=== PATIENT | male | born 1945 | race Caucasian/White ===

== ENCOUNTER 2016-10-03 16:14 | Emergency (ER) | payer MEDICARE, OTHER ==
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
[2016-10-03] MEDS ORDERED: Furosemide 40 MG/4 ML VIAL IVPUSH ONE (16:49)
[2016-10-03] MEDS ORDERED: Sodium Chloride 0.9% 10 ML Syringe FLUSH PRN (16:49)
[2016-10-03] MEDS ORDERED: predniSONE 20 MG Tab PO ONE (18:09)
[2016-10-03 18:58] VITALS: BP 118/88
--- NOTE | 2016-10-04 07:10 | CR ---
Chest: Portable view of the chest was obtained. Comparison: Previous chest x-ray of 02/23/15. Heart size and mediastinum are within normal limits. Lungs are clear with no acute infiltrates. Bony structures are grossly intact. Impression: 1. Nothing acute is identified on portable chest x-ray. Diagnostic code #1
== END 2016-10-03 18:30 | disposition home or self-care (01) ==
LOC: JD.ED 16:14
DX: R07.89 Other chest pain (principal); I25.10 Atherosclerotic heart disease of native coronary artery without angina pectoris; I50.9 Heart failure, unspecified; E78.00 Pure hypercholesterolemia, unspecified; I10 Essential (primary) hypertension; I25.2 Old myocardial infarction; J44.9 Chronic obstructive pulmonary disease, unspecified; G47.30 Sleep apnea, unspecified; N40.0 Benign prostatic hyperplasia without lower urinary tract symptoms; G20 Parkinson's disease; Z87.891 Personal history of nicotine dependence; Z88.8 Allergy status to other drugs, medicaments and biological substances; Z79.899 Other long term (current) drug therapy; Z79.82 Long term (current) use of aspirin; Z79.01 Long term (current) use of anticoagulants; Z95.5 Presence of coronary angioplasty implant and graft
CPT/HCPCS: 36415; 71010; 80053; 81001; 82553; 83880; 84484; 85025; 85610; 86140; 87040; 87804; 93005; 96374; 99285; A9270; J1940; J7050

== ENCOUNTER 2017-02-04 05:40 | Emergency (ER) | payer MEDICARE, OTHER ==
[2017-02-04] MEDS ORDERED: Sodium Chloride 0.9% 10 ML Syringe FLUSH PRN (06:01)
[2017-02-04] MEDS ORDERED: Albuterol/Ipratropium 3.0-0.5 MG/3 ML Neb Soln NEB ONE (06:02)
--- NOTE | 2017-02-04 06:05 | EDM.PDOC ---
<RitaReji A - Last Filed: 02/04/17 11:51> ED HPI GENERAL MEDICAL PROBLEM - General Chief Complaint: Chest Pain Stated Complaint: CHEST PAIN Time Seen by Provider: 02/04/17 05:50 - Related Data Allergies Allergy/AdvReac Type Severity Reaction Status Date / Time ampicillin Allergy Hives Verified 02/04/17 05:49 atorvastatin calcium Allergy Pain Verified 02/04/17 05:49 [From Lipitor] cefazolin sodium [From Ancef] Allergy Anaphylactic Verified 02/04/17 05:49 Shock lisinopril Allergy Cannot Verified 02/04/17 05:49 Remember NSAIDS (Non-Steroidal Allergy Hallucinati Verified 02/04/17 05:49 Anti-Inflamma ons IVP DYE Allergy Hives Uncoded 02/04/17 05:49 Home Meds: Home Meds Aspirin [Adult Low Dose Aspirin EC] 81 mg PO DAILY 10/26/13 [History] Carbidopa/Levodopa [Sinemet Cr 25-100 mg] 1 tab PO TID 10/26/13 [History] ClonazePAM [KlonoPIN] 1 mg PO BEDTIME 10/26/13 [History] Clopidogrel [Plavix] 75 mg PO DAILY 10/26/13 [History] FA/Lycopene/Lut/MV,Ca,Iron,Min [Centrum] 1 tab PO DAILY 10/26/13 [History] Fenofibric Acid (Choline) [Trilipix] 135 mg PO DAILY 10/26/13 [History] Finasteride [Proscar] 5 mg PO DAILY 10/26/13 [History] Fish Oil/[place]-3 Fatty Acids [Fish Oil] 1 each PO DAILY 10/26/13 [History] Homeopathic Product PRN 10/26/13 [History] Metoprolol Succinate [Toprol XL] 25 mg PO DAILY 10/26/13 [History] Nitroglycerin [Nitrostat] 0.4 mg SL PRN 10/26/13 [History] Rosuvastatin [Crestor] 40 mg PO DAILY 10/26/13 [History] Selegiline HCl [Eldepryl] 5 mg PO ASDIRECTED 10/26/13 [History] Solifenacin [Vesicare] 5 mg PO DAILY 10/26/13 [History] Tamsulosin HCl [Flomax] 0.4 mg PO ASDIRECTED 10/26/13 [History] Hydrocodone/Acetaminophen [Butternut 5-325] 1 tab PO Q6HR PRN #14 tablet 08/30/14 [ Rx] oxyCODONE HCl/Acetaminophen [Percocet 5-325 mg Tablet] 1 - 2 each PO Q4H PRN # 12 tablet 10/03/16 [Rx] Magnesium Chloride [Slow-Mag] 71.5 mg PO BID #60 tablet. 02/04/17 [Rx] Ondansetron [Zofran ODT] 4 mg PO Q8H PRN #10 tab.dis 02/04/17 [Rx] Course - Vital Signs Last Recorded V/S: Last Vital Signs Temp 37.2 C 02/04/17 12:09 Pulse 74 02/04/17 12:09 Resp 13 02/04/17 12:09 BP 120/80 02/04/17 12:09 Pulse Ox 95 02/04/17 12:09 - Orders/Labs/Meds Labs: Laboratory Tests 02/04/17 02/04/17 02/04/17 Range/Units 05:52 05:52 05:52 WBC 8.91 (4.23-9.07) K/mm3 RBC 5.47 (4.63-6.08) M/mm3 Hgb 15.6 (13.7-17.5) gm/L Hct 45.7 (40.1-51.0) % MCV 83.5 (79.0-92.2) fl MCH 28.5 (25.7-32.2) pg MCHC 34.1 (32.2-35.5) g/dl RDW Std Deviation 42.0 (35.1-43.9) fL Plt Count 209 (163-337) K/mm3 MPV 9.4 (9.4-12.3) fl Neutrophils % (Manual) 77 H (40-60) % Band Neutrophils % 7 (0-10) % Lymphocytes % (Manual) 8 L (20-40) % Atypical Lymphs % 0 % Monocytes % (Manual) 8 (2-10) % Eosinophils % (Manual) 0 L (0.8-7.0) % Basophils % (Manual) 0 L (0.2-1.2) Platelet Estimate Adequate Plt Morphology Comment Normal RBC Morph Comment Normal PT 11.7 (8.0-13.0) SECONDS INR 1.07 Sodium 135 L (136-145) mEq/L Potassium 3.7 (3.5-5.1) mEq/L Chloride 101 (98-107) mEq/L Carbon Dioxide 25 (21-32) mEq/L Anion Gap 12.7 (5-15) BUN 23 H (7-18) mg/dL Creatinine 1.2 (0.7-1.3) mg/dL Est Cr Clr Drug Dosing 49.11 mL/min Estimated GFR (MDRD) 60 (>60) mL/min BUN/Creatinine Ratio 19.2 H (14-18) Glucose 123 H (83-115) mg/dL Calcium 8.6 (8.5-10.1) mg/dL Magnesium 1.4 L (1.8-2.4) mg/dl Total Bilirubin 0.5 (0.2-1.0) mg/dL AST 21 (15-37) U/L ALT 38 (16-63) U/L Alkaline Phosphatase 59 (46-116) U/L CK-MB (CK-2) 1.0 (0-3.6) ng/ml Troponin I < 0.017 (0.00-0.056) ng/mL C-Reactive Protein 2.1 H* (<1.0) mg/dL B-Natriuretic Peptide (0-100) pg/mL Total Protein 7.7 (6.4-8.2) g/dl Albumin 3.8 (3.4-5.0) g/dl Globulin 3.9 gm/dL Albumin/Globulin Ratio 1.0 (1-2) 02/04/17 Range/Units 05:52 WBC (4.23-9.07) K/mm3 RBC (4.63-6.08) M/mm3 Hgb (13.7-17.5) gm/L Hct (40.1-51.0) % MCV (79.0-92.2) fl MCH (25.7-32.2) pg MCHC (32.2-35.5) g/dl RDW Std Deviation (35.1-43.9) fL Plt Count (163-337) K/mm3 MPV (9.4-12.3) fl Neutrophils % (Manual) (40-60) % Band Neutrophils % (0-10) % Lymphocytes % (Manual) (20-40) % Atypical Lymphs % % Monocytes % (Manual) (2-10) % Eosinophils % (Manual) (0.8-7.0) % Basophils % (Manual) (0.2-1.2) Platelet Estimate Plt Morphology Comment RBC Morph Comment PT (8.0-13.0) SECONDS INR Sodium (136-145) mEq/L Potassium (3.5-5.1) mEq/L Chloride (98-107) mEq/L Carbon Dioxide (21-32) mEq/L Anion Gap (5-15) BUN (7-18) mg/dL Creatinine (0.7-1.3) mg/dL Est Cr Clr Drug Dosing mL/min Estimated GFR (MDRD) (>60) mL/min BUN/Creatinine Ratio (14-18) Glucose (83-115) mg/dL Calcium (8.5-10.1) mg/dL Magnesium (1.8-2.4) mg/dl Total Bilirubin (0.2-1.0) mg/dL AST (15-37) U/L ALT (16-63) U/L Alkaline Phosphatase (46-116) U/L CK-MB (CK-2) (0-3.6) ng/ml Troponin I (0.00-0.056) ng/mL C-Reactive Protein (<1.0) mg/dL B-Natriuretic Peptide 55 (0-100) pg/mL Total Protein (6.4-8.2) g/dl Albumin (3.4-5.0) g/dl Globulin gm/dL Albumin/Globulin Ratio (1-2) Meds: Medications Discontinued Medications Generic Name Dose Route Start Last Admin Trade Name Freq PRN Reason Stop Dose Admin Acetaminophen 650 mg 02/04/17 09:36 02/04/17 10:12 Tylenol PO 02/04/17 09:37 Not Given ONETIME ONE Acetaminophen 650 mg 02/04/17 10:06 02/04/17 10:10 Tylenol PO 02/04/17 10:07 650 mg NOW ONE Administration Acetaminophen Confirm 02/04/17 10:11 02/04/17 10:13 Tylenol Administered 02/04/17 10:12 Not Given Dose 650 mg .ROUTE .STK-MED ONE Al Hydroxide/Mg Hydroxide 30 ml 02/04/17 06:30 02/04/17 06:37 Mag-Al Plus PO 02/04/17 06:31 30 ml ONETIME ONE Administration Albuterol/Ipratropium 3 ml 02/04/17 06:02 02/04/17 06:11 Duoneb 3.0-0.5 Mg/3 Ml NEB 02/04/17 06:03 3 ml ONETIME ONE Administration Magnesium Sulfate 2 gm/ Premix 50 mls @ 25 mls/hr 02/04/17 07:08 02/04/17 07: 30 IV 02/04/17 09:07 25 mls/hr ONETIME ONE Administration Sodium Chloride 1,000 mls @ 150 mls/hr 02/04/17 07:15 02/04/17 07:29 Normal Saline IV 150 mls/hr ASDIRECTED MORALES Administration Sodium Chloride 10 ml 02/04/17 06:01 02/04/17 06:37 Saline Flush FLUSH 10 ml ASDIRECTED PRN Administration Keep Vein Open - Re-Assessments/Exams Free Text/Narrative Re-Assessment/Exam: 02/04/17 11:51 Test results discussed with the patient and his son. Today's workup is remarkable for significantly depressed magnesium, otherwise, the remainder of his workup is unremarkable. The patient received a 2 g magnesium rider here in the ED, and Dr. Gonzalez entered a prescription for Slow-Mag I suspect that the patient's symptoms are related to viral gastroenteritis. The patient states that he feels well enough to go home. I will e-prescribe Zofran. I would like the patient to follow-up with his PCP, Dr. Renee Monreal, tomorrow. 02/04/17 11:56 Departure - Departure Time of Disposition: 11:55 Disposition: Home, Self-Care 01 Condition: Good Clinical Impression: Viral gastroenteritis, Hypomagnesemia - Discharge Information Prescriptions: Magnesium Chloride [Slow-Mag] 71.5 mg PO BID #60 tablet. Ondansetron [Zofran ODT] 4 mg PO Q8H PRN #10 tab.dis PRN Reason: Nausea/Vomiting Instructions: Viral Gastroenteritis, Adult, [id number] Referrals: Renee Monreal MD [Primary Care Provider] - Forms: ED Department Discharge Additional Instructions: You were seen in the emergency room for nausea, vomiting, diarrhea, chest pain, and shortness of breath. Workup in the ER included blood work, an ECG, and a chest x-ray. You were not able to give us a stool sample. Your entire workup was unremarkable, with the exception of your magnesium found to be low at 1.4. You received IV magnesium while in the ER. You have been prescribed Slow-Mag. Take one tablet twice a day, as prescribed. You have been prescribed the anti-nausea medicine Zofran. Dissolve 1 tablet on your tongue up to every 8 hours, as needed for nausea/vomiting. If your diarrhea returns, we recommend you take [id number] Imodium ( loperamide) as directed on the label. Stay adequately hydrated. We recommend you contact the office of your PCP, Dr. Renee Monreal, in the morning, to notify her of today's ER visit. If any other problems, please do not hesitate to return to the ER. <Bryn Gonzalez - Last Filed: 02/06/17 06:57> ED HPI GENERAL MEDICAL PROBLEM - General Source of Information: Reports: Patient History Limitations: Reports: No Limitations - History of Present Illness INITIAL COMMENTS - FREE TEXT/NARRATIVE: 71-year-old male attends the ED due to nausea vomiting and diarrhea and some central chest discomfort and shortness of breath. Patient states that he's became ill yesterday with bad burning in his epigastrium and lower chest has had reflux and vomiting. Stop the was some blood in his emesis. Of note he is on Pradaxa and aspirin. He's had loose watery stools almost every hour. He doesn 't believe there is much chance of him having foodborne illness. He has a history of coronary disease with 3 stents placed he believes in 2004. He has a history of congestive heart failure. He remains on Pradaxa and aspirin daily. Only recent changes to medications have been eyedrops as he underwent right cataract extraction on Sunday, January 31 and YAG laser treatment to secondary cataract on his left eye at the same time. Reports his vision is very clear. He' s not slept at all tonight he's been up sitting in the easy chair most the time or in the bathroom sitting on the toilet. He's had some chills. He feels slightly warm to palpation. Onset: Sudden Onset Date: 02/03/17 Duration: Hour(s):, Getting Worse Location: Reports: Chest (Lower chest up into his throat.), Abdomen Lower Chest Pain Score (Numeric/FACES): 6 Headache Pain Score (Numeric/FACES): 2 Past Medical History Cardiovascular History: Reports: CAD, Heart Failure, High Cholesterol, Hypertension, HI (Inferior wall myocardial infarction), Stents Other Cardiovascular History: 3 stents placed in about 2004. 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 - Past Surgical History Musculoskeletal Surgical History: Reports: Other (See Below) Dermatological Surgical History: Reports: Skin Graft Social & Family History - Tobacco Use Smoking Status *Q: Former Smoker Years of Tobacco use: 34 Used Tobacco, but Quit: Yes Month Tobacco Last Used: 15 Second Hand Smoke Exposure: No - Caffeine Use Caffeine Use: Reports: Coffee, Soda - Alcohol Use Days Per Week of Alcohol Use: 0 - Recreational Drug Use Recreational Drug Use: No - Living Situation & Occupation Living situation: Reports: Other ED ROS GENERAL - Review of Systems Review Of Systems: See Below Constitutional: Reports: Chills, Malaise, Weakness, Fatigue, Decreased Appetite. Denies: Fever HEENT: Reports: Other (Had right cataract extraction 4 days ago and no problems with his vision.) Respiratory: Reports: Shortness of Breath, Wheezing (Quite severe over the last 24 hours.), Cough (Occasional sputum production. Has appreciated brief spots of hemoptysis at times.). Denies: Pleuritic Chest Pain Cardiovascular: Reports: Chest Pain (Controlled with medication), Blood Pressure Problem, Dyspnea on Exertion (Chronic in both lower extremities. Left greater than right.), Edema, Orthopnea ( see history of present illness). Denies: Claudication, Lightheadedness, Palpitations Endocrine: Reports: Fatigue GI/Abdominal: Reports: Abdominal Pain, Diarrhea (Burning in the epigastrium and associated lower abdominal cramping pain with loose watery stools.), Nausea, Vomiting. Denies: Hematemesis, Hematochezia, Melena : Reports: Frequency, Other (Slow urinary stream. Has BPH. Nocturia usually 3.) Musculoskeletal: Reports: Back Pain, Joint Pain (Left ankle and lower extremity due to previous fractures) Skin: Reports: No Symptoms, Other (Venous insufficiency changes in left lower extremity.) Neurological: Reports: Syncope, Difficulty Walking (Due to being short of breath ), Weakness. Denies: Confusion, Dizziness, Headache, Numbness, Tingling Psychiatric: Reports: No Symptoms Hematologic/Lymphatic: Reports: No Symptoms Immunologic: Reports: No Symptoms ED EXAM, GENERAL - Physical Exam Exam: See Below Exam Limited By: No Limitations General Appearance: Alert, Moderate Distress (Respiratory distress. He is working fairly hard to breathe. He is audible wheezing.) Eye Exam: Bilateral Eye: Normal Inspection (Cataract extractions sites healing well. Right eye) Throat/Mouth: Other (Lips are dry as is his oropharynx.) Head: Atraumatic, Normocephalic Neck: Normal Inspection, Non-Tender, Limited Range of Motion (Decreased range of motion of neck due to osteoarthritic changes. Loss of 10 extension and 5 of flexion. Loss of 10 lateral rotation and flexion.). No: Lymphadenopathy (L) , Lymphadenopathy (R) Respiratory/Chest: Lungs Clear, Respiratory Distress (Tachypnea get rest 22/m.) , Decreased Breath Sounds, Wheezing Cardiovascular: Regular Rate, Rhythm (Sinus tachycardia of 10 2/m.), No Murmur, No Rub. No: Normal Peripheral Pulses, No Edema, No Gallop, Systolic Murmur, Gallop/S3 Peripheral Pulses: 1+: Posterior Tibial (L), Posterior Tibial (R), Dorsalis Pedis (L), Dorsalis Pedis (R) GI/Abdominal: Normal Bowel Sounds, Soft, Non-Tender, Abnormal Bowel Sounds ( Hyperactive bowel sounds throughout.). No: Guarding, Rigid, Rebound, Tender Back Exam: Normal Inspection. No: Full Range of Motion, CVA Tenderness (L), CVA Tenderness (R) Extremities: Other (Previous fractures left lower extremity. He has skin grafting left medial distal tib-fib due to a nonhealing ulcer after fractures healed.) Neurological: Alert, Oriented, CN II-XII Intact, Normal Cognition Psychiatric: Normal Affect, Normal Mood Skin Exam: Warm, Intact, Normal Color, No Rash EKG INTERPRETATION EKG Date: 02/04/17 Time: 05:45 Rhythm: Other (Sinus tachycardia at 10 2/m) Rate (Beats/Min): 102 (Occasional PVCs.) [place]: LAD-Left [place] Deviation (Mild left axis deviation of -19) P-Wave: Present QRS: Other (There is early R-wave transition and then poor R-wave progression throughout the mid precordial leads. R wave transition. Consider septal hypertrophy. There are Q waves in leads II, III, and F aVF compatible with an old inferior wall myocardial infarction.) ST-T: Other (Wandering baseline in the limb leads. No definitive evidence of any ischemia changes.) QT: Normal Course - Orders/Labs/Meds Labs: Laboratory Tests 02/04/17 02/04/17 02/04/17 Range/Units 05:52 05:52 05:52 WBC 8.91 (4.23-9.07) K/mm3 RBC 5.47 (4.63-6.08) M/mm3 Hgb 15.6 (13.7-17.5) gm/L Hct 45.7 (40.1-51.0) % MCV 83.5 (79.0-92.2) fl MCH 28.5 (25.7-32.2) pg MCHC 34.1 (32.2-35.5) g/dl RDW Std Deviation 42.0 (35.1-43.9) fL Plt Count 209 (163-337) K/mm3 MPV 9.4 (9.4-12.3) fl Neutrophils % (Manual) 77 H (40-60) % Band Neutrophils % 7 (0-10) % Lymphocytes % (Manual) 8 L (20-40) % Atypical Lymphs % 0 % Monocytes % (Manual) 8 (2-10) % Eosinophils % (Manual) 0 L (0.8-7.0) % Basophils % (Manual) 0 L (0.2-1.2) Platelet Estimate Adequate Plt Morphology Comment Normal RBC Morph Comment Normal PT 11.7 (8.0-13.0) SECONDS INR 1.07 Sodium 135 L (136-145) mEq/L Potassium 3.7 (3.5-5.1) mEq/L Chloride 101 (98-107) mEq/L Carbon Dioxide 25 (21-32) mEq/L Anion Gap 12.7 (5-15) BUN 23 H (7-18) mg/dL Creatinine 1.2 (0.7-1.3) mg/dL Est Cr Clr Drug Dosing 49.11 mL/min Estimated GFR (MDRD) 60 (>60) mL/min BUN/Creatinine Ratio 19.2 H (14-18) Glucose 123 H (83-115) mg/dL Calcium 8.6 (8.5-10.1) mg/dL Magnesium 1.4 L (1.8-2.4) mg/dl Total Bilirubin 0.5 (0.2-1.0) mg/dL AST 21 (15-37) U/L ALT 38 (16-63) U/L Alkaline Phosphatase 59 (46-116) U/L CK-MB (CK-2) 1.0 (0-3.6) ng/ml Troponin I < 0.017 (0.00-0.056) ng/mL C-Reactive Protein 2.1 H* (<1.0) mg/dL B-Natriuretic Peptide (0-100) pg/mL Total Protein 7.7 (6.4-8.2) g/dl Albumin 3.8 (3.4-5.0) g/dl Globulin 3.9 gm/dL Albumin/Globulin Ratio 1.0 (1-2) / Range/Units 05:52 WBC (4.23-9.07) K/mm3 RBC (4.63-6.08) M/mm3 Hgb (13.7-17.5) gm/L Hct (40.1-51.0) % MCV (79.0-92.2) fl MCH (25.7-32.2) pg MCHC (32.2-35.5) g/dl RDW Std Deviation (35.1-43.9) fL Plt Count (163-337) K/mm3 MPV (9.4-12.3) fl Neutrophils % (Manual) (40-60) % Band Neutrophils % (0-10) % Lymphocytes % (Manual) (20-40) % Atypical Lymphs % % Monocytes % (Manual) (2-10) % Eosinophils % (Manual) (0.8-7.0) % Basophils % (Manual) (0.2-1.2) Platelet Estimate Plt Morphology Comment RBC Morph Comment PT (8.0-13.0) SECONDS INR Sodium (136-145) mEq/L Potassium (3.5-5.1) mEq/L Chloride (98-107) mEq/L Carbon Dioxide (21-32) mEq/L Anion Gap (5-15) BUN (7-18) mg/dL Creatinine (0.7-1.3) mg/dL Est Cr Clr Drug Dosing mL/min Estimated GFR (MDRD) (>60) mL/min BUN/Creatinine Ratio (14-18) Glucose (83-115) mg/dL Calcium (8.5-10.1) mg/dL Magnesium (1.8-2.4) mg/dl Total Bilirubin (0.2-1.0) mg/dL AST (15-37) U/L ALT (16-63) U/L Alkaline Phosphatase (46-116) U/L CK-MB (CK-2) (0-3.6) ng/ml Troponin I (0.00-0.056) ng/mL C-Reactive Protein (<1.0) mg/dL B-Natriuretic Peptide 55 (0-100) pg/mL Total Protein (6.4-8.2) g/dl Albumin (3.4-5.0) g/dl Globulin gm/dL Albumin/Globulin Ratio (1-2) Meds: Medications Discontinued Medications Generic Name Dose Route Start Last Admin Trade Name Maryann PRN Reason Stop Dose Admin Acetaminophen 650 mg 02/04/17 09:36 02/04/17 10:12 Tylenol PO 02/04/17 09:37 Not Given ONETIME ONE Acetaminophen 650 mg 02/04/17 10:06 02/04/17 10:10 Tylenol PO 02/04/17 10:07 650 mg NOW ONE Administration Acetaminophen Confirm 02/04/17 10:11 02/04/17 10:13 Tylenol Administered 02/04/17 10:12 Not Given Dose 650 mg .ROUTE .STK-MED ONE Al Hydroxide/Mg Hydroxide 30 ml 02/04/17 06:30 02/04/17 06:37 Mag-Al Plus PO 02/04/17 06:31 30 ml ONETIME ONE Administration Albuterol/Ipratropium 3 ml 02/04/17 06:02 02/04/17 06:11 Duoneb 3.0-0.5 Mg/3 Ml NEB 02/04/17 06:03 3 ml ONETIME ONE Administration Magnesium Sulfate 2 gm/ Premix 50 mls @ 25 mls/hr 02/04/17 07:08 02/04/17 07: 30 IV 02/04/17 09:07 25 mls/hr ONETIME ONE Administration Sodium Chloride 1,000 mls @ 150 mls/hr 02/04/17 07:15 02/04/17 07:29 Normal Saline IV 150 mls/hr ASDIRECTED MORALES Administration Sodium Chloride 10 ml 02/04/17 06:01 02/04/17 06:37 Saline Flush FLUSH 10 ml ASDIRECTED PRN Administration Keep Vein Open - Radiology Interpretation Free Text/Narrative:: 71-year-old male presents to the ED with shortness of breath nausea vomiting and loose watery stools 1 day. He hasn't slept at all due to orthopnea him spending half the night in the toilet. Small possibility of foodborne illness. He does feel slightly warm to palpation but nurses recorded temperatures 36.4. His O2 sats are 93% on room air. He is mildly tachypneic at 22/m. We'll place on oxygen at 2 L/m. He is audible wheezing. Will give DuoNeb. His lower lung shirley sound clear without any rales. He has a history of coronary disease and congestive failure. ECG does not show anything acute it is similar to ECG performed in September of this year. There is evidence of an old inferior wall myocardial infarction. No acute ischemic changes noted plan one view chest x- ray will be done. Routine labs. His will include BMP and magnesium and cardiac markers as a stool her will collected for white blood cells and culture. - Re-Assessments/Exams Free Text/Narrative Re-Assessment/Exam: 02/04/17 06:37 portable chest x-ray is within normal limits. Cardiac silhouette is normal visualized lung shirley are clear. I will give him Maalox 30 mils by mouth for presumed esophagitis from vomiting and reflux. 02/04/17 07:10 labs are coming back. White count is 8.91. Differential pending hemoglobin is 15.6 hematocrit of 45.7. Platelets normal 209,000. Coags reveal a PT of 11.7 INR is 1.07. Sodium 135 potassium 3.7. Bicarbonate is 25. Therefore he is not losing too much fluid per rectum with reported diarrhea. And a gap is 12.7. Creatinine is 1.2 with an EGFR greater than 60. Magnesium is low at 1.4 CRP is mildly elevated at 2.1. Serum troponin is normal at 0.017. BNP is only 55. I will therefore start normal saline at 150 mils per hour. He will be given magnesium 2 g IV over the next hour. 02/04/17 07:20 his burning chest pain is completely resolved after receiving Maalox 30 mils by mouth. He's thirsty and I will allow him to have clear fluid diet. He's had no diarrhea since he's been in the department. Appears that he most likely contracted a viral gastroenteritis. Appears to be little evidence for potential foodborne illness. Prescription written for Slow-Mag 1 tablet twice daily as magnesium supplement once he is discharged. Dr. Salinas will be taking over care as it is change of shift.
[2017-02-04] MEDS ORDERED: Aluminum Hydroxide/Magnesium Hydroxide/Simethicone Susp 30 ML Cup PO ONE (06:30)
[2017-02-04] MEDS ORDERED: Magnesium Sulfate/Water 2 GM in Premix Bag 1 BAG IV ONE (07:08)
[2017-02-04] MEDS ORDERED: Sodium Chloride 0.9% 1,000 ML IV SCH (07:15)
[2017-02-04] MEDS: Acetaminophen Soln 650 MG/20.3 ML UD Cup PO ONE ×2 (10:02→10:12)
[2017-02-04] MEDS ORDERED: Acetaminophen 325 MG Tab PO ONE (10:06)
[2017-02-04] MEDS ORDERED: Acetaminophen 325 MG Tab ONE (10:11)
[2017-02-04 12:16] VITALS: BP 120/80
--- NOTE | 2017-02-04 14:47 | CR ---
Chest: Portable view of the chest was obtained. Comparison: Previous chest x-ray of 10/03/16. Heart size is normal. Tortuous thoracic aorta is seen. Scar is noted within the lateral left costophrenic angle. Lungs otherwise are clear. Previous resection of the distal left clavicle is incidentally noted. Impression: 1. Incidental findings. Nothing acute is identified on portable chest x-ray. Diagnostic code #2
== END 2017-02-04 12:19 | disposition home or self-care (01) ==
LOC: JD.ED 05:40
DX: A08.4 Viral intestinal infection, unspecified (principal); E83.42 Hypomagnesemia; R06.02 Shortness of breath; Z88.1 Allergy status to other antibiotic agents; Z88.8 Allergy status to other drugs, medicaments and biological substances; Z79.82 Long term (current) use of aspirin; Z79.899 Other long term (current) drug therapy; Z87.891 Personal history of nicotine dependence
CPT/HCPCS: 36415; 71010; 80053; 82553; 83735; 83880; 84484; 85025; 85610; 86140; 93005; 94664; 96361; 96365; 96366; 99285; A9270; J7040; J7050; 99284; J3475

== ENCOUNTER 2017-04-21 18:52 | Emergency (ER) | payer MEDICARE, OTHER ==
[2017-04-21 19:04] VITALS: BP 136/84
[2017-04-21] MEDS ORDERED: Lidocaine 1% 50 ML MDV INJECT ONE (19:19)
--- NOTE | 2017-04-21 19:23 | EDM.PDOC ---
ED HPI GENERAL MEDICAL PROBLEM - General Chief Complaint: Lower Extremity Injury/Pain Stated Complaint: MARITZA AMB Time Seen by Provider: 04/21/17 19:13 Source of Information: Reports: Patient, Family History Limitations: Reports: No Limitations (Sinus) - History of Present Illness INITIAL COMMENTS - FREE TEXT/NARRATIVE: 71-year-old male reports that he [place]. States he was walking up a concrete set of stairs when he slipped and caught the corner of the concrete suffering a deep U-shaped laceration to his left anterior tibia. He has had multiple injuries in the past including cortes and large skin grafting due to malignant melanoma greater than 20 years ago. He has very poor circulation to this leg. He is not diabetic. Last tetanus toxoid was felt to be up-to-date about 6 years ago. Patient can still walk on the leg. He did not fall to the ground caught himself on the railing. Injury occurred about 45 minutes ago. Of note the patient is on Plavix and the wound has been bleeding rather aggressively. Onset: Today Onset Date: 04/21/17 Onset Time: 18:25 Duration: Minutes: Location: Reports: Lower Extremity, Left Quality: Reports: Ache, Burning, Stabbing Severity: Moderate Improves with: Reports: None Worsens with: Reports: None Context: Reports: Trauma (Slipped while walking up a concrete [place] stairs [place] the race track.) Associated Symptoms: Reports: No Other Symptoms Treatments CERTIFIED DETENTION DEPUTY: Reports: Other (see below) (None.) - Related Data Allergies Allergy/AdvReac Type Severity Reaction Status Date / Time ampicillin Allergy Hives Verified 04/21/17 18:58 atorvastatin calcium Allergy Pain Verified 04/21/17 18:58 [From Lipitor] cefazolin sodium [From Ancef] Allergy Anaphylactic Verified 04/21/17 18:58 Shock lisinopril Allergy Cannot Verified 04/21/17 18:58 Remember NSAIDS (Non-Steroidal Allergy Hallucinati Verified 04/21/17 18:58 Anti-Inflamma ons IVP DYE Allergy Hives Uncoded 04/21/17 18:58 Home Meds: Home Meds Aspirin [Adult Low Dose Aspirin EC] 81 mg PO DAILY 10/26/13 [History] Carbidopa/Levodopa [Sinemet Cr 25-100 mg] 1 tab PO TID 10/26/13 [History] ClonazePAM [KlonoPIN] 1 mg PO BEDTIME 10/26/13 [History] Clopidogrel [Plavix] 75 mg PO DAILY 10/26/13 [History] FA/Lycopene/Lut/MV,Ca,Iron,Min [Centrum] 1 tab PO DAILY 10/26/13 [History] Fenofibric Acid (Choline) [Trilipix] 135 mg PO DAILY 10/26/13 [History] Finasteride [Proscar] 5 mg PO DAILY 10/26/13 [History] Fish Oil/Woodland-3 Fatty Acids [Fish Oil] 1 each PO DAILY 10/26/13 [History] Homeopathic Product PRN 10/26/13 [History] Metoprolol Succinate [Toprol XL] 25 mg PO DAILY 10/26/13 [History] Nitroglycerin [Nitrostat] 0.4 mg SL PRN 10/26/13 [History] Rosuvastatin [Crestor] 40 mg PO DAILY 10/26/13 [History] Selegiline HCl [Eldepryl] 5 mg PO ASDIRECTED 10/26/13 [History] Solifenacin [Vesicare] 5 mg PO DAILY 10/26/13 [History] Tamsulosin HCl [Flomax] 0.4 mg PO ASDIRECTED 10/26/13 [History] Hydrocodone/Acetaminophen [Ettrick 5-325] 1 tab PO Q6HR PRN #14 tablet 08/30/14 [ Rx] oxyCODONE HCl/Acetaminophen [Percocet 5-325 mg Tablet] 1 - 2 each PO Q4H PRN # 12 tablet 10/03/16 [Rx] Magnesium Chloride [Slow-Mag] 71.5 mg PO BID #60 tablet.dr 02/04/17 [Rx] Ondansetron [Zofran ODT] 4 mg PO Q8H PRN #10 tab.dis 02/04/17 [Rx] Doxycycline [Vibramycin] 100 mg PO Q12HR #20 cap 04/21/17 [Rx] oxyCODONE HCl/Acetaminophen [Percocet 5-325 mg Tablet] 1 - 2 each PO Q4H PRN # 12 tablet 04/21/17 [Rx] Past Medical History HEENT History: Reports: Impaired Vision Other HEENT History: wears eyeglasses Cardiovascular History: Reports: CAD, Heart Failure, High Cholesterol, Hypertension, NM, Stents Other Cardiovascular History: 3 stents placed in about 2004. 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 Musculoskeletal History: Reports: Fracture Neurological History: Reports: Parkinson's Psychiatric History: Reports: Anxiety Oncologic (Cancer) History: Reports: Other (See Below) Other Oncologic History: cancerous tumor removed from bladder, 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 ) lower leg with skin graft - Infectious Disease History Infectious Disease History: Reports: C-Difficile, Measles, Mumps - Past Surgical History HEENT Surgical History: Reports: Eye Surgery GI Surgical History: Reports: Colonoscopy Musculoskeletal Surgical History: Reports: Knee Replacement, Shoulder Surgery Dermatological Surgical History: Reports: Skin Graft Social & Family History - Family History Family Medical History: Noncontributory - Tobacco Use Smoking Status *Q: Former Smoker Years of Tobacco use: 34 Used Tobacco, but Quit: No Month Tobacco Last Used: 15 Second Hand Smoke Exposure: No - Caffeine Use Caffeine Use: Reports: Coffee - Alcohol Use Days Per Week of Alcohol Use: 0 - Recreational Drug Use Recreational Drug Use: No - Living Situation & Occupation Living situation: Reports: Other Review of Systems - Review of Systems Review Of Systems: See Below Constitutional: Reports: No Symptoms Eyes: Reports: Other Ears: Reports: No Symptoms Nose: Reports: No Symptoms Mouth/Throat: Reports: No Symptoms Respiratory: Reports: Shortness of Breath (On exertion.) Cardiovascular: Reports: No Symptoms GI/Abdominal: Reports: No Symptoms Genitourinary: Reports: Other (Frequencies slow urinary stream. Nocturia 4) Musculoskeletal: Reports: Back Pain, Joint Pain (Knees hips shoulders and neck.) Skin: Reports: Bruising Neurological: Reports: No Symptoms (Bruises easily because of being on Plavix and aspirin.) Psychiatric: Reports: No Symptoms ED EXAM, GENERAL - Physical Exam Exam: See Below Exam Limited By: No Limitations General Appearance: Alert, WD/WN, Anxious, Mild Distress Respiratory/Chest: No Respiratory Distress, Decreased Breath Sounds, Wheezing ( Occasional expiratory wheeze has COPD clinically). No: Rhonchi Cardiovascular: Regular Rate, Rhythm, No Murmur, No Rub, Tachycardia ( Tachycardia at rest at 102 but it is subtle to 88/m and at this time). No: Normal Peripheral Pulses Peripheral Pulses: 1+: Posterior Tibial (L), Posterior Tibial (R), Dorsalis Pedis (L), Dorsalis Pedis (R) Extremities: Other (Patient is suffered a U-shaped laceration to the mid lower anterior left tib-fib. Is a partially 11 cm in length. Is a large flap laceration. It is adjacent to previous scars from cortes to the leg as well as skin grafting to the medial aspect of the calf and leg apparently a large melanoma was removed 20 years ago. Mild edema in the foot.) Neurological: Alert ( Barely palpable pulse dorsalis pedis.), Oriented, CN II- XII Intact, Normal Cognition Psychiatric: Normal Affect, Normal Mood Skin Exam: Warm, Dry, Intact, Normal Color, No Rash ED TRAUMA EXTREMITY PROCEDURES - Laceration/Wound Repair Left Middle Anterior Leg Lac/Wound Length In cm: 11 (Has a deep flap laceration to the anterior aspect of the mid lower tibia.) Appearance: Subcutaneous, Muscle, Clean Distal NVT: Neuro & Vascular Intact Anesthetic Type: Local Local Anesthesia - Lidocaine (Xylocaine): 1% Plain Local Anesthetic Volume: Other Skin Prep: Chlorhexidine (Hibiciens) (15 mL), Saline Exploration/Debridement/Repair: Wound Explored, Minimal Debridement Closed With: Sutures Suture Size: 3-0 # of Sutures: 22 Suture Type: Nylon, Interrupted, Simple Course - Vital Signs Last Recorded V/S: Last Vital Signs Temp 36.3 C 04/21/17 18:52 Pulse 102 H 04/21/17 18:52 Resp 18 04/21/17 18:52 BP 136/84 04/21/17 18:52 Pulse Ox 91 L 04/21/17 18:52 - Orders/Labs/Meds Meds: Medications Discontinued Medications Generic Name Dose Route Start Last Admin Trade Name Freq PRN Reason Stop Dose Admin Doxycycline Hyclate 200 mg 04/21/17 20:13 04/21/17 20:15 Vibramycin PO 04/21/17 20:14 200 mg ONETIME ONE Administration Lidocaine HCl 50 ml 04/21/17 19:19 04/21/17 20:13 Xylocaine 1% INJECT 04/21/17 19:20 50 ml ONETIME ONE Administration - Radiology Interpretation Free Text/Narrative:: 71-year-old male presents to the ED with a acute injury to his left anterior tib -fib. Patient states he slipped while walking [place]. Caught the corner of the concrete stair which resulted in a U-shaped laceration about 11 cm in length to the anterior tibia. The leg is been previously traumatized by surgery with skin grafting to the medial lower tib- fib and calf from a millimeter melanoma 20 years ago. Previous deep third- degree cortes to the leg medially as well. He has peripheral vascular disease and barely palpable pulses in his left foot. He is not diabetic however. He still able to weight-bear on the leg. Wound is actively bleeding as he is on Plavix because of coronary disease and stents. - Re-Assessments/Exams Free Text/Narrative Re-Assessment/Exam: 04/21/17 20:20: Laceration has been repaired left anterior tibia. The laceration does go down to the anterior tibia. Muscle tissue was involved. Wound was thoroughly irrigated and then sutured in the intermittent fashion using both simple sutures and horizontal mattress sutures to close the wound. 22 sutures were utilized at all. Sutures to be removed in 12 days time. I'm going to place him on antibiotic for prophylaxis as he is very poor circulation to the left upper extremity with previous surgeries 2 including skin grafting. Placed on doxycycline 100 mg twice daily for the next 10 days. Initial dose was given in the ED 200 mg. Provided 12 tablets of Percocet for pain relief 1 tablet every 6 hours as needed . He will elevate the leg and apply ice pack to the area today and tomorrow. Departure - Departure Time of Disposition: 20:13 Disposition: Home, Self-Care 01 Condition: Fair Clinical Impression: Laceration of left lower leg Qualifiers: Encounter type: initial encounter Qualified Code(s): S81.812A - Laceration without foreign body, left lower leg, initial encounter - Discharge Information Prescriptions: Doxycycline [Vibramycin] 100 mg PO Q12HR #20 cap oxyCODONE HCl/Acetaminophen [Percocet 5-325 mg Tablet] 1 - 2 each PO Q4H PRN # 12 tablet PRN Reason: pain relief. Instructions: Laceration Care, Adult Referrals: Renee Monreal MD [Primary Care Provider] - Forms: ED Department Discharge Additional Instructions: Evaluation the emergency room tonight in regards to a deep laceration to your left lower leg that occurred out the race track. Laceration occurred from slipping and falling with the corner of the cement stair resulting in a deep horseshoe shaped laceration to the left lower leg. Wound was cleansed and then sutured closed with 22 stitches Treatment at home is to leave the initial dressing in place for 2 days. Then it may come off and cleanse the wound with soap and water and showering is okay. Then apply topical antibiotic such as bacitracin or Polysporin to the wound once daily and cover with bandages to prevent pants rubbing on the wound and to keep the wound clean. Sutures will need to be removed in 12 days time. Continue pain medication as per your usual. If you find Tylenol alone is not enough for the pain may use one Percocet tablet for pain relief every 6 hours as needed. Also will need to be on antibiotic doxycycline 100 mg twice daily for the next 10 days to prevent secondary wound infection. Note this medication must not be taken within 2 hours of taking your magnesium supplement. They must not be taken together. Follow up with your personal doctor in 12 days time to have the sutures removed. Elevate the leg is much as possible and apply ice pack to the area one half hour out of every 6 hours today and tomorrow.
[2017-04-21] MEDS ORDERED: Doxycycline 100 MG Cap PO ONE (20:13)
== END 2017-04-21 20:30 | disposition home or self-care (01) ==
LOC: SUPCPDRO 18:52 → JD.ED 18:52
DX: S81.812A Laceration without foreign body, left lower leg, initial encounter (principal); I11.0 Hypertensive heart disease with heart failure; I50.9 Heart failure, unspecified; E78.00 Pure hypercholesterolemia, unspecified; I25.2 Old myocardial infarction; K21.9 Gastro-esophageal reflux disease without esophagitis; Z88.1 Allergy status to other antibiotic agents; Z79.82 Long term (current) use of aspirin; Z79.899 Other long term (current) drug therapy; Z87.891 Personal history of nicotine dependence; W18.49XA Other slipping, tripping and stumbling without falling, initial encounter
CPT/HCPCS: 12004; 99283; A9270

== ENCOUNTER 2018-02-04 06:01 | Day surgery (SDC) | payer MEDICARE, OTHER ==
--- NOTE | 2018-01-31 13:11 | PCM.PREANE ---
Preanesthetic Assessment - Anesthesia/Transfusion/Family Hx Anesthesia History: Prior Anesthesia Without Reaction Family History of Anesthesia Reaction: No Transfusion History: No Prior Transfusion(s) Intubation History: Unknown - Review of Systems General: No Symptoms Pulmonary: No Symptoms (History of SONJA- uses CPAP/History of COPD/quit smoking 1998), Shortness of Breath, Wheezing Cardiovascular: No Symptoms (HTN- CAD with stents placed times 2 2004, and 2011. ), Chest Pain (no nitrostat taken), Palpitations, Dyspnea on Exertion, Edema ( slight/patient states this is his normal), Lightheadedness (postural changes) Gastrointestinal: No Symptoms (History of hiatal hernia/ GERD) Neurological: No Symptoms (History of Parkinson's), Dizziness (Postural dizziness noted), Numbness (left thigh on occasion) Other: Reports: None (History of bladder cancer/), Easy Bleeding, Easy Bruising , Neck Pain (on occasion), Anxiety - Physical Assessment NPO Status Date: 02/03/18 NPO Status Time: 23:00 Pulse: 85 O2 Sat by Pulse Oximetry: 94 Respiratory Rate: 20 Blood Pressure: 138/93 Temperature: 36.3 C Height: 1.65 m Weight: 92.986 kg ASA Class: 3 Mental Status: Alert & Oriented x3 Airway Class: Mallampati = 3 Dentition: Reports: Dentures Thyro-Mental Finger Breadths: 3 Mouth Opening Finger Breadths: 3 ROM/Head Extension: Limited/Partial Lungs: Clear to Auscultation, Normal Respiratory Effort Cardiovascular: Regular Rate, Regular Rhythm, No Murmurs - Lab Values: Laboratory Last Values MRSA (PCR) Negative 01/30/18 11:12 All lab values reviewed and noted and within acceptable ranges to proceed with scheduled procedure. - Imaging/EKG Impressions: CXR= negative EKG= SR rate= 71, left axis deviation, low voltage extremity leads Echocardiogram: November 2015 EF= 70-75%, grade I diastolic dysfunction - Allergies Allergies/Adverse Reactions: Allergies Allergy/AdvReac Type Severity Reaction Status Date / Time ampicillin Allergy Hives Verified 04/21/17 18:58 cefazolin sodium [From Anc] Allergy Anaphylactic Verified 04/21/17 18:58 Shock Iodinated Contrast- Oral and Allergy Hives Verified 01/31/18 10:49 IV Dye lisinopril Allergy Cannot Verified 04/21/17 18:58 Remember atorvastatin calcium AdvReac Pain Verified 01/31/18 10:48 [From Lipitor] NSAIDS (Non-Steroidal AdvReac Contraindications Verified 02/01/18 12:18 Anti-Inflamma d/t taking Plavix - Anesthesia Plan Pre-Op Medication Ordered: Beta Brijesh Beta Brijesh: Metoprolol Med Last Dose Date: 02/04/18 Med Last Dose Time: 05:00 - Acknowledgements Anesthesia Type Planned: General Anesthesia, Spinal (Plavix off for only 5 days therefore general anesthetic warranted.) Pt an Appropriate Candidate for the Planned Anesthesia: Yes Alternatives and Risks of Anesthesia Discussed w Pt/Guardian: Yes Pt/Guardian Understands and Agrees with Anesthesia Plan: Yes PreAnesthesia Questionnaire HEENT History: Reports: Impaired Vision Other HEENT History: wears eyeglasses Cardiovascular History: Reports: CAD, Heart Failure, High Cholesterol, Hypertension, AR, Stents Other Cardiovascular History: 3 stents placed in about 2004. 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 Musculoskeletal History: Reports: Fracture Neurological History: Reports: Parkinson's Psychiatric History: Reports: Anxiety Oncologic (Cancer) History: Reports: Other (See Below) Other Oncologic History: cancerous tumor removed from bladder, 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 ) lower leg with skin graft - Infectious Disease History Infectious Disease History: Reports: C-Difficile, Measles, Mumps - Past Surgical History HEENT Surgical History: Reports: Eye Surgery GI Surgical History: Reports: Colonoscopy Musculoskeletal Surgical History: Reports: Knee Replacement, Shoulder Surgery Dermatological Surgical History: Reports: Skin Graft - HOME MEDS Home Medications: Home Meds Acetaminophen [Tylenol Extra Strength] 1,000 mg PO Q4H PRN 02/01/18 [History] Aspirin 81 mg PO DAILY 02/01/18 [History] Carbidopa/Levodopa [Sinemet 25-100 mg Tablet] 1 tab PO DAILY 02/01/18 [History] Clopidogrel [Plavix] 75 mg PO DAILY 02/01/18 [History] Finasteride [Proscar] 5 mg PO DAILY 02/01/18 [History] Fluocinonide [Lidex 0.05% Crm] 0.05 BID 02/01/18 [History] Metoprolol Succinate 50 mg PO DAILY 02/01/18 [History] Multivitamin [Multi-Vitamin Daily] 1 tab PO DAILY 02/01/18 [History] Nitroglycerin [Nitrostat] 0.4 mg BUCCAL ASDIRECTED PRN 02/01/18 [History] Casselberry-3/DHA/Epa/Fish Oil [Casselberry 3 500 Softgel] 1,000 mg PO DAILY 02/01/18 [ History] Oxybutynin [Oxybutynin ER] 5 mg PO DAILY 02/01/18 [History] Pravastatin [Pravachol] 80 mg PO DAILY 02/01/18 [History] Selegiline HCl 2.5 mg PO DAILY 02/01/18 [History] Silver Sulfadiazine [Silvadene 1% Cream 20 GM] TOP BID 02/01/18 [History] Tamsulosin [Flomax] 0.4 mg PO BID 02/01/18 [History] clonazePAM [Klonopin] 1 mg PO BEDTIME 02/01/18 [History] - CURRENT (IN HOUSE) MEDS Current Meds: Current Medications Acetaminophen (Tylenol) 975 mg PO ONETIME MORALES Stop: 02/04/18 12:00 Oxycodone HCl (Oxycontin) 10 mg PO ONETIME MORALES Stop: 02/04/18 12:00 Pregabalin (Lyrica) 50 mg PO ONETIME MORALES Stop: 02/04/18 12:00
[~2018-02-04 06:01] MED LIST: Acetaminophen 325 MG Tab PO SCH; EPINEPHrine 1 MG/ML SDV ONE; Lactated Ringers 1,000 ML IV SCH; Lidocaine 1%/Sod Bicarbonate in NS 8.4% 1 ML Syringe IDERM PRN; Pregabalin 25 MG Cap PO SCH; Ropivacaine 0.5% 5 MG/ML 30 ML SDV ONE; Sodium Chloride 0.9% 10 ML Syringe FLUSH PRN; oxyCODONE ER 10 MG TAB.ER PO SCH
[2018-02-04] MEDS ORDERED: Bupivacaine 0.75% 30 ML SDV ONE (06:13)
[2018-02-04] MEDS ORDERED: Ondansetron 4 MG/2 ML SDV ONE (06:13)
[2018-02-04] MEDS ORDERED: Phenylephrine/Normal Saline 100 MCG/ML 10 ML Syringe ONE (06:13)
[2018-02-04] MEDS ORDERED: Lactated Ringers 1,000 ML ONE (06:13)
[2018-02-04] MEDS ORDERED: Lidocaine 1% 0 ML ONE (06:13)
[2018-02-04] MEDS ORDERED: ceFAZolin 1 GM Vial ONE (06:14)
[2018-02-04] MEDS ORDERED: Midazolam 1 MG/ML 2 ML SDV ONE (06:14)
[2018-02-04] MEDS ORDERED: Propofol 200 MG/20 ML SDV ONE ×2 (06:14→06:57)
[2018-02-04] MEDS ORDERED: fentaNYL 100 MCG/2 ML SDV ONE (06:14)
[2018-02-04] MEDS ORDERED: Iodine/Sodium Iodide 2% Tincture 30 ML Bottle ONE (06:15)
[2018-02-04] MEDS ORDERED: Albuterol 0.083% 2.5 MG/3 ML Neb Soln NEB ONE (06:33)
[2018-02-04] MEDS ORDERED: Albuterol 0.083% 2.5 MG/3 ML Neb Soln ONE (06:38)
[2018-02-04] MEDS ORDERED: Ondansetron 4 MG/2 ML SDV IVPUSH PRN ×2 (06:45→07:32)
[2018-02-04] MEDS ORDERED: Morphine 2 MG/ML Syringe IVPUSH PRN (06:45)
[2018-02-04] MEDS ORDERED: Bisacodyl 5 MG Tab PO PRN (06:45)
[2018-02-04] MEDS ORDERED: Magnesium Hydroxide 400 MG/5 ML Susp 30 ML Cup PO PRN (06:45)
[2018-02-04] MEDS ORDERED: Sennosides 8.6 MG Tab PO PRN (06:45)
[2018-02-04] MEDS ORDERED: Naloxone 0.4 MG/ML SDV IVPUSH PRN (06:45)
[2018-02-04] MEDS ORDERED: Succinylcholine/Normal Saline 100 MG/5 ML Syringe ONE (06:56)
[2018-02-04] MEDS ORDERED: Rocuronium 50 MG/5 ML Vial ONE (06:56)
[2018-02-04] MEDS ORDERED: fentaNYL 250 MCG/5 ML SDV ONE (06:57)
[2018-02-04] MEDS ORDERED: Dexamethasone 4 MG/ML SDV ONE ×2 (06:59)
[2018-02-04] MEDS ORDERED: Lidocaine 1% 2 ML ONE ×4 (07:00→08:09)
[2018-02-04] MEDS ORDERED: HYDROmorphone 0.5 MG/0.5 ML Syringe ONE ×2 (07:14→07:24)
[2018-02-04] MEDS ORDERED: Haloperidol Lactate 5 MG/ML SDV IVPUSH PRN (07:32)
[2018-02-04] MEDS ORDERED: ePHEDrine 50 MG/ML SDV IVPUSH PRN (07:32)
[2018-02-04] MEDS ORDERED: fentaNYL 100 MCG/2 ML SDV IVPUSH PRN (07:32)
[2018-02-04] MEDS ORDERED: diphenhydrAMINE 50 MG/ML SDV IVPUSH PRN (07:32)
[2018-02-04] MEDS ORDERED: HYDROmorphone 0.5 MG/0.5 ML Syringe IVPUSH PRN (07:33)
[2018-02-04] MEDS ORDERED: Albuterol 0.083% 2.5 MG/3 ML Neb Soln NEB PRN (07:35)
[2018-02-04] MEDS ORDERED: Phenylephrine 1 MG in Sodium Chloride 0.9% 10 ML IV SCH (07:45)
[2018-02-04] MEDS: Bupivacaine 0.25% 30 ML SDV ONE ×2 (07:55→08:13)
[2018-02-04] MEDS: ceFAZolin 1 GM Vial ONE ×2 (07:55→08:11)
[2018-02-04] MEDS: Vancomycin 1 GM SDV ONE ×2 (07:56→08:16)
[2018-02-04] MEDS: Morphine 8 MG, EPINEPHrine 0.3 MG, Cefuroxime 750 MG, Ketorolac 30 MG, Sodium Chloride ... ONE ×10 (07:56→08:12)
[2018-02-04] MEDS ORDERED: ePHEDrine/Normal Saline 25 MG/5 ML Syringe ONE (08:26)
[2018-02-04] MEDS ORDERED: Ketorolac 15 MG/ML SDV IVPUSH PRN (09:00)
--- NOTE | 2018-02-04 09:00 | PCM.POSTAN ---
POST ANESTHESIA ASSESSMENT - MENTAL STATUS Mental Status: Alert - VITAL SIGNS Pulse Rate: 100 SaO2: 93 Resp Rate: 8 Blood Pressure: 109/55 Temperature: 36.4 C - RESPIRATORY Respiratory Status: Respiratory Rate WNL, Airway Patent, O2 Saturation Stable, Supplemental Oxygen - CARDIOVASCULAR CV Status: Pulse Rate WNL, Blood Pressure Stable - GASTROINTESTINAL GI Status: No Symptoms - POST OP HYDRATION Hydration Status: Adequate & Stable
[2018-02-04] MEDS ORDERED: Nitroglycerin 0.4 MG Tab.SL SL PRN (09:06)
--- NOTE | 2018-02-04 10:01 | CR ---
Left knee: AP and lateral views of left knee were obtained. Comparison: Previous MRI left knee study of 12/09/12. Knee prosthesis is seen. Components are aligned. Soft tissue air is noted from surgical procedure. Underlying bony structures are intact. Impression: 1. Satisfactory postoperative radiographic appearance of recently placed left knee prosthesis. Diagnostic code #2
--- NOTE | 2018-02-04 11:12 | PCM.SN ---
- Free Text/Narrative Note: Time Out: 902 Start: 902 Stop: 914 Procedure: Left adductor canal block under US guidance for post operative pain control requested by Dr. Marroquin. In PACU, monitors, alarms on, O2 via nasal cannula on. Patient in supine position with all pressure points checked and padded. Patient comfortable with IV narcotics given during Left Total Knee replacement under general anesthesia. Sterile gloves, sterile probe cover, masks noted for procedure: Left upper leg prepped times two chloroprep's. Via US guidance left femur visualized and probe positioned medially with Left femoral artery and vein visualized. 2ml's of 1% lidocaine used to localize area. 4 inch stimiplex needle advanced under US guidance to the adductor canal area. 25ml's of 0.5% Ropivacaine with 1:200,000 epinephrine administered via incremental doses with negative aspiration also noted. Patient tolerated procedure well with no c/o noted during block placement. Thank you, Lana CISNEROS
[2018-02-04] MEDS ORDERED: Lactated Ringers 500 ML IV ONE (11:25)
[2018-02-04] MEDS ORDERED: Levalbuterol HCl 1.25 MG/3 ML Neb NEB PRN (11:28)
[2018-02-04] MEDS ORDERED: Lactated Ringers 250 ML IV ONE (11:36)
[2018-02-04] MEDS ORDERED: Midodrine 5 MG Tab PO ONE (12:20)
--- NOTE | 2018-02-04 12:20 | PCM.CONS ---
H&P History of Present Illness - General Date of Service: 02/04/18 Admit Problem/Dx: Admission Diagnosis/Problem Admission Diagnosis/Problem Osteoarthritis of knee Source of Information: Patient, Family (grandson ), Old Records, Provider, RN, RN Notes Reviewed History Limitations: Reports: No Limitations - History of Present Illness Initial Comments - Free Text/Narative: Phill Meraz is a 72 yo male patient of Dr. Marroquin who is post-operative day 0 of left TKA. Hospital medicine was consulted for post-operative medical care. At this time he is resting comfortably in bed. Pain is controlled. He has been somwhat hypotensive and a second 250mL LR fluid bolus is infusing. Discussed with Dr. Maya and he suggested midodrine 5mg onetime, which has been ordered. Phill currently denies any chest pain, shortness of breath, palpitations, nausea, or vomiting. He carries a history of: Impaired vision, CAD, Heart failure, HLD, HTN, CT with 3 stents placed in 2004, COPD, SONJA on CPAP, GERD, BPH , bladder cancer, Parkinson's disease, anxiety, hx/o C. diff infection, Hx/o H. Pylori, Dyspepsia, gastritis, melanoma, bilateral LE claudication. He is a former smoker. He is a full code. His primary care provider is Dr. Monreal at [facility]. Left Knee Pain Score (Numeric/FACES): 0 - Related Data Allergies/Adverse Reactions: Allergies Allergy/AdvReac Type Severity Reaction Status Date / Time Iodinated Contrast- Oral and Allergy Hives Verified 01/31/18 10:49 IV Dye lisinopril Allergy Cannot Verified 04/21/17 18:58 Remember ampicillin AdvReac Nausea and Verified 02/04/18 08:41 Vomiting atorvastatin calcium AdvReac Pain Verified 01/31/18 10:48 [From Lipitor] cefazolin AdvReac Nausea and Verified 02/04/18 08:42 Vomiting NSAIDS (Non-Steroidal AdvReac Contraindications Verified 02/01/18 12:18 Anti-Inflamma d/t taking Plavix Home Medications: Home Meds Acetaminophen [Tylenol Extra Strength] 1,000 mg PO Q4H PRN 02/01/18 [History] Aspirin 81 mg PO DAILY 02/01/18 [History] Carbidopa/Levodopa [Sinemet 25-100 mg Tablet] 1 tab PO DAILY 02/01/18 [History] Clopidogrel [Plavix] 75 mg PO DAILY 02/01/18 [History] Finasteride [Proscar] 5 mg PO DAILY 02/01/18 [History] Metoprolol Succinate 50 mg PO DAILY 02/01/18 [History] Multivitamin [Multi-Vitamin Daily] 1 tab PO DAILY 02/01/18 [History] Nitroglycerin [Nitrostat] 0.4 mg BUCCAL ASDIRECTED PRN 02/01/18 [History] [place]-3/DHA/Epa/Fish Oil [[place] 3 500 Softgel] 1,000 mg PO DAILY 02/01/18 [ History] Oxybutynin [Oxybutynin ER] 5 mg PO DAILY 02/01/18 [History] Pravastatin [Pravachol] 80 mg PO DAILY 02/01/18 [History] Selegiline HCl 2.5 mg PO DAILY 02/01/18 [History] Tamsulosin [Flomax] 0.4 mg PO BID 02/01/18 [History] clonazePAM [Klonopin] 1 mg PO BEDTIME 02/01/18 [History] Past Medical History HEENT History: Reports: Impaired Vision Other HEENT History: wears eyeglasses Cardiovascular History: Reports: CAD, Heart Failure, High Cholesterol, Hypertension, CT, Stents Other Cardiovascular History: 3 stents placed in about 2004. 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 Musculoskeletal History: Reports: Fracture Other Musculoskeletal History: DJD, TKA, Right Knee Arthroscopy, Shoulder Arthroscopy, Femur Sx Neurological History: Reports: Parkinson's Other Neuro History: Dizziness Psychiatric History: Reports: Anxiety Other Psychiatric History: REM Sleep Disorder Other Hematologic History: Hypomagnesemia Oncologic (Cancer) History: Reports: Other (See Below) Other Oncologic History: cancerous tumor removed from bladder, 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 ) lower leg with skin graft - Infectious Disease History Infectious Disease History: Reports: C-Difficile, Measles, Mumps - Past Surgical History HEENT Surgical History: Reports: Eye Surgery GI Surgical History: Reports: Colonoscopy Musculoskeletal Surgical History: Reports: Knee Replacement, Shoulder Surgery Dermatological Surgical History: Reports: Skin Graft Social & Family History - Family History Family Medical History: Noncontributory - Caffeine Use Caffeine Use: Reports: Coffee - Living Situation & Occupation Living situation: Reports: Other H&P Review of Systems - Review of Systems: Review Of Systems: See Below General: Reports: No Symptoms HEENT: Reports: No Symptoms Pulmonary: Reports: No Symptoms. Denies: Shortness of Breath, Wheezing, Cough, Sputum Cardiovascular: Reports: No Symptoms. Denies: Chest Pain, Palpitations, Lightheadedness Gastrointestinal: Reports: No Symptoms. Denies: Abdominal Pain, Constipation, Diarrhea, Nausea, Vomiting Genitourinary: Reports: No Symptoms Musculoskeletal: Reports: Leg Pain Skin: Reports: No Symptoms Psychiatric: Reports: No Symptoms Neurological: Reports: No Symptoms Hematologic/Lymphatic: Reports: No Symptoms Immunologic: Reports: No Symptoms Exam - Exam Exam: See Below - Vital Signs Vital Signs: Last Vital Signs Temp 97.5 F 02/04/18 09:00 Pulse 100 02/04/18 09:00 Resp 8 L 02/04/18 09:00 BP 109/55 L 02/04/18 09:00 Pulse Ox 95 02/04/18 09:33 Weight: 205 lb - Exam Quality Assessment: Supplemental Oxygen, DVT Prophylaxis. No: Urinary Catheter General: Oriented, Cooperative, Sedated (very sleepy). No: Mild Distress HEENT: Conjunctiva Clear, EACs Clear, EOMI, Hearing Intact, Mucosa Moist & [place] , Nares Patent, Posterior Pharynx Clear, PERRLA Neck: Supple, Trachea Midline Lungs: Normal Respiratory Effort, Decreased Breath Sounds Cardiovascular: Regular Rate, Regular Rhythm GI/Abdominal Exam: Normal Bowel Sounds, Soft, Non-Tender, No Organomegaly, No Distention, No Abnormal Bruit, No Mass, Pelvis Stable (Male) Exam: Deferred Rectal (Males) Exam: Deferred Back Exam: Normal Inspection, Full Range of Motion Extremities: Normal Inspection, Normal Range of Motion, Non-Tender, No Pedal Edema, Normal Capillary Refill Peripheral Pulses: 2+: Radial (L), Radial (R), Posterior Tibial (L), Posterior Tibial (R), Dorsalis Pedis (L), Dorsalis Pedis (R) Skin: Warm, Dry, Intact Neurological: Cranial Nerves Intact (grossly) Neuro Extensive - Mental Status: Alert, Oriented x3, Normal Mood/Affect, Normal Cognition, Memory Intact Psychiatric: Alert, Normal Affect, Normal Mood - Patient Data Lab Results Last 24 hrs: Laboratory Results - last 24 hr 02/04/18 Range/Units 11:57 Hgb 14.0 (13.7-17.5) gm/L Hct 42.8 (40.1-51.0) % Result Diagrams: 02/04/18 11:57 Consult PN Assessment/Plan POD#: 0 Procedures: Procedures ASSAY OF MAGNESIUM (02/04/17) ASSAY OF NATRIURETIC PEPTIDE (02/04/17) ASSAY OF TROPONIN QUANT (02/04/17) BLOOD CULTURE FOR BACTERIA (10/03/16) C-REACTIVE PROTEIN (02/04/17) CHEST X-RAY 1 VIEW FRONTAL (02/04/17) CHEST X-RAY 2VW FRONTAL&LATL (02/23/15) COMPLETE CBC W/AUTO DIFF WBC (02/04/17) COMPREHEN METABOLIC PANEL (02/04/17) CREATINE MB FRACTION (02/04/17) CT ABD & PELV W/CONTRAST (08/29/14) ELECTROCARDIOGRAM TRACING (02/04/17) EMERGENCY DEPT VISIT (04/21/17) EMERGENCY DEPT VISIT (02/04/17) EMERGENCY DEPT VISIT (02/23/15) EMERGENCY DEPT VISIT (10/26/13) EVALUATE PT USE OF INHALER (02/04/17) HYDRATE IV INFUSION ADD-ON (02/04/17) INFLUENZA ASSAY W/OPTIC (10/03/16) PROTHROMBIN TIME (02/04/17) ROUTINE VENIPUNCTURE (02/04/17) RPR S/N/AX/GEN/TRK7.6-12.5CM (04/21/17) THER/PROPH/DIAG INJ IV PUSH (10/03/16) THER/PROPH/DIAG IV INF ADDON (02/04/17) THER/PROPH/DIAG IV INF INIT (02/04/17) THROMBOPLASTIN TIME PARTIAL (02/23/15) TX/PRO/DX INJ NEW DRUG ADDON (08/29/14) URINALYSIS AUTO W/SCOPE (10/03/16) X-RAY EXAM OF FOOT (10/26/13) X-RAY EXAM OF HAND (02/23/15) (1) S/P total knee arthroplasty SNOMED Code(s): 7676011759390, 198753814, 8492615087995 Code(s): Z96.659 - PRESENCE OF UNSPECIFIED ARTIFICIAL KNEE JOINT Priority: High Current Visit: Yes Qualifiers: Laterality: left Qualified Code(s): Z96.652 - Presence of left artificial knee joint (2) Hypotension SNOMED Code(s): 60519703 Code(s): I95.9 - HYPOTENSION, UNSPECIFIED Priority: High Current Visit: Yes Qualifiers: Hypotension type: postprocedural hypotension Qualified Code(s): I95.81 - Postprocedural hypotension (3) Hypoxia SNOMED Code(s): 819772770 Code(s): R09.02 - HYPOXEMIA Priority: High Current Visit: Yes (4) Osteoarthritis SNOMED Code(s): 694596117 Code(s): M19.90 - UNSPECIFIED OSTEOARTHRITIS, UNSPECIFIED SITE Priority: High Current Visit: Yes Qualifiers: Osteoarthritis location: knee Osteoarthritis type: primary Laterality: left Qualified Code(s): M17.12 - Unilateral primary osteoarthritis, left knee (5) CAD (coronary artery disease) SNOMED Code(s): 99153037 Code(s): I25.10 - ATHSCL HEART DISEASE OF [place] CORONARY ARTERY W/O ANG PCTRS Priority: Medium Current Visit: No Qualifiers: Coronary Disease-Associated Artery/Lesion type: unspecified vessel or lesion type [place] vs. transplanted heart: unspecified whether [place] or transplanted heart Associated angina: angina presence unspecified Qualified Code(s): I25.10 - Atherosclerotic heart disease of [place] coronary artery without angina pectoris (6) Heart failure SNOMED Code(s): 33199261 Code(s): I50.9 - HEART FAILURE, UNSPECIFIED Priority: Medium Current Visit: Yes Qualifiers: Heart failure type: unspecified Heart failure chronicity: unspecified Qualified Code(s): I50.9 - Heart failure, unspecified (7) HLD (hyperlipidemia) SNOMED Code(s): 79639735 Code(s): E78.5 - HYPERLIPIDEMIA, UNSPECIFIED Priority: Medium Current Visit: No Qualifiers: Hyperlipidemia type: unspecified Qualified Code(s): E78.5 - Hyperlipidemia , unspecified (8) HTN (hypertension) SNOMED Code(s): 99356125 Code(s): I10 - ESSENTIAL (PRIMARY) HYPERTENSION Priority: Medium Current Visit: No Qualifiers: Hypertension type: unspecified Qualified Code(s): I10 - Essential (primary ) hypertension (9) History of myocardial infarction SNOMED Code(s): 952856663 Code(s): I25.2 - OLD MYOCARDIAL INFARCTION Priority: Medium Current Visit : No (10) COPD (chronic obstructive pulmonary disease) SNOMED Code(s): 00294094 Code(s): J44.9 - CHRONIC OBSTRUCTIVE PULMONARY DISEASE, UNSPECIFIED Priority: Medium Current Visit: Yes Qualifiers: COPD type: unspecified COPD Qualified Code(s): J44.9 - Chronic obstructive pulmonary disease, unspecified (11) Sleep apnea SNOMED Code(s): 29453382 Code(s): G47.30 - SLEEP APNEA, UNSPECIFIED Priority: Medium Current Visit : Yes Qualifiers: Sleep apnea type: unspecified type Qualified Code(s): G47.30 - Sleep apnea , unspecified (12) GERD (gastroesophageal reflux disease) SNOMED Code(s): 241449873 Code(s): K21.9 - GASTRO-ESOPHAGEAL REFLUX DISEASE WITHOUT ESOPHAGITIS Priority: Medium Current Visit: No Qualifiers: Esophagitis presence: esophagitis presence not specified Qualified Code(s) : K21.9 - Gastro-esophageal reflux disease without esophagitis (13) BPH (benign prostatic hyperplasia) SNOMED Code(s): 800605704 Code(s): N40.0 - BENIGN PROSTATIC HYPERPLASIA WITHOUT LOWER URINRY TRACT SYMP Priority: Medium Current Visit: Yes Qualifiers: Lower urinary tract symptom presence: unspecified whether lower urinary tract symptoms present Qualified Code(s): N40.0 - Benign prostatic hyperplasia without lower urinary tract symptoms (14) History of bladder cancer SNOMED Code(s): 245748507 Code(s): Z85.51 - PERSONAL HISTORY OF MALIGNANT NEOPLASM OF BLADDER Priority: Medium Current Visit: No (15) Parkinson disease SNOMED Code(s): 79475704 Code(s): G20 - PARKINSON'S DISEASE Priority: Medium Current Visit: No (16) Anxiety SNOMED Code(s): 10838190 Code(s): F41.9 - ANXIETY DISORDER, UNSPECIFIED Priority: Medium Current Visit: No (17) History of Clostridium difficile infection SNOMED Code(s): 054108416, 536993772 Code(s): Z86.19 - PERSONAL HISTORY OF OTHER INFECTIOUS AND PARASITIC DISEASES Priority: Low Current Visit: No Problem List Initiated/Reviewed/Updated: Yes My Orders Last 24 Hours: My Active Orders 02/04/18 11:17 Consult to Respiratory Therapy [Respiratory Care Assess and Treatment] [CONS] Routine 02/04/18 11:28 Levalbuterol HCl [Xopenex] 1.25 mg NEB QIDRT PRN 02/04/18 11:29 RT Aerosol Therapy [RC] ASDIRECTED 02/04/18 12:14 Midodrine 5 mg PO ONETIME ONE Plan: I/P: Acute: S/P left total knee arthroplasty - post-operative day 0 -DVT prophylaxis and pain management per primary care team -PT/OT -IS/RT -Monitor oxygen saturation -Titrate oxygen as needed -Monitor labs -Pre-operative Hgb was 16.1, 14.0 post-procedure -Pre-operative GFR was 73 -A1C 5.6 Osteoarthritis of Left knee -Pain management per primary care team Post-operative hypotension, improving -Denies any symptoms -BP 80's/40's -250mL fluid bolus x2 -IV fluids as ordered, caution with heart failure history -5mg Midodrine -BP QHr Hypoxia, improving -Reportedly saturations were 94 on room air pre-operative -Hx/o COPD, SONJA with CPAP use -On 4L oxygen via NC after surgery -Continuous pulse ox -Oxygen to maintain saturations >90 -CPAP when sleeping -RT consult/IS as above -Xopenex QID PRN (Became quite tachycardic after albuterol) -Ipratropium as ordered PRN Chronic: Impaired vision CAD Heart failure (EF 70-75% with grade I diastolic dysfunction in November 2015) HLD HTN CT with 3 stents placed in 2004 COPD SONJA on CPAP GERD BPH bladder cancer Parkinson's disease anxiety hx/o C. diff infection Hx/o H. Pylori Dyspepsia gastritis melanoma bilateral LE claudication Plan: CM for discharge planning GI prophylaxis Home medications as indicated Other orders as listed above Routine AM labs He is a full code. His PCP is Dr. Monreal Of note: RT reports patients mask was quite dirty and does not fit well. Patient my benefit from new home mask and evaluation of fit. Thank you for allowing us to participate in the care of this patient!! Requesting Provider: Dr. Marroquin Date Consult Requested: 02/04/18 Reason for Consult: Post-operative medical management Patient History Reviewed: Yes Admission H&P Reviewed: Yes Time Spent (in minutes): 60
[2018-02-04] MEDS ORDERED: Ipratropium 0.02% 0.5 MG/2.5 ML Neb Soln NEB PRN (12:32)
[2018-02-04] MEDS: ceFAZolin 2 GM in Premix Bag 1 BAG IV SCH ×2 (13:52→23:09)
[2018-02-04] MEDS ORDERED: Lactated Ringers 1,000 ML IV SCH (17:15)
[2018-02-04] MEDS: Docusate Sodium 100 MG Cap PO SCH (20:35)
[2018-02-04] MEDS: Tamsulosin 0.4 MG Cap.ER PO SCH (20:35)
[2018-02-04] MEDS ORDERED: ClonazePAM 1 MG Tab PO SCH (21:00)
[2018-02-05] MEDS: ceFAZolin 2 GM in Premix Bag 1 BAG IV SCH (06:26)
--- NOTE | 2018-02-05 06:39 | PCM.CONSN ---
- General Info Date of Service: 02/05/18 Admission Dx/Problem (Free Text): Admission Diagnosis/Problem Admission Diagnosis/Problem Osteoarthritis of knee Subjective Update: In to see Phill. He is sitting in the chair. His grandson is at bedside. He denies any concerns or questions. No nursing concerns. Functional Status: Reports: Pain Controlled, Tolerating Diet, Ambulating, Urinating. Denies: New Symptoms - Review of Systems General: Reports: No Symptoms. Denies: Weakness, Fatigue, Malaise HEENT: Reports: No Symptoms Pulmonary: Reports: No Symptoms. Denies: Shortness of Breath, Cough Cardiovascular: Reports: No Symptoms. Denies: Chest Pain, Palpitations, Dyspnea on Exertion Gastrointestinal: Reports: No Symptoms. Denies: Abdominal Pain, Constipation, Diarrhea, Nausea, Vomiting Genitourinary: Reports: No Symptoms Musculoskeletal: Reports: Leg Pain Skin: Reports: No Symptoms Neurological: Reports: No Symptoms. Denies: Confusion, Numbness Psychiatric: Reports: No Symptoms - Patient Data Vitals - Most Recent: Last Vital Signs Temp 97.7 F 02/05/18 04:08 Pulse 85 02/05/18 04:08 Resp 16 02/05/18 04:08 BP 148/86 H 02/05/18 04:08 Pulse Ox 94 L 02/05/18 05:38 Weight - Most Recent: 205 lb I&O - Last 24 Hours: Intake & Output 02/04/18 02/04/18 02/05/18 14:59 22:59 06:59 Intake Total 760 1003 682 Output Total 275 250 Balance 760 728 432 Lab Results Last 24 Hours: Laboratory Results - last 24 hr 02/04/18 Range/Units 11:57 Hgb 14.0 (13.7-17.5) gm/L Hct 42.8 (40.1-51.0) % Med Orders - Current: Current Medications Aspirin (Ecotrin) 325 mg PO BID MORALES Bisacodyl (Dulcolax) 5 mg PO DAILY PRN PRN Reason: Constipation Carbidopa/Levodopa (Sinemet 25-100 Mg) 1 tab PO DAILY [facility] Clonazepam (Klonopin) 1 mg PO BEDTIME [facility] Last Admin: 02/04/18 20:35 Dose: 1 mg Clopidogrel Bisulfate (Plavix) 75 mg PO DAILY [facility] Docusate Sodium (Colace) 100 mg PO BID [facility] Last Admin: 02/04/18 20:35 Dose: 100 mg Finasteride (Proscar) 5 mg PO DAILY [facility] Cefazolin Sodium/Dextrose 2 gm (/ Premix) 50 mls @ 100 mls/hr IV Q8H [facility] Stop: 02/05/18 06:59 Last Admin: 02/05/18 06:26 Dose: 100 mls/hr Lactated Ringer's (Ringers, Lactated) 1,000 mls @ 35 mls/hr IV ASDIRECTED [facility] Last Admin: 02/04/18 18:52 Dose: 35 mls/hr Ipratropium [place] (Atrovent) 0.5 mg NEB Q6HRRT PRN PRN Reason: SOB/Wheezing Last Admin: 02/04/18 14:52 Dose: 0.5 mg Ketorolac Tromethamine (Toradol) 15 mg IVPUSH Q8H PRN PRN Reason: Pain Levalbuterol HCl (Xopenex) 1.25 mg NEB QIDRT PRN PRN Reason: SOB/Wheezing Last Admin: 02/04/18 14:30 Dose: 1.25 mg Magnesium Hydroxide (Milk Of Magnesia) 30 ml PO BID PRN PRN Reason: Constipation Metoprolol Succinate (Toprol Xl) 50 mg PO DAILY [facility] Morphine Sulfate (Morphine) 2 mg IVPUSH Q2H PRN PRN Reason: Breakthrough Pain Multivitamins (Thera) 1 each PO DAILY [facility] Naloxone HCl (Narcan) 0.1 mg IVPUSH Q5M PRN PRN Reason: Oversedation Nitroglycerin (Nitrostat) 0.4 mg SL ASDIRECTED PRN PRN Reason: Chest Pain Ondansetron HCl (Zofran) 4 mg IVPUSH Q6H PRN PRN Reason: Nausea/Vomiting Oxybutynin Chloride (Oxybutynin Er) 5 mg PO DAILY [facility] Oxycodone/Acetaminophen (Percocet 325-5 Mg) 1 - 2 tab PO Q4H PRN PRN Reason: Pain Pravastatin Sodium (80 Mg) 0 each PO DAILY [facility] Selegiline Hcl 2.5 (Mg) 0 each PO DAILY [facility] Senna (Senna) 8.6 mg PO BID PRN PRN Reason: Constipation Tamsulosin HCl (Flomax) 0.4 mg PO BID [facility] Last Admin: 02/04/18 20:35 Dose: 0.4 mg Discontinued Medications Acetaminophen (Tylenol) 975 mg PO ONETIME MORALES Stop: 02/04/18 12:00 Last Admin: 02/04/18 06:24 Dose: 975 mg Albuterol (Proventil Neb Soln) 2.5 mg NEB ONETIME ONE Stop: 02/04/18 06:34 Last Admin: 02/04/18 06:49 Dose: 2.5 mg Albuterol (Proventil Neb Soln) Confirm Administered Dose 2.5 mg .ROUTE .STK-MED ONE Stop: 02/04/18 06:39 Last Admin: 02/04/18 06:49 Dose: Not Given Albuterol (Proventil Neb Soln) 2.5 mg NEB ONETIME PRN PRN Reason: improve ventilation Stop: 02/04/18 10:00 Last Admin: 02/04/18 09:31 Dose: 2.5 mg Bupivacaine HCl (Sensorcaine-Mpf 0.75%) Confirm Administered Dose 30 ml .ROUTE .STK-MED ONE Stop: 02/04/18 06:14 Bupivacaine HCl (Marcaine 0.25%) Confirm Administered Dose 30 ml .ROUTE .STK- MED ONE Stop: 02/04/18 06:16 Last Admin: 02/04/18 08:13 Dose: 30 ml Cefazolin Sodium (Ancef) Confirm Administered Dose 2 gm .ROUTE .STK-MED ONE Stop: 02/04/18 06:14 Last Admin: 02/04/18 08:11 Dose: 2 gm Cefazolin Sodium (Ancef) Confirm Administered Dose 2 gm .ROUTE .STK-MED ONE Stop: 02/04/18 06:15 Morphine Sulfate 8 mg/Epinephrine HCl 0.3 mg/Cefuroxime Sodium 750 mg/Ketorolac Tromethamine 30 mg/Sodium Chloride 27.9 ml 0 mg .XX ONETIME ONE Stop: 02/04/18 07:31 Last Admin: 02/04/18 08:12 Dose: 788.3 mg Dexamethasone (Dexamethasone) Confirm Administered Dose 4 mg .ROUTE .STK-MED ONE Stop: 02/04/18 07:00 Dexamethasone (Dexamethasone) Confirm Administered Dose 4 mg .ROUTE .STK-MED ONE Stop: 02/04/18 07:00 Diphenhydramine HCl (Benadryl) 25 mg IVPUSH Q6H PRN PRN Reason: pruritis Stop: 02/04/18 10:00 Ephedrine Sulfate (Ephedrine Sulfate) 5 mg IVPUSH ASDIRECTED PRN PRN Reason: Hypotension Stop: 02/04/18 10:00 Ephedrine Sulfate (Ephedrine In Ns) Confirm Administered Dose 25 mg .ROUTE .STK- MED ONE Stop: 02/04/18 08:27 Epinephrine HCl (Adrenalin) Confirm Administered Dose 1 mg .ROUTE .STK-MED ONE Stop: 02/04/18 05:59 Fentanyl (Sublimaze) Confirm Administered Dose 100 mcg .ROUTE .STK-MED ONE Stop: 02/04/18 06:15 Fentanyl (Sublimaze) Confirm Administered Dose 250 mcg .ROUTE .STK-MED ONE Stop: 02/04/18 06:58 Fentanyl (Sublimaze) 50 mcg IVPUSH Q5M PRN PRN Reason: Pain Stop: 02/04/18 10:00 Haloperidol Lactate (Haldol) 1 mg IVPUSH ONETIME PRN PRN Reason: PERSISTENT NAUSEA Stop: 02/04/18 10:00 Hydromorphone HCl (Dilaudid) Confirm Administered Dose 0.5 mg .ROUTE .STK-MED ONE Stop: 02/04/18 07:15 Hydromorphone HCl (Dilaudid) Confirm Administered Dose 0.5 mg .ROUTE .STK-MED ONE Stop: 02/04/18 07:25 Hydromorphone HCl (Dilaudid) 0.5 mg IVPUSH ONETIME PRN PRN Reason: Pain Stop: 02/04/18 10:00 Lactated Ringer's (Ringers, Lactated) 1,000 mls @ 125 mls/hr IV ASDIRECTED MORALES Stop: 02/04/18 23:00 Last Admin: 02/04/18 06:30 Dose: 125 mls/hr Lidocaine HCl (Xylocaine-Mpf 1%) Confirm Administered Dose 0 mls @ as directed .ROUTE .STK-MED ONE Stop: 02/04/18 06:14 Lactated Ringer's (Ringers, Lactated) Confirm Administered Dose 1,000 mls @ as directed .ROUTE .STK-MED ONE Stop: 02/04/18 06:14 Lidocaine HCl (Xylocaine-Mpf 1%) Confirm Administered Dose 2 mls @ as directed .ROUTE .STK-MED ONE Stop: 02/04/18 07:01 Lidocaine HCl (Xylocaine-Mpf 1%) Confirm Administered Dose 2 mls @ as directed .ROUTE .STK-MED ONE Stop: 02/04/18 07:01 Phenylephrine HCl 1 mg/ Sodium (Chloride) 10.1 mls @ 1 mls/sec IV TITRATE MORALES; Protocol Stop: 02/04/18 10:00 Lidocaine HCl (Xylocaine-Mpf 1%) Confirm Administered Dose 2 mls @ as directed .ROUTE .STK-MED ONE Stop: 02/04/18 08:10 Lidocaine HCl (Xylocaine-Mpf 1%) Confirm Administered Dose 2 mls @ as directed .ROUTE .STK-MED ONE Stop: 02/04/18 08:10 Lactated Ringer's (Ringers, Lactated) 500 mls @ 999 mls/hr IV .BOLUS ONE Stop: 02/04/18 11:55 Last Admin: 02/04/18 13:47 Dose: Not Given Lactated Ringer's (Ringers, Lactated) 250 mls @ 999 mls/hr IV .BOLUS ONE Stop: 02/04/18 11:51 Last Admin: 02/04/18 11:41 Dose: 999 mls/hr Iodine (Iodine 2% Mild Tincture) Confirm Administered Dose 30 ml .ROUTE .STK- MED ONE Stop: 02/04/18 06:16 Lidocaine/Sodium Bicarbonate (Buffered Lidocaine 1% In Ns 8.4%) 0.25 ml IDERM ONETIME PRN PRN Reason: Prior to IV Start Stop: 02/04/18 18:00 Midazolam HCl (Versed 1 Mg/Ml) Confirm Administered Dose 2 mg .ROUTE .STK-MED ONE Stop: 02/04/18 06:15 Midodrine (Midodrine) 5 mg PO ONETIME ONE Stop: 02/04/18 12:21 Last Admin: 02/04/18 12:22 Dose: 5 mg Ondansetron HCl (Zofran) Confirm Administered Dose 4 mg .ROUTE .STK-MED ONE Stop: 02/04/18 06:14 Ondansetron HCl (Zofran) 4 mg IVPUSH ONETIME PRN PRN Reason: Nausea/Vomiting Stop: 02/04/18 10:00 Oxycodone HCl (Oxycontin) 10 mg PO ONETIME [facility] Stop: 02/04/18 12:00 Last Admin: 02/04/18 06:24 Dose: 10 mg Phenylephrine HCl (Phenylephrine In Ns 100 Mcg/Ml) Confirm Administered Dose 1 mg .ROUTE .STK-MED ONE Stop: 02/04/18 06:14 Pregabalin (Lyrica) 50 mg PO ONETIME [facility] Stop: 02/04/18 12:00 Last Admin: 02/04/18 06:24 Dose: 50 mg Propofol (Diprivan 20 Ml) Confirm Administered Dose 400 mg .ROUTE .STK-MED ONE Stop: 02/04/18 06:15 Propofol (Diprivan 20 Ml) Confirm Administered Dose 200 mg .ROUTE .STK-MED ONE Stop: 02/04/18 06:58 Rocuronium [place] (Zemuron) Confirm Administered Dose 50 mg .ROUTE .STK-MED ONE Stop: 02/04/18 06:57 Ropivacaine (Naropin 0.5%) Confirm Administered Dose 30 ml .ROUTE .STK-MED ONE Stop: 02/04/18 05:59 Sodium Chloride (Saline Flush) 10 ml FLUSH ASDIRECTED PRN PRN Reason: Keep Vein Open Stop: 02/04/18 18:00 Succinylcholine Chloride (Succinylcholine In Ns Pf) Confirm Administered Dose 100 mg .ROUTE .STK-MED ONE Stop: 02/04/18 06:57 Tranexamic Acid (Cyklokapron) Confirm Administered Dose 1,000 mg .ROUTE .STK- MED ONE Stop: 02/04/18 06:15 Last Admin: 02/04/18 08:26 Dose: 1,000 mg Vancomycin HCl (Vancomycin) Confirm Administered Dose 1 gm .ROUTE .STK-MED ONE Stop: 02/04/18 06:15 Last Admin: 02/04/18 08:16 Dose: 1 gm - Exam Quality Assessment: Supplemental Oxygen, DVT Prophylaxis General: Alert, Oriented, Cooperative, No Acute Distress HEENT: Pupils Equal, Pupils Reactive, EOMI, Mucous Membr. Moist/[place] Neck: Supple, Trachea Midline Lungs: Normal Respiratory Effort, Decreased Breath Sounds Cardiovascular: Regular Rate, Regular Rhythm GI/Abdominal Exam: Normal Bowel Sounds, Soft, Non-Tender, No Distention, No Abnormal Bruit (Male) Exam: Deferred Back Exam: Normal Inspection, Full Range of Motion Extremities: No Pedal Edema, Normal Capillary Refill, Leg Pain, Limited Range of Motion, Other (MARIXA bandage on left leg with cooling pack in place. ) Peripheral Pulses: 1+: Posterior Tibial (L), Posterior Tibial (R), Dorsalis Pedis (L), Dorsalis Pedis (R), 2+: Radial (L), Radial (R) Skin: Warm, Dry, Intact Wound/Incisions: Dressing Dry and Intact, No Drainage Neurological: No New Focal Deficit Psy/Mental Status: Alert, Normal Affect, Normal Mood Consult PN Assessment/Plan POD#: 1 Procedures: Procedures ASSAY OF MAGNESIUM (02/04/17) ASSAY OF NATRIURETIC PEPTIDE (02/04/17) ASSAY OF TROPONIN QUANT (02/04/17) BLOOD CULTURE FOR BACTERIA (10/03/16) C-REACTIVE PROTEIN (02/04/17) CHEST X-RAY 1 VIEW FRONTAL (02/04/17) CHEST X-RAY 2VW FRONTAL&LATL (02/23/15) COMPLETE CBC W/AUTO DIFF WBC (02/04/17) COMPREHEN METABOLIC PANEL (02/04/17) CREATINE MB FRACTION (02/04/17) CT ABD & PELV W/CONTRAST (08/29/14) ELECTROCARDIOGRAM TRACING (02/04/17) EMERGENCY DEPT VISIT (04/21/17) EMERGENCY DEPT VISIT (02/04/17) EMERGENCY DEPT VISIT (02/23/15) EMERGENCY DEPT VISIT (10/26/13) EVALUATE PT USE OF INHALER (02/04/17) HYDRATE IV INFUSION ADD-ON (02/04/17) INFLUENZA ASSAY W/OPTIC (10/03/16) PROTHROMBIN TIME (02/04/17) ROUTINE VENIPUNCTURE (02/04/17) RPR S/N/AX/GEN/TRK7.6-12.5CM (04/21/17) THER/PROPH/DIAG INJ IV PUSH (10/03/16) THER/PROPH/DIAG IV INF ADDON (02/04/17) THER/PROPH/DIAG IV INF INIT (02/04/17) THROMBOPLASTIN TIME PARTIAL (02/23/15) TX/PRO/DX INJ NEW DRUG ADDON (08/29/14) URINALYSIS AUTO W/SCOPE (10/03/16) X-RAY EXAM OF FOOT (10/26/13) X-RAY EXAM OF HAND (02/23/15) (1) S/P total knee arthroplasty SNOMED Code(s): 7056779461039, 933556540, 8029589957082 Code(s): Z96.659 - PRESENCE OF UNSPECIFIED ARTIFICIAL KNEE JOINT Priority: High Current Visit: Yes Qualifiers: Laterality: left Qualified Code(s): Z96.652 - Presence of left artificial knee joint (2) Hypotension SNOMED Code(s): 74521930 Code(s): I95.9 - HYPOTENSION, UNSPECIFIED Priority: High Current Visit: Yes Qualifiers: Hypotension type: postprocedural hypotension Qualified Code(s): I95.81 - Postprocedural hypotension (3) Hypoxia SNOMED Code(s): 693917936 Code(s): R09.02 - HYPOXEMIA Priority: High Current Visit: Yes (4) Osteoarthritis SNOMED Code(s): 882485747 Code(s): M19.90 - UNSPECIFIED OSTEOARTHRITIS, UNSPECIFIED SITE Priority: High Current Visit: Yes Qualifiers: Osteoarthritis location: knee Osteoarthritis type: primary Laterality: left Qualified Code(s): M17.12 - Unilateral primary osteoarthritis, left knee (5) CAD (coronary artery disease) SNOMED Code(s): 71954682 Code(s): I25.10 - ATHSCL HEART DISEASE OF [place] CORONARY ARTERY W/O ANG PCTRS Priority: Medium Current Visit: No Qualifiers: Coronary Disease-Associated Artery/Lesion type: unspecified vessel or lesion type [place] vs. transplanted heart: unspecified whether [place] or transplanted heart Associated angina: angina presence unspecified Qualified Code(s): I25.10 - Atherosclerotic heart disease of [place] coronary artery without angina pectoris (6) Heart failure SNOMED Code(s): 34492465 Code(s): I50.9 - HEART FAILURE, UNSPECIFIED Priority: Medium Current Visit: Yes Qualifiers: Heart failure type: unspecified Heart failure chronicity: unspecified Qualified Code(s): I50.9 - Heart failure, unspecified (7) HLD (hyperlipidemia) SNOMED Code(s): 79261225 Code(s): E78.5 - HYPERLIPIDEMIA, UNSPECIFIED Priority: Medium Current Visit: No Qualifiers: Hyperlipidemia type: unspecified Qualified Code(s): E78.5 - Hyperlipidemia , unspecified (8) HTN (hypertension) SNOMED Code(s): 51039154 Code(s): I10 - ESSENTIAL (PRIMARY) HYPERTENSION Priority: Medium Current Visit: No Qualifiers: Hypertension type: unspecified Qualified Code(s): I10 - Essential (primary ) hypertension (9) History of myocardial infarction SNOMED Code(s): 571504479 Code(s): I25.2 - OLD MYOCARDIAL INFARCTION Priority: Medium Current Visit : No (10) COPD (chronic obstructive pulmonary disease) SNOMED Code(s): 43756898 Code(s): J44.9 - CHRONIC OBSTRUCTIVE PULMONARY DISEASE, UNSPECIFIED Priority: Medium Current Visit: Yes Qualifiers: COPD type: unspecified COPD Qualified Code(s): J44.9 - Chronic obstructive pulmonary disease, unspecified (11) Sleep apnea SNOMED Code(s): 61474105 Code(s): G47.30 - SLEEP APNEA, UNSPECIFIED Priority: Medium Current Visit : Yes Qualifiers: Sleep apnea type: unspecified type Qualified Code(s): G47.30 - Sleep apnea , unspecified (12) GERD (gastroesophageal reflux disease) SNOMED Code(s): 556654914 Code(s): K21.9 - GASTRO-ESOPHAGEAL REFLUX DISEASE WITHOUT ESOPHAGITIS Priority: Medium Current Visit: No Qualifiers: Esophagitis presence: esophagitis presence not specified Qualified Code(s) : K21.9 - Gastro-esophageal reflux disease without esophagitis (13) BPH (benign prostatic hyperplasia) SNOMED Code(s): 370406712 Code(s): N40.0 - BENIGN PROSTATIC HYPERPLASIA WITHOUT LOWER URINRY TRACT SYMP Priority: Medium Current Visit: Yes Qualifiers: Lower urinary tract symptom presence: unspecified whether lower urinary tract symptoms present Qualified Code(s): N40.0 - Benign prostatic hyperplasia without lower urinary tract symptoms (14) History of bladder cancer SNOMED Code(s): 593066970 Code(s): Z85.51 - PERSONAL HISTORY OF MALIGNANT NEOPLASM OF BLADDER Priority: Medium Current Visit: No (15) Parkinson disease SNOMED Code(s): 22614317 Code(s): G20 - PARKINSON'S DISEASE Priority: Medium Current Visit: No (16) Anxiety SNOMED Code(s): 50356214 Code(s): F41.9 - ANXIETY DISORDER, UNSPECIFIED Priority: Medium Current Visit: No (17) History of Clostridium difficile infection SNOMED Code(s): 030445709, 491207911 Code(s): Z86.19 - PERSONAL HISTORY OF OTHER INFECTIOUS AND PARASITIC DISEASES Priority: Low Current Visit: No Problem List Initiated/Reviewed/Updated: Yes My Orders Last 24 Hours: My Active Orders 02/04/18 11:17 Consult to Respiratory Therapy [Respiratory Care Assess and Treatment] [CONS] Routine 02/04/18 11:28 Levalbuterol HCl [Xopenex] 1.25 mg NEB QIDRT PRN 02/04/18 12:32 RT Post Treatment Assessment [RC] Click to Edit RT Pre-Treatment Assessment [RC] Click to Edit Ipratropium [Atrovent] 0.5 mg NEB Q6HRRT PRN 02/04/18 12:55 CPAP [RESPCARE] Routine Plan: I/P: Acute: S/P left total knee arthroplasty - post-operative day 1 -DVT prophylaxis and pain management per primary care team -PT/OT -IS/RT -Monitor oxygen saturation -Titrate oxygen as needed -Monitor labs -Pre-operative Hgb was 16.1, 14.0 post-procedure, Now 12.8 -Pre-operative GFR was 73, Now 54 -A1C 5.6 Osteoarthritis of Left knee -Pain management per primary care team Resolved: Post-operative hypotension -Denies any symptoms -BP 80's/40's -250mL fluid bolus x2 -IV fluids as ordered, caution with heart failure history -5mg Midodrine -BP QHr Hypoxia -Reportedly saturations were 94 on room air pre-operative -Hx/o COPD, SONJA with CPAP use -On 4L oxygen via NC after surgery--> weaned off -Continuous pulse ox -Oxygen to maintain saturations >90 (Saturations in 91-93 range now) -CPAP when sleeping -RT consult/IS as above -> encouraged to continue IS at home -Xopenex QID PRN (Became quite tachycardic after albuterol) -Ipratropium as ordered PRN Chronic: Impaired vision CAD Heart failure (EF 70-75% with grade I diastolic dysfunction in November 2015) HLD HTN [place] with 3 stents placed in 2004 COPD SONJA on CPAP GERD BPH bladder cancer Parkinson's disease anxiety hx/o C. diff infection Hx/o H. Pylori Dyspepsia gastritis melanoma bilateral LE claudication Plan: CM for discharge planning GI prophylaxis Home medications as indicated Other orders as listed above Routine AM labs He is a full code. His PCP is Dr. Monreal Of note: RT reports patients mask was quite dirty and does not fit well. Patient my benefit from new home mask and evaluation of fit. Thank you for allowing us to participate in the care of this patient!! Overall Phill is doing quite well. He did have an episode of hypoxia and hypotension after surgery yesterday, however that improved overnight and today. He has been weaned off oxygen. He was instructed to wear his home CPAP when napping/sleeping and continue to utilize his IS until he is more ambulatory. His vital signs and labs are stable. He has been doing well with therapy. He has urinated and been ambulating. His pain is controlled well. From a hospitalist standpoint he is cleared for discharge pending primary team approval.
--- NOTE | 2018-02-05 07:33 | PCM.SURGPN ---
- General Info Date of Service: 02/05/18 POD#: 1 Functional Status: Reports: Pain Controlled, Tolerating Diet, Ambulating, Urinating, Incentive Spirometry - Patient Data Vitals - Most Recent: Last Vital Signs Temp 97.7 F 02/05/18 04:08 Pulse 85 02/05/18 04:08 Resp 16 02/05/18 04:08 BP 148/86 H 02/05/18 04:08 Pulse Ox 94 L 02/05/18 05:38 Weight - Most Recent: 205 lb I&O - Last 24 Hours: Intake & Output 02/04/18 02/05/18 02/05/18 22:59 06:59 14:59 Intake Total 1003 682 Output Total 275 250 Balance 728 432 Lab Results Last 24 Hrs: Laboratory Results - last 24 hr 02/04/18 02/05/18 02/05/18 Range/Units 11:57 06:12 06:12 WBC 12.02 H (4.23-9.07) K/mm3 RBC 4.50 L (4.63-6.08) M/mm3 Hgb 14.0 12.8 L (13.7-17.5) gm/L Hct 42.8 39.0 L (40.1-51.0) % MCV 86.7 (79.0-92.2) fl MCH 28.4 (25.7-32.2) pg MCHC 32.8 (32.2-35.5) g/dl RDW Std Deviation 43.5 (35.1-43.9) fL Plt Count 195 (163-337) K/mm3 MPV 9.2 L (9.4-12.3) fl Sodium 138 (136-145) mEq/L Potassium 4.6 (3.5-5.1) mEq/L Chloride 103 (98-107) mEq/L Carbon Dioxide 30 (21-32) mEq/L Anion Gap 9.6 (5-15) BUN 21 H (7-18) mg/dL Creatinine 1.3 (0.7-1.3) mg/dL Est Cr Clr Drug Dosing 44.68 mL/min Estimated GFR (MDRD) 54 (>60) mL/min BUN/Creatinine Ratio 16.2 (14-18) Glucose 112 (83-115) mg/dL Calcium 8.9 (8.5-10.1) mg/dL Total Bilirubin 0.4 (0.2-1.0) mg/dL AST 36 (15-37) U/L ALT 27 (16-63) U/L Alkaline Phosphatase 53 (46-116) U/L Total Protein 6.7 (6.4-8.2) g/dl Albumin 3.4 (3.4-5.0) g/dl Globulin 3.3 gm/dL Albumin/Globulin Ratio 1.0 (1-2) Med Orders - Current: Current Medications Aspirin (Ecotrin) 325 mg PO BID [facility] Bisacodyl (Dulcolax) 5 mg PO DAILY PRN PRN Reason: Constipation Carbidopa/Levodopa (Sinemet 25-100 Mg) 1 tab PO DAILY [facility] Clonazepam (Klonopin) 1 mg PO BEDTIME [facility] Last Admin: 02/04/18 20:35 Dose: 1 mg Clopidogrel Bisulfate (Plavix) 75 mg PO DAILY [facility] Docusate Sodium (Colace) 100 mg PO BID [facility] Last Admin: 02/04/18 20:35 Dose: 100 mg Finasteride (Proscar) 5 mg PO DAILY [facility] Ipratropium Manderson (Atrovent) 0.5 mg NEB Q6HRRT PRN PRN Reason: SOB/Wheezing Last Admin: 02/04/18 14:52 Dose: 0.5 mg Ketorolac Tromethamine (Toradol) 15 mg IVPUSH Q8H PRN PRN Reason: Pain Last Admin: 02/05/18 06:28 Dose: 15 mg Levalbuterol HCl (Xopenex) 1.25 mg NEB QIDRT PRN PRN Reason: SOB/Wheezing Last Admin: 02/04/18 14:30 Dose: 1.25 mg Magnesium Hydroxide (Milk Of Magnesia) 30 ml PO BID PRN PRN Reason: Constipation Metoprolol Succinate (Toprol Xl) 50 mg PO DAILY [facility] Morphine Sulfate (Morphine) 2 mg IVPUSH Q2H PRN PRN Reason: Breakthrough Pain Multivitamins (Thera) 1 each PO DAILY [facility] Naloxone HCl (Narcan) 0.1 mg IVPUSH Q5M PRN PRN Reason: Oversedation Nitroglycerin (Nitrostat) 0.4 mg SL ASDIRECTED PRN PRN Reason: Chest Pain Ondansetron HCl (Zofran) 4 mg IVPUSH Q6H PRN PRN Reason: Nausea/Vomiting Oxybutynin Chloride (Oxybutynin Er) 5 mg PO DAILY [facility] Oxycodone/Acetaminophen (Percocet 325-5 Mg) 1 - 2 tab PO Q4H PRN PRN Reason: Pain Pravastatin Sodium (80 Mg) 0 each PO DAILY [facility] Selegiline Hcl 2.5 (Mg) 0 each PO DAILY [facility] Senna (Senna) 8.6 mg PO BID PRN PRN Reason: Constipation Tamsulosin HCl (Flomax) 0.4 mg PO BID [facility] Last Admin: 02/04/18 20:35 Dose: 0.4 mg Discontinued Medications Acetaminophen (Tylenol) 975 mg PO ONETIME [facility] Stop: 02/04/18 12:00 Last Admin: 02/04/18 06:24 Dose: 975 mg Albuterol (Proventil Neb Soln) 2.5 mg NEB ONETIME ONE Stop: 02/04/18 06:34 Last Admin: 02/04/18 06:49 Dose: 2.5 mg Albuterol (Proventil Neb Soln) Confirm Administered Dose 2.5 mg .ROUTE .STK-MED ONE Stop: 02/04/18 06:39 Last Admin: 02/04/18 06:49 Dose: Not Given Albuterol (Proventil Neb Soln) 2.5 mg NEB ONETIME PRN PRN Reason: improve ventilation Stop: 02/04/18 10:00 Last Admin: 02/04/18 09:31 Dose: 2.5 mg Bupivacaine HCl (Sensorcaine-Mpf 0.75%) Confirm Administered Dose 30 ml .ROUTE .STK-MED ONE Stop: 02/04/18 06:14 Bupivacaine HCl (Marcaine 0.25%) Confirm Administered Dose 30 ml .ROUTE .STK- MED ONE Stop: 02/04/18 06:16 Last Admin: 02/04/18 08:13 Dose: 30 ml Cefazolin Sodium (Ancef) Confirm Administered Dose 2 gm .ROUTE .STK-MED ONE Stop: 02/04/18 06:14 Last Admin: 02/04/18 08:11 Dose: 2 gm Cefazolin Sodium (Ancef) Confirm Administered Dose 2 gm .ROUTE .STK-MED ONE Stop: 02/04/18 06:15 Morphine Sulfate 8 mg/Epinephrine HCl 0.3 mg/Cefuroxime Sodium 750 mg/Ketorolac Tromethamine 30 mg/Sodium Chloride 27.9 ml 0 mg .XX ONETIME ONE Stop: 02/04/18 07:31 Last Admin: 02/04/18 08:12 Dose: 788.3 mg Dexamethasone (Dexamethasone) Confirm Administered Dose 4 mg .ROUTE .STK-MED ONE Stop: 02/04/18 07:00 Dexamethasone (Dexamethasone) Confirm Administered Dose 4 mg .ROUTE .STK-MED ONE Stop: 02/04/18 07:00 Diphenhydramine HCl (Benadryl) 25 mg IVPUSH Q6H PRN PRN Reason: pruritis Stop: 02/04/18 10:00 Ephedrine Sulfate (Ephedrine Sulfate) 5 mg IVPUSH ASDIRECTED PRN PRN Reason: Hypotension Stop: 02/04/18 10:00 Ephedrine Sulfate (Ephedrine In Ns) Confirm Administered Dose 25 mg .ROUTE .STK- MED ONE Stop: 02/04/18 08:27 Epinephrine HCl (Adrenalin) Confirm Administered Dose 1 mg .ROUTE .STK-MED ONE Stop: 02/04/18 05:59 Fentanyl (Sublimaze) Confirm Administered Dose 100 mcg .ROUTE .STK-MED ONE Stop: 02/04/18 06:15 Fentanyl (Sublimaze) Confirm Administered Dose 250 mcg .ROUTE .STK-MED ONE Stop: 02/04/18 06:58 Fentanyl (Sublimaze) 50 mcg IVPUSH Q5M PRN PRN Reason: Pain Stop: 02/04/18 10:00 Haloperidol Lactate (Haldol) 1 mg IVPUSH ONETIME PRN PRN Reason: PERSISTENT NAUSEA Stop: 02/04/18 10:00 Hydromorphone HCl (Dilaudid) Confirm Administered Dose 0.5 mg .ROUTE .STK-MED ONE Stop: 02/04/18 07:15 Hydromorphone HCl (Dilaudid) Confirm Administered Dose 0.5 mg .ROUTE .STK-MED ONE Stop: 02/04/18 07:25 Hydromorphone HCl (Dilaudid) 0.5 mg IVPUSH ONETIME PRN PRN Reason: Pain Stop: 02/04/18 10:00 Lactated Ringer's (Ringers, Lactated) 1,000 mls @ 125 mls/hr IV ASDIRECTED [facility] Stop: 02/04/18 23:00 Last Admin: 02/04/18 06:30 Dose: 125 mls/hr Lidocaine HCl (Xylocaine-Mpf 1%) Confirm Administered Dose 0 mls @ as directed .ROUTE .STK-MED ONE Stop: 02/04/18 06:14 Lactated Ringer's (Ringers, Lactated) Confirm Administered Dose 1,000 mls @ as directed .ROUTE .K-MED ONE Stop: 02/04/18 06:14 Cefazolin Sodium/Dextrose 2 gm (/ Premix) 50 mls @ 100 mls/hr IV Q8H [facility] Stop: 02/05/18 06:59 Last Admin: 02/05/18 06:26 Dose: 100 mls/hr Lidocaine HCl (Xylocaine-Mpf 1%) Confirm Administered Dose 2 mls @ as directed .ROUTE .K-MED ONE Stop: 02/04/18 07:01 Lidocaine HCl (Xylocaine-Mpf 1%) Confirm Administered Dose 2 mls @ as directed .ROUTE .[facility]-MED ONE Stop: 02/04/18 07:01 Phenylephrine HCl 1 mg/ Sodium (Chloride) 10.1 mls @ 1 mls/sec IV TITRATE [facility]; Protocol Stop: 02/04/18 10:00 Lidocaine HCl (Xylocaine-Mpf 1%) Confirm Administered Dose 2 mls @ as directed .ROUTE .[facility]-MED ONE Stop: 02/04/18 08:10 Lidocaine HCl (Xylocaine-Mpf 1%) Confirm Administered Dose 2 mls @ as directed .ROUTE .[facility]-MED ONE Stop: 02/04/18 08:10 Lactated Ringer's (Ringers, Lactated) 500 mls @ 999 mls/hr IV .BOLUS ONE Stop: 02/04/18 11:55 Last Admin: 02/04/18 13:47 Dose: Not Given Lactated Ringer's (Ringers, Lactated) 250 mls @ 999 mls/hr IV .BOLUS ONE Stop: 02/04/18 11:51 Last Admin: 02/04/18 11:41 Dose: 999 mls/hr Lactated Ringer's (Ringers, Lactated) 1,000 mls @ 35 mls/hr IV ASDIRECTED [facility] Last Admin: 02/04/18 18:52 Dose: 35 mls/hr Iodine (Iodine 2% Mild Tincture) Confirm Administered Dose 30 ml .ROUTE .STK- MED ONE Stop: 02/04/18 06:16 Lidocaine/Sodium Bicarbonate (Buffered Lidocaine 1% In Ns 8.4%) 0.25 ml IDERM ONETIME PRN PRN Reason: Prior to IV Start Stop: 02/04/18 18:00 Midazolam HCl (Versed 1 Mg/Ml) Confirm Administered Dose 2 mg .ROUTE .STK-MED ONE Stop: 02/04/18 06:15 Midodrine (Midodrine) 5 mg PO ONETIME ONE Stop: 02/04/18 12:21 Last Admin: 02/04/18 12:22 Dose: 5 mg Ondansetron HCl (Zofran) Confirm Administered Dose 4 mg .ROUTE .STK-MED ONE Stop: 02/04/18 06:14 Ondansetron HCl (Zofran) 4 mg IVPUSH ONETIME PRN PRN Reason: Nausea/Vomiting Stop: 02/04/18 10:00 Oxycodone HCl (Oxycontin) 10 mg PO ONETIME [facility] Stop: 02/04/18 12:00 Last Admin: 02/04/18 06:24 Dose: 10 mg Phenylephrine HCl (Phenylephrine In Ns 100 Mcg/Ml) Confirm Administered Dose 1 mg .ROUTE .STK-MED ONE Stop: 02/04/18 06:14 Pregabalin (Lyrica) 50 mg PO ONETIME [facility] Stop: 02/04/18 12:00 Last Admin: 02/04/18 06:24 Dose: 50 mg Propofol (Diprivan 20 Ml) Confirm Administered Dose 400 mg .ROUTE .STK-MED ONE Stop: 02/04/18 06:15 Propofol (Diprivan 20 Ml) Confirm Administered Dose 200 mg .ROUTE .STK-MED ONE Stop: 02/04/18 06:58 Rocuronium Manderson (Zemuron) Confirm Administered Dose 50 mg .ROUTE .STK-MED ONE Stop: 02/04/18 06:57 Ropivacaine (Naropin 0.5%) Confirm Administered Dose 30 ml .ROUTE .STK-MED ONE Stop: 02/04/18 05:59 Sodium Chloride (Saline Flush) 10 ml FLUSH ASDIRECTED PRN PRN Reason: Keep Vein Open Stop: 02/04/18 18:00 Succinylcholine Chloride (Succinylcholine In Ns Pf) Confirm Administered Dose 100 mg .ROUTE .STK-MED ONE Stop: 02/04/18 06:57 Tranexamic Acid (Cyklokapron) Confirm Administered Dose 1,000 mg .ROUTE .STK- MED ONE Stop: 02/04/18 06:15 Last Admin: 02/04/18 08:26 Dose: 1,000 mg Vancomycin HCl (Vancomycin) Confirm Administered Dose 1 gm .ROUTE .STK-MED ONE Stop: 02/04/18 06:15 Last Admin: 02/04/18 08:16 Dose: 1 gm - Exam Wound/Incisions: Dressing Dry and Intact General: Alert, Cooperative, No Acute Distress Lungs: Normal Respiratory Effort, Other (O2 per NC.) Extremities: Other (NVS intact for LLE. Nataliia's negative.) - Problem List Review Problem List Initiated/Reviewed/Updated: Yes - My Orders Last 24 Hours: Active Orders 24 hr Category Date Time Status Patient Status [ADT] Routine ADT 02/04/18 17:58 Active Cooling Warming Measures [RC] ASDIRECTED Care 02/04/18 07:32 Inactive Notify Provider [RC] 10,22 Care 02/04/18 07:32 Active Overnight Pulse Oximetry [RC] Click to Edit Care 02/04/18 11:01 Active RT Aerosol Therapy [RC] ASDIRECTED Care 02/04/18 06:33 Active RT Incentive Spirometry [RC] Q1HWA Care 02/04/18 06:43 Active RT Post Treatment Assessment [RC] Click to Edit Care 02/04/18 12:32 Active RT Pre-Treatment Assessment [RC] Click to Edit Care 02/04/18 12:32 Active Ready for Discharge [RC] PER UNIT ROUTINE Care 02/05/18 07:31 Ordered Urinary Catheter Removal [RC] Per Unit Routine Care 02/04/18 06:43 Inactive Vital Signs [RC] Q15M Care 02/04/18 07:32 Inactive Vital Signs [RC] Q4HR Care 02/04/18 06:45 Active Consult to Physician [CONS] Routine Cons 02/04/18 06:45 Active Consult to Respiratory Therapy [Respiratory Care Assess Cons 02/04/18 11:17 Active and Treatment] [CONS] Routine OT Evaluation and Treatment [CONS] Routine Cons 02/04/18 06:43 Active PT Evaluation and Treatment [CONS] Routine Cons 02/04/18 06:43 Active Regular Diet [DIET] Diet 02/04/18 Lunch Active Acetaminophen/oxyCODONE [Percocet 325-5 MG] Med 02/04/18 06:44 Active 1 - 2 tab PO Q4H PRN Aspirin [Ecotrin] Med 02/05/18 09:00 Active 325 mg PO BID Bisacodyl [Dulcolax] Med 02/04/18 06:45 Active 5 mg PO DAILY PRN Carbidopa/Levodopa [Sinemet 25-100 mg] Med 02/05/18 09:00 Active 1 tab PO DAILY ClonazePAM [KlonoPIN] Med 02/04/18 21:00 Active 1 mg PO BEDTIME Clopidogrel [Plavix] Med 02/05/18 09:00 Active 75 mg PO DAILY Docusate Sodium [Colace] Med 02/04/18 21:00 Active 100 mg PO BID Finasteride [Proscar] Med 02/05/18 09:00 Active 5 mg PO DAILY Ipratropium [Atrovent] Med 02/04/18 12:32 Active 0.5 mg NEB Q6HRRT PRN Ketorolac [Toradol] Med 02/04/18 09:00 Active 15 mg IVPUSH Q8H PRN Levalbuterol HCl [Xopenex] Med 02/04/18 11:28 Active 1.25 mg NEB QIDRT PRN Magnesium Hydroxide [Milk of Magnesia] Med 02/04/18 06:45 Active 30 ml PO BID PRN Metoprolol Succinate [Toprol XL] Med 02/05/18 09:00 Active 50 mg PO DAILY Morphine Med 02/04/18 06:45 Active 2 mg IVPUSH Q2H PRN Multivitamins,Therapeutic [Thera] Med 02/05/18 09:00 Active 1 each PO DAILY Naloxone [Narcan] Med 02/04/18 06:45 Active 0.1 mg IVPUSH Q5M PRN Nitroglycerin [Nitrostat] Med 02/04/18 09:06 Active 0.4 mg SL ASDIRECTED PRN Ondansetron [Zofran] Med 02/04/18 06:45 Active 4 mg IVPUSH Q6H PRN Oxybutynin [Oxybutynin ER] Med 02/05/18 09:00 Active 5 mg PO DAILY Patient's Own Medication [Ptom] Med 02/05/18 09:00 Active 0 each PO DAILY Patient's Own Medication [Ptom] Med 02/05/18 09:00 Active 0 each PO DAILY Sennosides [Senna] Med 02/04/18 06:45 Active 8.6 mg PO BID PRN Tamsulosin [Flomax] Med 02/04/18 21:00 Active 0.4 mg PO BID Antiembolic Hose [OM.PC] Per Unit Routine Oth 02/04/18 06:47 Ordered CPAP [RESPCARE] Routine Oth 02/04/18 12:55 Active Ice Therapy [OM.PC] Per Unit Routine Oth 02/04/18 06:47 Ordered Pulse Oximetry Continuous Monitoring [OM.PC] Routine Ot 02/04/18 11:00 Active Sequential Compression Device [OM.PC] Per Unit Routine Oth 02/04/18 06:44 Ordered Resuscitation Status Routine Resus Stat 02/04/18 06:45 Ordered EKG 12 Lead [EK] Stat Ther 02/04/18 09:41 Ordered Medication Orders Aspirin (Ecotrin) 325 mg PO BID [facility] Bisacodyl (Dulcolax) 5 mg PO DAILY PRN PRN Reason: Constipation Carbidopa/Levodopa (Sinemet 25-100 Mg) 1 tab PO DAILY [facility] Clonazepam (Klonopin) 1 mg PO BEDTIME [facility] Last Admin: 02/04/18 20:35 Dose: 1 mg Clopidogrel Bisulfate (Plavix) 75 mg PO DAILY [facility] Docusate Sodium (Colace) 100 mg PO BID [facility] Last Admin: 02/04/18 20:35 Dose: 100 mg Finasteride (Proscar) 5 mg PO DAILY [facility] Ipratropium Manderson (Atrovent) 0.5 mg NEB Q6HRRT PRN PRN Reason: SOB/Wheezing Last Admin: 02/04/18 14:52 Dose: 0.5 mg Ketorolac Tromethamine (Toradol) 15 mg IVPUSH Q8H PRN PRN Reason: Pain Last Admin: 02/05/18 06:28 Dose: 15 mg Levalbuterol HCl (Xopenex) 1.25 mg NEB QIDRT PRN PRN Reason: SOB/Wheezing Last Admin: 02/04/18 14:30 Dose: 1.25 mg Magnesium Hydroxide (Milk Of Magnesia) 30 ml PO BID PRN PRN Reason: Constipation Metoprolol Succinate (Toprol Xl) 50 mg PO DAILY [facility] Morphine Sulfate (Morphine) 2 mg IVPUSH Q2H PRN PRN Reason: Breakthrough Pain Multivitamins (Thera) 1 each PO DAILY [facility] Naloxone HCl (Narcan) 0.1 mg IVPUSH Q5M PRN PRN Reason: Oversedation Nitroglycerin (Nitrostat) 0.4 mg SL ASDIRECTED PRN PRN Reason: Chest Pain Ondansetron HCl (Zofran) 4 mg IVPUSH Q6H PRN PRN Reason: Nausea/Vomiting Oxybutynin Chloride (Oxybutynin Er) 5 mg PO DAILY [facility] Oxycodone/Acetaminophen (Percocet 325-5 Mg) 1 - 2 tab PO Q4H PRN PRN Reason: Pain Pravastatin Sodium (80 Mg) 0 each PO DAILY [facility] Selegiline Hcl 2.5 (Mg) 0 each PO DAILY [facility] Senna (Senna) 8.6 mg PO BID PRN PRN Reason: Constipation Tamsulosin HCl (Flomax) 0.4 mg PO BID [facility] Last Admin: 02/04/18 20:35 Dose: 0.4 mg - Assessment Assessment (Free Text/Narrative):: POD#1 - left TKA - Plan Plan (Free Text/Narrative):: 1. Hgb 12.8. 2. Discharge to home today if cleared by Hospitalist service and therapies. 3. ASA, TEDs, frequent mobility. The pt's case was discussed with Dr. Marroquin.
[2018-02-05] MEDS ORDERED: Clopidogrel 75 MG Tab PO SCH (09:00)
[2018-02-05] MEDS ORDERED: Metoprolol Succinate 50 MG Tab.ER PO SCH (09:00)
[2018-02-05] MEDS ORDERED: SELEGILINE PO SCH (09:00)
[2018-02-05] MEDS ORDERED: Multivitamins,Therapeutic Tab PO SCH (09:00)
[2018-02-05] MEDS ORDERED: Carbidopa/Levodopa 25-100 MG Tab PO SCH (09:00)
[2018-02-05] MEDS ORDERED: Finasteride 5 MG Tab PO SCH (09:00)
[2018-02-05] MEDS ORDERED: Aspirin 325 MG Tab.EC PO SCH (09:00)
[2018-02-05] MEDS ORDERED: Pravastatin Sodium 80 MG PO SCH (09:00)
[2018-02-05] MEDS ORDERED: Oxybutynin 5 MG Tab.ER PO SCH (09:00)
--- NOTE | 2018-02-05 09:42 | PCM48HPAN ---
Post Anesthesia Note - EVALUATION WITHIN 48HRS OF ANESTHETIC Vital Signs in Normal Range: Yes Patient Participated in Evaluation: Yes Respiratory Function Stable: Yes Airway Patent: Yes Cardiovascular Function Stable: Yes Hydration Status Stable: Yes Pain Control Satisfactory: Yes Nausea and Vomiting Control Satisfactory: Yes Mental Status Recovered: Yes - COMMENTS/OBSERVATIONS Free Text/Narrative:: patient denies any anesthesia complications
[2018-02-05] MEDS: Tamsulosin 0.4 MG Cap.ER PO SCH (09:58)
[2018-02-05] MEDS: Docusate Sodium 100 MG Cap PO SCH (09:59)
[2018-02-05] MEDS: Acetaminophen/oxyCODONE 325-5 MG Tab PO PRN ×2 (11:22→11:24)
[2018-02-05 12:24] VITALS: BP 128/93
--- NOTE | 2018-02-13 07:23 | PCM.OPNOTE ---
- General Post-Op/Procedure Note Date of Surgery/Procedure: 02/04/18 Operative Procedure(s): left total knee arthroplasty Pre Op Diagnosis: left knee osteoarthrosis Post-Op Diagnosis: Same Anesthesia Technique: Local, MAC, Spinal Primary Surgeon: Torito Marroquin Anesthesia Provider: Lana Webber Chief Medical Officer: Selin Gonzalez Chief Medical Officer: Edna Matute EBL in mLs: 300 Complications: None Condition: Good
--- NOTE | 2018-02-13 07:49 | OR ---
DATE OF OPERATION: 02/04/2018 SURGEON: Torito Marroquin MD OPERATION PERFORMED: Left total knee arthroplasty. PREOPERATIVE DIAGNOSIS: Left knee osteoarthrosis. POSTOPERATIVE DIAGNOSIS: Left knee osteoarthrosis. ANESTHESIA: Local MAC with spinal. ANESTHESIA PROVIDER: Lana Webber CRNA ASSISTANTS: 1. Selin Gonzalez PA-C. 2. Edna Matute LPN. ESTIMATED BLOOD LOSS: 300 mL. COMPLICATIONS: None. CONDITION: Stable. IMPLANTS: 1. Rachel size 5 CR press-fit femur. 2. Rachel size 5 press-fit, size 5, tibial baseplate. 3. Lakewood size 5 9-mm CS polyethylene insert. 4. Rachel size 32 x 10 mm press-fit patella. DESCRIPTION OF PROCEDURE: The patient was identified in the preop holding area. Proper site was marked and identified by the surgeon. The patient was taken back to the operating theater. After adequate anesthesia, the patient's left lower extremity had a nonsterile tourniquet applied and it was then sterilely prepped and draped in the usual sterile fashion. OR timeout was performed. The patient received 2 grams IV Ancef. At this time, left lower extremity was exsanguinated. Tourniquet was insufflated to 300 mmHg. Standard medial parapatellar incision was made. Medial parapatellar arthrotomy was created. Deep fibers of the MCL were raised and anterior fat pad was resected. At this time, attention was turned to the patella. Patella measured 24, it was resected to a 14 for a 32 x 10 mm patella. Drill holes were then drilled and found to be in adequate position. The drill was then drilled in the distal femur and the intramedullary distal femoral cutting guide was then placed. 8 mm was resected off the distal femur and was found to be an adequate resection. Sizing guide was placed. It was found to be a Lake[place] size 5 CR press-fit femur that was shown on the implant record at the beginning of this dictation. The drill holes were drilled for the epicondylar axis using Whitesides line and epicondyles as reference. At this time, the 4-in-1 cutting block was placed. An anterior posterior and anterior and posterior chamfer cuts were then completed. The correct size box cut was then placed and the box cut was completed and found to be an adequate resection. Attention was turned to the tibia. The posterior medial lateral retractors were placed. The extramedullary tibial guide was placed. It was placed in the old footprint of the ACL. It was aligned with the center of the ankle and 0 degrees of slope, 9 mm was then resected off the unaffected lateral side. There was found to be an acceptable reduction. At this time, posterior osteophytes were removed along with medial and lateral meniscus. A trial implant was placed with a correct sized tibia that was mentioned at the beginning of the dictation. A Rachel size 5 9-mm CS polyethylene insert was then placed. The patient's knee was brought through range of motion. The patella was tracking centrally and was stable to varus and valgus stress. Alignment was found to be roughly at 0 degrees. The tibia was stamped and drilled in proper rotation. The universal tibial base plate was impacted in place. Next, the Rachel size 5 CR press-fit femur was impacted into place and the [place] size 5 9-mm CS polyethylene insert was placed. The patient's knee was brought into full extension. The patella was then press-fit in place at this time. Tourniquet was deflated. One liter dilute Betadine solution was irrigated through the knee along with 3 L of pulse lavage irrigation with Ancef. Periarticular injection was then completed. The patient's knee was brought through a range of motion. Knee was found to be stable to varus valgus stress, the patella was tracking centrally with full range of motion. At this time, a #2 barbed suture was used for closure of the medial parapatellar arthrotomy. Topical tranexamic acid was placed. 2-0 Vicryl was used subcutaneously, a running 3-0 Monocryl was used subcuticularly. The patient tolerated the procedure well and was sent to the PACU in stable condition. MARYANN /[id number] TELLY
== END 2018-02-05 15:24 | disposition home or self-care (01) ==
LOC: JD.SDS 06:01 → JD.MS 06:05 → JD.SDS 02-05 15:24
PROVIDERS: ATTEND Orthopaedic Surgery
DX: M17.12 Unilateral primary osteoarthritis, left knee (principal); I11.0 Hypertensive heart disease with heart failure; I50.9 Heart failure, unspecified; I25.10 Atherosclerotic heart disease of native coronary artery without angina pectoris; G20 Parkinson's disease; E78.2 Mixed hyperlipidemia; G47.33 Obstructive sleep apnea (adult) (pediatric); J44.9 Chronic obstructive pulmonary disease, unspecified; Z99.89 Dependence on other enabling machines and devices; K21.9 Gastro-esophageal reflux disease without esophagitis; Z87.891 Personal history of nicotine dependence; Z79.82 Long term (current) use of aspirin; Z79.899 Other long term (current) drug therapy; Z88.0 Allergy status to penicillin; Z88.1 Allergy status to other antibiotic agents; Z88.6 Allergy status to analgesic agent; Z88.8 Allergy status to other drugs, medicaments and biological substances; Z91.041 Radiographic dye allergy status
CPT/HCPCS: 27447; 36415; 73560; 80053; 85014; 85018; 85027; 87641; 93005; 94640; 94762; 97110; 97116; 97162; 97166; 97535; A9270; C1776; J0171; J0330; J0690; J0697; J1100; J1170; J1885; J2250; J2270; J2370; J2405; J2704; J2795; J3010; J3370; J3490; J7050; J7120; J7612; 01402; 64450; J2001

== ENCOUNTER 2018-12-07 10:42 | Emergency (ER) | payer MEDICARE, OTHER ==
[2018-12-07 10:59] VITALS: BP 136/76
--- NOTE | 2018-12-07 11:26 | EDM.PDOC ---
ED HPI GENERAL MEDICAL PROBLEM - General Chief Complaint: Cardiovascular Problem Stated Complaint: SWOLLEN HANDS Time Seen by Provider: 12/07/18 11:20 Source of Information: Reports: Patient History Limitations: Reports: No Limitations - History of Present Illness INITIAL COMMENTS - FREE TEXT/NARRATIVE: Patient is a 73-year-old male who presents the ED complaining of bilateral hand swelling for the past week with increasing discomfort noted. States since onset of the discomfort he's noted some decrease in strength bilaterally. They recently increased his dose of Crestor at about the same time. Since doing so has developed the swelling. There is no increased swelling to his lower extremities. He is crying short of breath with laying flat unchanged. He has not recently gained any weight. States she's lost weight actually. There's been no chest pain or documented fever. Nor has been any trauma or activity or precipitated this. States they do routinely check him for any gout to which is BACK negative. He does complain of some right shoulder discomfort. History of arthroscopic. Unchanged. No swelling noted to the forearm, elbow, upper arms bilaterally. He does have a history of osteoarthritis. Took Tylenol 2 hours prior to arrival which diminished his discomfort. Pain is currently a 5 out of 10. 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 (see below) Other Treatments INDUSTRIAL FURNACE FABRICATOR: none Bilateral Hand Pain Score (Numeric/FACES): 8 - Related Data Allergies Allergy/AdvReac Type Severity Reaction Status Date / Time Iodinated Contrast- Oral and Allergy Hives Verified 01/31/18 10:49 IV Dye lisinopril Allergy Cannot Verified 04/21/17 18:58 Remember ampicillin AdvReac Nausea and Verified 02/04/18 08:41 Vomiting atorvastatin calcium AdvReac Pain Verified 01/31/18 10:48 [From Lipitor] cefazolin AdvReac Nausea and Verified 02/04/18 08:42 Vomiting NSAIDS (Non-Steroidal AdvReac Contraindications Verified 02/01/18 12:18 Anti-Inflamma d/t taking Plavix Home Meds: Home Meds Carbidopa/Levodopa [Sinemet 25-100 mg Tablet] 1 tab PO DAILY 02/01/18 [History] Clopidogrel [Plavix] 75 mg PO DAILY 02/01/18 [History] Finasteride [Proscar] 5 mg PO DAILY 02/01/18 [History] Metoprolol Succinate 50 mg PO DAILY 02/01/18 [History] Multivitamin [Multi-Vitamin Daily] 1 tab PO DAILY 02/01/18 [History] Nitroglycerin [Nitrostat] 0.4 mg BUCCAL ASDIRECTED PRN 02/01/18 [History] Oxybutynin [Oxybutynin ER] 5 mg PO DAILY 02/01/18 [History] Selegiline HCl 2.5 mg PO DAILY 02/01/18 [History] Tamsulosin [Flomax] 0.4 mg PO BID 02/01/18 [History] clonazePAM [Klonopin] 1 mg PO BEDTIME 02/01/18 [History] Acetaminophen [Tylenol Extra Strength] 1,000 mg PO Q4H PRN #0 02/04/18 [Rx] Acetaminophen/oxyCODONE [Percocet 325-5 MG] 1 - 2 tab PO Q6H PRN #60 tablet [Rx] Aspirin [Ecotrin] 325 mg PO BID #84 tab.ec 02/04/18 [Rx] Bisacodyl [Dulcolax] 5 mg PO DAILY PRN tablet 02/04/18 [Rx] Docusate Sodium [Colace] 100 mg PO BID cap 02/04/18 [Rx] Magnesium Hydroxide [Milk of Magnesia] 30 ml PO BID PRN cup 02/04/18 [Rx] Sennosides [Senna] 8.6 mg PO BID PRN tablet 02/04/18 [Rx] Pravastatin [Pravachol] 80 mg PO DAILY #60 tablet 12/07/18 [Rx] Past Medical History HEENT History: Reports: Impaired Vision Other HEENT History: wears eyeglasses Cardiovascular History: Reports: CAD, Heart Failure, High Cholesterol, Hypertension, [place], Stents Other Cardiovascular History: 3 stents placed in about 2004. 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 Musculoskeletal History: Reports: Fracture Other Musculoskeletal History: DJD, TKA, Right Knee Arthroscopy, Shoulder Arthroscopy, Femur Sx Neurological History: Reports: Parkinson's Other Neuro History: Dizziness Psychiatric History: Reports: Anxiety Other Psychiatric History: REM Sleep Disorder Other Hematologic History: Hypomagnesemia Oncologic (Cancer) History: Reports: Other (See Below) Other Oncologic History: cancerous tumor removed from bladder, 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 ) lower leg with skin graft - Infectious Disease History Infectious Disease History: Reports: C-Difficile, Measles, Mumps - Past Surgical History HEENT Surgical History: Reports: Eye Surgery GI Surgical History: Reports: Colonoscopy Musculoskeletal Surgical History: Reports: Knee Replacement, Shoulder Surgery Dermatological Surgical History: Reports: Skin Graft Social & Family History - Family History Family Medical History: Noncontributory - Tobacco Use Smoking Status *Q: Former Smoker Used Tobacco, but Quit: Yes Month/Year Tobacco Last Used: 15 yrs - Caffeine Use Caffeine Use: Reports: Coffee, Soda, Tea - Recreational Drug Use Recreational Drug Use: No - Living Situation & Occupation Living situation: Reports: Other ED ROS GENERAL - Review of Systems Review Of Systems: ROS reveals no pertinent complaints other than HPI. ED EXAM, GENERAL - Physical Exam Exam: See Below Exam Limited By: No Limitations General Appearance: Alert, WD/WN, No Apparent Distress Ears: Hearing Grossly Normal Nose: Normal Inspection Throat/Mouth: Normal Voice, No Airway Compromise Head: Atraumatic, Normocephalic Neck: Normal Inspection, Supple Respiratory/Chest: No Respiratory Distress, Lungs Clear, Normal Breath Sounds, No Accessory Muscle Use, Chest Non-Tender Cardiovascular: Normal Peripheral Pulses, Regular Rate, Rhythm, No Murmur Peripheral Pulses: 1+: Radial (L) (Hx of ORIF of the left radius/ulna. Decreased pulse present. ), 2+: Radial (R) GI/Abdominal: Normal Bowel Sounds, Soft, Non-Tender, No Organomegaly, No Distention Back Exam: Normal Inspection Extremities: Normal Range of Motion, Non-Tender, No Pedal Edema Neurological: Alert, Oriented, CN II-XII Intact, Normal Cognition, No Motor/ Sensory Deficits Psychiatric: Normal Affect, Normal Mood Skin Exam: Warm, Dry, Intact, Normal Color, No Rash Course - Vital Signs Last Recorded V/S: Last Vital Signs Temp 96.9 F 12/07/18 10:57 Pulse 82 12/07/18 10:57 Resp 20 12/07/18 10:57 BP 136/76 12/07/18 10:57 Pulse Ox 95 12/07/18 10:57 - Orders/Labs/Meds Labs: Laboratory Tests 12/07/18 12/07/18 12/07/18 Range/Units 11:50 11:50 11:50 WBC 7.37 (4.23-9.07) K/mm3 RBC 5.20 (4.63-6.08) M/mm3 Hgb 14.5 D (13.7-17.5) gm/L Hct 43.9 (40.1-51.0) % MCV 84.4 (79.0-92.2) fl MCH 27.9 (25.7-32.2) pg MCHC 33.0 (32.2-35.5) g/dl RDW Std Deviation 42.3 (35.1-43.9) fL Plt Count 210 (163-337) K/mm3 MPV 8.8 L (9.4-12.3) fl Neutrophils % (Manual) 73 H (40-60) % Band Neutrophils % 0 (0-10) % Lymphocytes % (Manual) 15 L (20-40) % Atypical Lymphs % 0 % Monocytes % (Manual) 5 (2-10) % Eosinophils % (Manual) 7 (0.8-7.0) % Basophils % (Manual) 0 L (0.2-1.2) Platelet Estimate Adequate Plt Morphology Comment Normal RBC Morph Comment Normal ESR 12 (0-15) mm/hr Sodium 140 (136-145) mEq/L Potassium 4.2 (3.5-5.1) mEq/L Chloride 102 (98-107) mEq/L Carbon Dioxide 28 (21-32) mEq/L Anion Gap 14.2 (5-15) BUN 22 H (7-18) mg/dL Creatinine 1.0 (0.7-1.3) mg/dL Est Cr Clr Drug Dosing 57.23 mL/min Estimated GFR (MDRD) > 60 (>60) mL/min BUN/Creatinine Ratio 22.0 H (14-18) Glucose 129 H (83-115) mg/dL Uric Acid 7.2 (3.5-7.2) mg/dL Calcium 9.6 (8.5-10.1) mg/dL Total Bilirubin 0.4 (0.2-1.0) mg/dL AST 16 (15-37) U/L ALT 12 L (16-63) U/L Alkaline Phosphatase 81 (46-116) U/L Creatine Kinase 61 (39-308) U/L C-Reactive Protein 0.5 (<1.0) mg/dL NT-Pro-B Natriuret Pep (0-125) pg/mL Total Protein 7.2 (6.4-8.2) g/dl Albumin 3.5 (3.4-5.0) g/dl Globulin 3.7 gm/dL Albumin/Globulin Ratio 1.0 (1-2) / Range/Units 11:50 WBC (4.23-9.07) K/mm3 RBC (4.63-6.08) M/mm3 Hgb (13.7-17.5) gm/L Hct (40.1-51.0) % MCV (79.0-92.2) fl MCH (25.7-32.2) pg MCHC (32.2-35.5) g/dl RDW Std Deviation (35.1-43.9) fL Plt Count (163-337) K/mm3 MPV (9.4-12.3) fl Neutrophils % (Manual) (40-60) % Band Neutrophils % (0-10) % Lymphocytes % (Manual) (20-40) % Atypical Lymphs % % Monocytes % (Manual) (2-10) % Eosinophils % (Manual) (0.8-7.0) % Basophils % (Manual) (0.2-1.2) Platelet Estimate Plt Morphology Comment RBC Morph Comment ESR (0-15) mm/hr Sodium (136-145) mEq/L Potassium (3.5-5.1) mEq/L Chloride (98-107) mEq/L Carbon Dioxide (21-32) mEq/L Anion Gap (5-15) BUN (7-18) mg/dL Creatinine (0.7-1.3) mg/dL Est Cr Clr Drug Dosing mL/min Estimated GFR (MDRD) (>60) mL/min BUN/Creatinine Ratio (14-18) Glucose (83-115) mg/dL Uric Acid (3.5-7.2) mg/dL Calcium (8.5-10.1) mg/dL Total Bilirubin (0.2-1.0) mg/dL AST (15-37) U/L ALT (16-63) U/L Alkaline Phosphatase (46-116) U/L Creatine Kinase (39-308) U/L C-Reactive Protein (<1.0) mg/dL NT-Pro-B Natriuret Pep 86 (0-125) pg/mL Total Protein (6.4-8.2) g/dl Albumin (3.4-5.0) g/dl Globulin gm/dL Albumin/Globulin Ratio (1-2) Meds: Medications Discontinued Medications Generic Name Dose Route Start Last Admin Trade Name Maryann PRN Reason Stop Dose Admin Hydrocodone Bitart/Acetaminophen 1 tab 12/07/18 11:43 12/07/18 11:55 Dawn 325-5 Mg PO 12/07/18 11:44 1 tab ONETIME ONE Administration - Re-Assessments/Exams Free Text/Narrative Re-Assessment/Exam: On examination patient does have bilateral swelling to his hands. Left greater than right. No pain with palpation along the vas culture of the upper extremities. There is no swelling to the forearm, elbow, upper eyes bilaterally. He has full range of motion. No tenderness noted with palpation of the hands with examination although the patient states they do ache. Some slight redness along the second and third MCP bilaterally. Otherwise examination was benign. Differential diagnosis includes: DVT, worsening congestive heart failure, acute gout episode, acute renal failure. I suspect this more likely gout in origin. Patient has no swelling to the remaining aspects of the upper extremities suggesting DVT. Nor any pain with palpation of the vasculature. I do do not believe this is related to CHF/acute on chronic renal failure since he is not gaining weight, worsening shortness of breath, and/or increased edema to his lower extremities. This may be medication induced with increasing his dose of Crestor CBC and C14 were essentially normal. Uric acid 7.2, crp .05, esr 12, and PBNP 86. Unclear etiology of current complaint. Symptoms came on with taking crestor at higher dose. He will decrease to previous dose and see pcp in the next wk. He was also instructed to utilize tylenol on a intermittent basis to treat pain for osteoarthritis. Return precautions discussed with the patient. He had no further questions or concerns. Correction: With signing discharge instructions. Patient had asked for prescription for prior medication used for cholesterol. This was pravastatin 80 mg. Patient states he was provided a prescription in July for the Crestor and was instructed to finish the full course of pravastatin prior to starting. He did obtain the prescription for crestor in July. This was for 20 mg every day. He started taking this medication 1 week ago with onset of discomfort and swelling. Prescription for pravastatin provided. This information was initially presented in a way the crestor was started in July. He was instructed to follow-up with PCP this coming week. Patient states in the past has had issues with taking the crestor. Departure - Departure Time of Disposition: 13:02 Disposition: Home, Self-Care 01 Condition: Good Clinical Impression: Localized swelling of both hands Prescriptions: Pravastatin [Pravachol] 80 mg PO DAILY #60 tablet Referrals: Renee Monreal MD [Primary Care Provider] - Forms: ED Department Discharge Additional Instructions: Unclear etiology of current complaint. Symptoms came on with taking crestor at higher dose. As discussed decrease crestor to previous dose and see pcp in the next wk. Utilize tylenol on a intermittent basis to treat pain for osteoarthritis. This maybe the culprit as well with recent weather changes. Elevate when able to reduce any swelling. Please return to the E.D. for any new or worsening symptoms.
[2018-12-07] MEDS ORDERED: Acetaminophen/HYDROcodone 325-5 MG Tab PO ONE (11:43)
== END 2018-12-07 13:28 | disposition home or self-care (01) ==
LOC: JD.ED 10:42
DX: R22.33 Localized swelling, mass and lump, upper limb, bilateral (principal); I11.0 Hypertensive heart disease with heart failure; I50.9 Heart failure, unspecified; I25.10 Atherosclerotic heart disease of native coronary artery without angina pectoris; I25.2 Old myocardial infarction; Z95.5 Presence of coronary angioplasty implant and graft; Z88.8 Allergy status to other drugs, medicaments and biological substances; Z88.1 Allergy status to other antibiotic agents; Z79.899 Other long term (current) drug therapy; Z87.891 Personal history of nicotine dependence
CPT/HCPCS: 36415; 80053; 82550; 83880; 84550; 85007; 85027; 85652; 86140; 99283; A9270

== ENCOUNTER 2020-06-14 06:50 | Day surgery (SDC) | payer MEDICARE, OTHER ==
[~2020-06-14 06:50] MED LIST changes: -Acetaminophen 325 MG Tab PO SCH; -EPINEPHrine 1 MG/ML SDV ONE; -Pregabalin 25 MG Cap PO SCH; -Ropivacaine 0.5% 5 MG/ML 30 ML SDV ONE; -oxyCODONE ER 10 MG TAB.ER PO SCH
[2020-06-14] MEDS ORDERED: Lidocaine 1% with EPINEPHrine 1:100,000 20 ML MDV ONE ×2 (07:08→07:43)
[2020-06-14] MEDS ORDERED: Bupivacaine 0.5% 30 ML SDV ONE (07:08)
[2020-06-14] MEDS ORDERED: Ondansetron 4 MG/2 ML SDV ONE (07:24)
[2020-06-14] MEDS ORDERED: Lidocaine 1% 4 ML ONE (07:24)
[2020-06-14] MEDS ORDERED: Dexamethasone 4 MG/ML 5 ML MDV ONE (07:24)
[2020-06-14] MEDS ORDERED: Propofol 200 MG/20 ML SDV ONE ×2 (07:24→09:04)
[2020-06-14] MEDS ORDERED: Rocuronium 50 MG/5 ML Vial ONE (07:25)
[2020-06-14] MEDS ORDERED: fentaNYL 250 MCG/5 ML SDV ONE (07:27)
--- NOTE | 2020-06-14 07:41 | PCM.PREANE ---
Preanesthetic Assessment - Procedure Proposed Procedure: Open umbiilical hernia repair with mesh - Anesthesia/Transfusion/Family Hx Anesthesia History: Prior Anesthesia Without Reaction Family History of Anesthesia Reaction: No Transfusion History: No Prior Transfusion(s) Intubation History: Unknown - Review of Systems General: No Symptoms Pulmonary: No Symptoms, Shortness of Breath, Other (wears CPAP ) Cardiovascular: Other ([place] history ) Gastrointestinal: No Symptoms Neurological: No Symptoms, Gait Disturbance, Other (parkinsons disease ) Other: Reports: None - Physical Assessment NPO Status Date: 06/13/20 NPO Status Time: 21:00 Height: 19.81 m Weight: 90.401 kg ASA Class: 3 Mental Status: Alert & Oriented x3 Lungs: Clear to Auscultation, Other (incereased rr effort at rest, pt complaining of SOB he said due to needing to wear a mask ) - Allergies Allergies/Adverse Reactions: Allergies Allergy/AdvReac Type Severity Reaction Status Date / Time Iodinated Contrast Media Allergy Hives Verified 06/11/20 12:15 [Iodinated Contrast- Oral and IV Dye] lisinopril Allergy Cannot Verified 06/11/20 12:15 Remember ampicillin AdvReac Nausea and Verified 06/11/20 12:15 Vomiting atorvastatin calcium AdvReac Pain Verified 06/11/20 12:15 [From Lipitor] cefazolin AdvReac Nausea and Verified 06/11/20 12:15 Vomiting NSAIDS (Non-Steroidal AdvReac Contraindications Verified 06/11/20 12:15 Anti-Inflamma d/t taking Plavix rosuvastatin [From Crestor] AdvReac Muscle Verified 06/13/20 10:44 Aches - Blood Blood Available: No - Anesthesia Plan Pre-Op Medication Ordered: None Beta Brijesh: Metoprolol Med Last Dose Date: 06/13/20 - Acknowledgements Anesthesia Type Planned: General Anesthesia (LMA ) Pt an Appropriate Candidate for the Planned Anesthesia: Yes Alternatives and Risks of Anesthesia Discussed w Pt/Guardian: Yes Pt/Guardian Understands and Agrees with Anesthesia Plan: Yes PreAnesthesia Questionnaire HEENT History: Reports: Hard of Hearing, Impaired Vision Other HEENT History: wears eyeglasses, has dentures, has hearing aides Cardiovascular History: Reports: CAD, Heart Failure, High Cholesterol, Hypertension, [place], P[place], Stents Other Cardiovascular History: 3 stents placed in about 2004. 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 Musculoskeletal History: Reports: Fracture, Other (See Below) Other Musculoskeletal History: DJD, TKA, Right Knee Arthroscopy, Shoulder Arthroscopy, Femur Sx Neurological History: Reports: Parkinson's Other Neuro History: Dizziness Psychiatric History: Reports: Anxiety Other Psychiatric History: REM Sleep Disorder Endocrine/Metabolic History: Reports: Osteopenia Other Hematologic History: Hypomagnesemia Immunologic History: Reports: None Oncologic (Cancer) History: Reports: Bladder, Other (See Below) Other Oncologic History: cancerous tumor removed from bladder, 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) lower leg with skin graft Dermatologic History: Reports: None - Infectious Disease History Infectious Disease History: Reports: C-Difficile, Measles, Mumps - Past Surgical History Head Surgeries/Procedures: Reports: None HEENT Surgical History: Reports: Cataract Surgery, Eye Surgery Cardiovascular Surgical History: Reports: None Respiratory Surgical History: Reports: None GI Surgical History: Reports: Cholecystectomy, Colonoscopy, EGD Other Female Surgeries/Procedures: Cystoscopy Male Surgical History: Reports: Other (See Below) Endocrine Surgical History: Reports: None Neurological Surgical History: Reports: Laminectomy, Lumbar Spine Musculoskeletal Surgical History: Reports: Knee Replacement, Shoulder Surgery Oncologic Surgical History: Reports: None Dermatological Surgical History: Reports: None, Skin Graft - SUBSTANCE USE Tobacco Use Status *Q: Former Tobacco User Recreational Drug Use History: No - HOME MEDS Home Medications: Home Meds Carbidopa/Levodopa [Sinemet 25-100 mg Tablet] 1 tab PO DAILY 02/01/18 [History] Clopidogrel [Plavix] 75 mg PO DAILY 02/01/18 [History] Finasteride [Proscar] 5 mg PO DAILY 02/01/18 [History] Metoprolol Succinate 50 mg PO DAILY 02/01/18 [History] Nitroglycerin [Nitrostat] 0.4 mg BUCCAL ASDIRECTED PRN 02/01/18 [History] Oxybutynin [Oxybutynin ER] 5 mg PO DAILY 02/01/18 [History] Selegiline HCl 2.5 mg PO DAILY 02/01/18 [History] Tamsulosin [Flomax] 0.4 mg PO BID 02/01/18 [History] Acetaminophen [Tylenol Extra Strength] 1,000 mg PO Q4H PRN #0 02/04/18 [Rx] Pravastatin [Pravachol] 80 mg PO DAILY #60 tablet 12/07/18 [Rx] Aspirin 81 mg PO DAILY 06/11/20 [History] Melatonin 1 mg PO BEDTIME PRN 06/11/20 [History] Pantoprazole Sodium [Protonix] 20 mg PO DAILY 06/11/20 [History] Potassium Chloride 20 meq PO DAILY 06/11/20 [History] clonazePAM [Clonazepam] 1 mg PO BEDTIME 06/11/20 [History] hydroCHLOROthiazide [Hydrochlorothiazide] 25 mg PO DAILY 06/11/20 [History] - CURRENT (IN HOUSE) MEDS Current Meds: Current Medications Lactated Ringer's (Ringers, Lactated) 1,000 mls @ 125 mls/hr IV ASDIRECTED MORALES Stop: 06/14/20 23:00 Lidocaine/Sodium Bicarbonate (Buffered Lidocaine 1% In Ns 8.4%) 0.25 ml IDERM ONETIME PRN PRN Reason: Prior to IV Start Stop: 06/14/20 18:00 Sodium Chloride (Saline Flush) 10 ml FLUSH ASDIRECTED PRN PRN Reason: Keep Vein Open Stop: 06/14/20 18:00 Discontinued Medications Bupivacaine HCl (Marcaine 0.5%) Confirm Administered Dose 30 ml .ROUTE .STK-MED ONE Stop: 06/14/20 07:09 Dexamethasone (Dexamethasone) Confirm Administered Dose 20 mg .ROUTE .STK-MED ONE Stop: 06/14/20 07:25 Fentanyl (Sublimaze) Confirm Administered Dose 250 mcg .ROUTE .STK-MED ONE Stop: 06/14/20 07:28 Lidocaine HCl (Xylocaine-Mpf 1%) Confirm Administered Dose 4 mls @ as directed .ROUTE .STK-MED ONE Stop: 06/14/20 07:25 Lidocaine/Epinephrine (Xylocaine 1% With Epinephrine 1:100,000) Confirm Administered Dose 20 ml .ROUTE .STK-MED ONE Stop: 06/14/20 07:09 Ondansetron HCl (Zofran) Confirm Administered Dose 4 mg .ROUTE .STK-MED ONE Stop: 06/14/20 07:25 Propofol (Diprivan 20 Ml) Confirm Administered Dose 200 mg .ROUTE .STK-MED ONE Stop: 06/14/20 07:25 Rocuronium Davis (Zemuron) Confirm Administered Dose 50 mg .ROUTE .STK-MED ONE Stop: 06/14/20 07:26
[2020-06-14] MEDS ORDERED: Clindamycin Phosphate 900 MG/6 ML SDV ONE (07:42)
[2020-06-14] MEDS ORDERED: Clindamycin Phosphate in D5W 900 MG in Premix Bag 1 BAG IV ONE ×2 (08:00)
[2020-06-14] MEDS ORDERED: Metoprolol Succinate 25 MG Tab.ER PO ONE (08:00)
[2020-06-14] MEDS ORDERED: ePHEDrine 50 MG/ML SDV ONE (08:50)
[2020-06-14] MEDS ORDERED: Lactated Ringers 1,000 ML ONE (08:52)
[2020-06-14] MEDS ORDERED: Ondansetron 4 MG/2 ML SDV IVPUSH PRN (09:44)
[2020-06-14] MEDS ORDERED: diphenhydrAMINE 50 MG/ML SDV IVPUSH PRN (09:44)
[2020-06-14] MEDS ORDERED: fentaNYL 100 MCG/2 ML SDV IVPUSH PRN (09:44)
--- NOTE | 2020-06-14 09:44 | PCM.POSTAN ---
POST ANESTHESIA ASSESSMENT - MENTAL STATUS Mental Status: Other (drowsy ) - VITAL SIGNS Vital Signs: Last Vital Signs Temp 36.4 C 06/14/20 09:36 Pulse 108 H 06/14/20 09:36 Resp 11 L 06/14/20 09:36 BP 133/68 06/14/20 09:36 Pulse Ox 93 L 06/14/20 09:36 - RESPIRATORY Respiratory Status: Respiratory Rate WNL, Airway Patent, O2 Saturation Stable, Supplemental Oxygen - CARDIOVASCULAR CV Status: Blood Pressure Stable, Elevated Pulse Rate - GASTROINTESTINAL GI Status: No Symptoms - PAIN Pain Score: 0 - POST OP HYDRATION Hydration Status: Adequate & Stable
--- NOTE | 2020-06-14 10:24 | OR ---
DATE OF OPERATION: 06/14/2020 SURGEON: Kiesha Garsia MD PREOPERATIVE DIAGNOSIS: Symptomatic umbilical hernia. POSTOPERATIVE DIAGNOSIS: Symptomatic umbilical hernia. OPERATION PERFORMED: Open umbilical hernia repair without mesh. ANESTHESIA: LMA with local anesthetic. Local - 1% lidocaine with epinephrine. ESTIMATED BLOOD LOSS: 5 mL. COMPLICATIONS: None. INDICATIONS AND CONSENT: The patient is a 74-year-old male who had chronic umbilical hernia. This started becoming symptomatic in the last few months. The symptoms included pain at the umbilical site, especially at the end of the day after the patient is done with being up for a period of time. The patient presented to my clinic for evaluation for repair. I evaluated the patient and recommended surgical repair, open. I discussed with the patient risks, benefits, and alternatives, and informed consent was obtained. DESCRIPTION OF PROCEDURE: The patient was met in the preop area and was doing well. Then, he was taken to the operating room and placed in the supine position. Clindamycin was administered due to allergies to both Ancef and ampicillin. The patient was appropriately padded. SCDs were placed on bilateral lower extremities. Time- out was performed, and LMA anesthesia was induced. Then, the abdomen was clipped of any hair and prepped and draped in the usual sterile fashion. Then, we began the procedure. We began the procedure by injecting local anesthetic in the periumbilical area. Incision was made just above the umbilicus at the hernia site, about 4 cm incision. Then, the hernia sac was encountered. This was left intact and was isolated from surrounding tissue sharply with Metzenbaum scissors. Once the hernia sac and contents were isolated circumferentially, then they were detached from the fascial edges sharply again with Metzenbaum scissors. The hernia sac and contents were then amputated as they were not able to be reduced into the abdomen. The hernia sac and contents consisted of preperitoneal fat. Once this was done, the rest of the hernia contents were placed back into the abdomen, and they reduced back without any problem. Fat from around the fascia was cleared. The hernia defect was measured to be 1.5 cm at the greatest dimension, which was from left to right. Once this was done, then the decision was made to proceed with a primary repair, avoiding mesh due to the small size of the hernia. #1 PDS was used to repair the hernia in 2 ways. The first repair was with a horizontal mattress stitch, followed by 2 [id number] stitches. Once this was done, the hernia was well-approximated and overlapping, and we proceeded with closure. The umbilical stalk was reattached to the fascia with 3-0 Vicryl stitch, and then the incision was closed in layers with deeper layers closed with 2-0 Vicryl stitches, and subdermal and subcutaneous fat were reapproximated with 3-0 Vicryl stitches, and then Dermabond was applied. This marked the end of the procedure. At the end of this procedure, all instruments, sharps, and sponges were counted and found to be correct x2. The patient was awakened and taken to the recovery room. The patient will be allowed to return home if recovers well. The patient will be encouraged to take Tylenol and ibuprofen for pain management, and I will see the patient in 2 weeks for followup. MARYANN /[id number] TELLY
[2020-06-14 11:31] VITALS: BP 127/56; PULSE 88
--- NOTE | 2020-06-14 12:07 | PCM48HPAN ---
Post Anesthesia Note - EVALUATION WITHIN 48HRS OF ANESTHETIC Vital Signs in Normal Range: Yes (some desaturations, improved with coughing and deep breathing, IS for home) Patient Participated in Evaluation: Yes Respiratory Function Stable: Yes Airway Patent: Yes Cardiovascular Function Stable: Yes Hydration Status Stable: Yes Pain Control Satisfactory: Yes Nausea and Vomiting Control Satisfactory: Yes Mental Status Recovered: Yes Vital Signs: Last Vital Signs Temp 36.7 C 06/14/20 10:45 Pulse 88 06/14/20 11:18 Resp 16 06/14/20 11:18 BP 127/56 L 06/14/20 11:18 Pulse Ox 90 L 06/14/20 11:18
== END 2020-06-14 11:40 | disposition home or self-care (01) ==
LOC: JD.SDS 06:50
PROVIDERS: ATTEND Surgery
DX: K42.9 Umbilical hernia without obstruction or gangrene (principal); J44.9 Chronic obstructive pulmonary disease, unspecified; I25.10 Atherosclerotic heart disease of native coronary artery without angina pectoris; G47.33 Obstructive sleep apnea (adult) (pediatric); E78.2 Mixed hyperlipidemia; I11.0 Hypertensive heart disease with heart failure; E78.00 Pure hypercholesterolemia, unspecified; I73.9 Peripheral vascular disease, unspecified; I25.2 Old myocardial infarction; F41.9 Anxiety disorder, unspecified; Z98.890 Other specified postprocedural states; Z79.899 Other long term (current) drug therapy; Z88.1 Allergy status to other antibiotic agents; Z88.8 Allergy status to other drugs, medicaments and biological substances; Z87.891 Personal history of nicotine dependence; Z91.041 Radiographic dye allergy status
CPT/HCPCS: 49585; 93005; A9270; J1100; J2001; J2370; J2405; J2704; J3010; J3490; J7120; 00750

== ENCOUNTER 2021-01-17 08:07 | Emergency (ER) | payer MEDICARE, OTHER ==
[2021-01-17 08:23] VITALS: BP 133/78; PULSE 85
[2021-01-17] MEDS ORDERED: Acetaminophen 325 MG Tab PO ONE (08:36)
--- NOTE | 2021-01-17 09:06 | EDM.PDOC ---
ED HPI GENERAL MEDICAL PROBLEM - General Chief Complaint: Back Pain or Injury Stated Complaint: BACK PAIN Time Seen by Provider: 01/17/21 08:12 Source of Information: Reports: Patient History Limitations: Reports: No Limitations - History of Present Illness INITIAL COMMENTS - FREE TEXT/NARRATIVE: 75-year-old male presents to the emergency department with complaints of neck pain and low back pain. Patient states that 2 evenings ago he was out at the races and was in the bathroom and he states the floor was wet and he slipped and fell. He states that his feet went up in the air and he landed on his right hip. He states he is unsure of whether or not he hit his head however he did not lose consciousness. States that he has been taking Tylenol intermittently over the course the past 2 days however last dose was last evening about 9 PM. He states he has had a frontal headache since the event as well as cervical spinal pain and low back pain primarily in the right lumbar area and right hip. He states that it is difficult for him to go from lying to sitting as he has pain in his low back and when he attempts to ambulate he has pain that radiates down the back of his right leg. States that right lower back/lumbar pain also radiates around his beltline into his abdomen. Of note, the patient does take aspirin and Plavix daily. back Pain Score (Numeric/FACES): 8 - Related Data Allergies Allergy/AdvReac Type Severity Reaction Status Date / Time Iodinated Contrast Media Allergy Hives Verified 01/17/21 08:23 [Iodinated Contrast- Oral and IV Dye] lisinopril Allergy Cannot Verified 01/17/21 08:23 Remember ampicillin AdvReac Nausea and Verified 01/17/21 08:23 Vomiting atorvastatin calcium AdvReac Pain Verified 01/17/21 08:23 [From Lipitor] cefazolin AdvReac Nausea and Verified 01/17/21 08:23 Vomiting NSAIDS (Non-Steroidal AdvReac Contraindications Verified 01/17/21 08:23 Anti-Inflamma d/t taking Plavix rosuvastatin [From Crestor] AdvReac Muscle Verified 01/17/21 08:23 Aches Home Meds: Home Meds Carbidopa/Levodopa [Sinemet 25-100 mg Tablet] 1 tab PO DAILY 02/01/18 [History] Clopidogrel [Plavix] 75 mg PO DAILY 02/01/18 [History] Finasteride [Proscar] 5 mg PO DAILY 02/01/18 [History] Metoprolol Succinate 50 mg PO DAILY 02/01/18 [History] Nitroglycerin [Nitrostat] 0.4 mg BUCCAL ASDIRECTED PRN 02/01/18 [History] Oxybutynin [Oxybutynin ER] 5 mg PO DAILY 02/01/18 [History] Selegiline HCl 2.5 mg PO DAILY 02/01/18 [History] Tamsulosin [Flomax] 0.4 mg PO BID 02/01/18 [History] Acetaminophen [Tylenol Extra Strength] 1,000 mg PO Q4H PRN #0 02/04/18 [Rx] Pravastatin [Pravachol] 80 mg PO DAILY #60 tablet 12/07/18 [Rx] Aspirin 81 mg PO DAILY 06/11/20 [History] Melatonin 1 mg PO BEDTIME PRN 06/11/20 [History] Pantoprazole Sodium [Protonix] 20 mg PO DAILY 06/11/20 [History] Potassium Chloride 20 meq PO DAILY 06/11/20 [History] clonazePAM [Clonazepam] 1 mg PO BEDTIME 06/11/20 [History] hydroCHLOROthiazide [Hydrochlorothiazide] 25 mg PO DAILY 06/11/20 [History] Past Medical History HEENT History: Reports: Hard of Hearing, Impaired Vision Other HEENT History: wears eyeglasses, has dentures, has hearing aides Cardiovascular History: Reports: CAD, Heart Failure, High Cholesterol, Hypertension, [place], PVD, Stents Other Cardiovascular History: 3 stents placed in about 2004. 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, 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) lower leg with skin graft Dermatologic History: Reports: None - Infectious Disease History Infectious Disease History: Reports: C-Difficile, Measles, Mumps - Past Surgical History Head Surgeries/Procedures: Reports: None HEENT Surgical History: Reports: Cataract Surgery, Eye Surgery Cardiovascular Surgical History: Reports: None Respiratory Surgical History: Reports: None GI Surgical History: Reports: Cholecystectomy, Colonoscopy, EGD Male Surgical History: Reports: Other (See Below) Endocrine Surgical History: Reports: None Neurological Surgical History: Reports: Laminectomy, Lumbar Spine Musculoskeletal Surgical History: Reports: Knee Replacement, Shoulder Surgery Oncologic Surgical History: Reports: None Dermatological Surgical History: Reports: None, Skin Graft Social & Family History - Family History Family Medical History: No Pertinent Family History - Tobacco Use Tobacco Use Status *Q: Former Tobacco User Used Tobacco, but Quit: Yes Month/Year Tobacco Last Used: 2006 - Caffeine Use Caffeine Use: Reports: Coffee, Soda - Recreational Drug Use Recreational Drug Use: No - Living Situation & Occupation Living situation: Reports: Other ED ROS GENERAL - Review of Systems Review Of Systems: Comprehensive ROS is negative, except as noted in HPI. ED EXAM,LOWER BACK PAIN/INJURY - Physical Exam Exam: See Below Exam Limited By: No Limitations General Appearance: Alert, WD/WN, No Apparent Distress Eye Exam: Bilateral Eye: EOMI, PERRL Ears: Normal External Exam, Hearing Grossly Normal Nose: Normal Inspection Throat/Mouth: Normal Inspection, Normal Lips, Normal Voice, No Airway Compromise Head: Atraumatic, Normocephalic Neck: Normal Inspection, Supple, Full Range of Motion, Tender Lateral, Tender Midline Respiratory/Chest: No Respiratory Distress, Lungs Clear (Fine expiratory wheeze noted with exertion; patient states he does wear a CPAP; states he has been short of breath however he did speak with his primary provider regarding this approximately 1 month ago and she offered to put him on an inhaler and he refused.), Normal Breath Sounds (Fine expiratory wheeze noted with exertion), No Accessory Muscle Use, Chest Non-Tender Cardiovascular: Normal Peripheral Pulses, Regular Rate, Rhythm, No Edema, No Murmur GI/Abdominal: Normal Bowel Sounds, Soft, Non-Tender, No Distention (Male) Exam: Deferred Rectal (Males) Exam: Deferred Back Exam: Normal Inspection, Paraspinal Tenderness (Cervical and lumbar), Vertebral Tenderness (Cervical) Extremities: Normal Inspection, Normal Range of Motion, Non-Tender, No Pedal Edema, Normal Capillary Refill Neurological: Alert, Normal Mood/Affect, CN II-XII Intact, Normal Gait (Slow to rise from lying to sitting to standing to ambulating due to pain), Oriented x 3 Psychiatric: Normal Affect, Normal Mood Skin Exam: Warm, Dry, Intact, Normal Color, No Rash Lymphatic: No Adenopathy Course - Vital Signs Text/Narrative:: Upon assessment, the patient does have pain noted to his occipital area with palpation. He does have cervical spine tenderness noted around C5 and C6 area. He also has paraspinal tenderness noted around C5 and C6. Patient has parasp inal tenderness noted to the right lumbar area. He also has SI discomfort with palpation. He is slow to rise out of bed from sitting to standing position however he is able to ambulate. When he does this he states he does have shooting pain radiating down the back of his right leg. He is able to lay flat in bed and raise each leg independently to 60 degrees without any lower back or hip discomfort. I have ordered a CT of the head, cervical spine, lumbar spine and right hip. I have also ordered Tylenol 650 mg x 1 dose now. Last Recorded V/S: Last Vital Signs Temp 96.9 F 01/17/21 08:20 Pulse 85 01/17/21 08:20 Resp 18 01/17/21 08:20 BP 133/78 01/17/21 08:20 Pulse Ox 92 L 01/17/21 08:20 - Orders/Labs/Meds Orders: Active Orders 24 hr Category Date Time Status Hip wo Cont Rt [CT] Stat Exams 01/17/21 08:35 Taken Meds: Medications Discontinued Medications Generic Name Dose Route Start Last Admin Trade Name Freq PRN Reason Stop Dose Admin Acetaminophen 650 mg 01/17/21 08:36 01/17/21 08:56 Acetaminophen 325 Mg Tab PO 01/17/21 08:37 650 mg NOW ONE Administration - Re-Assessments/Exams Free Text/Narrative Re-Assessment/Exam: 01/17/21 10:[address]: Ventricles along with basal cisterns and sulci over the convexities are mildly prominent. Minimal diminished density is noted within the periventricular white matter. No other abnormal parenchymal densities are seen. No evidence of intracranial hemorrhage is seen. No midline shift or mass-effect is seen. Bone window settings were reviewed. Mild mucosal thickening is seen within both maxillary sinuses. No acute paranasal sinus findings are appreciated. Visualized mastoid sinuses are clear. No acute calvarial abnormality is appreciated. Radiologist impression CT cervical spine: There is mild disc space narrowing at C2-3. Severe disc space narrowing is noted at C3-4. Fairly severe to space narrowing noted at C6-7. Other does show mildly diffuse disc space narrowing. Anterior osteophytes are scattered within the cervical spine. Posterior osteophytes are noted at C3-4. Mild degenerative apophyseal changes seen within the cervical spine. Degenerative changes is noted between the dens and anterior arch of C1 as well as slight calcification within the posterior ligament posterior to the dens. Mild bilateral neuroforaminal stenosis is noted at C3-4. Other neuroforamina are patent. No bony central canal stenosis is seen. No acute fracture is appreciated. No abnormal subluxation is seen. CT lumbar spine: T11-12 disc space narrowing is noted within the vacuum disc phenomenon and anterior osteophytes. No central Stenosis or neural foraminal stenosis is seen. T12-L1 posterior disc space narrowing is seen. Posterior disc is preserved. No central canal stenosis or neural foraminal stenosis is seen. L1-2 severe disc space narrowing noted with endplate sclerosis. Posterior osteophytes are seen. Circumferential disc bulge is present. No central canal stenosis is noted. Mild narrowing of the right-sided neural foramina is seen. Left neuroforamina is patent. L2-3 moderate disc space narrowing is noted with it none vacuum disc phenomena. Circumferential disc bulge is seen. Mild degenerative apophyseal changes seen. Minimal retrolisthesis is seen. No central canal stenosis is noted. Moderate right- sided neuroforaminal stenosis is seen. Left neuroforamina is patent. L3-4 posterior disc space narrowing is noted. Circumferential disc bulge is seen. Thickening of the ligamentum flavum is seen. Findings cause mild central canal stenosis. Neuroforamina shows slight disc bulging touching the existing nerve roots on both sides. L4-5 mild posterior to space narrowing is seen. Fairly severe degenerative apophyseal changes noted. Slight circumferential disc bulge is seen. No central canal stenosis or neuroforaminal stenosis is seen. L5-S1 posterior disc base narrowing is not seen. Mild diffuse posterior disc bulge is seen. No central canal stenosis or neuroforaminal stenosis is seen. Moderate degenerative apophyseal changes noted. No fracture is appreciated. No acute subluxation is seen. Diffuse vascular calcification is noted. Cyst is seen on the left kidney. CT of the right hip radiologist impression: Minimal osteophytes are seen off the femoral head. Mild joint space narrowing is noted within the lower lumbar spine. Diffuse vascular calcification is noted. Mild degenerative vacuum phenomenon is seen within the sac grow iliac joints. No acute fracture or other bony abnormality is appreciated. Prostate gland is enlarged and contains calcifications. No acute soft tissue abnormality is definitely appreciated. Patient will be discharged home with recommendations that he take Tylenol for the discomfort and follow-up with his primary care provider for further evaluation. Departure - Departure Time of Disposition: 10:25 Disposition: Home, Self-Care 01 Condition: Good Clinical Impression: Fall from ground level - Discharge Information Referrals: Renee Monreal MD [Primary Care Provider] - Forms: ED Department Discharge Additional Instructions: You were seen in the emergency department today after falling [address] scan of the head, cervical spine, lumbar spine and right hip were completed. These were all essentially unremarkable and there is no acute breaks/fractures found on your CT reports. You are likely very sore due to falling. Day 2 and day 3 are the worst days after having an injury occur. Recommend that you take Tylenol 650 mg every 4 hours as needed for the discomfort. You should start to feel better within the next couple of days. If you are still having back and hip pain in about a week, recommend you follow-up with your primary care provider. Sepsis Event Note (ED) - Evaluation Sepsis Screening Result: No Definite Risk - Focused Exam Vital Signs: Vital Signs Temp Pulse Resp BP Pulse Ox 01/17/21 08:20 96.9 F 85 18 133/78 92 L - My Orders Last 24 Hours: My Active Orders 01/17/21 08:35 Hip wo Cont Rt [CT] Stat - Assessment/Plan Last 24 Hours: My Active Orders 01/17/21 08:35 Hip wo Cont Rt [CT] Stat
--- NOTE | 2021-01-17 09:19 | CT ---
CT cervical spine Technique: Multiple axial sections were obtained from above C1 inferiorly to the mid T2 vertebral level. Reconstructed coronal and sagittal images were obtained. Comparison: No prior cervical spine imaging is available. Findings: There is mild disc space narrowing at C2-3. Severe disc space narrowing is noted at C3-4. Fairly severe disc space narrowing is noted at C6-7. Other discs shows mild diffuse disc space narrowing. Anterior osteophytes are scattered within the cervical spine. Posterior osteophytes are noted at C3-4. Mild degenerative apophyseal change is seen within the cervical spine. Degenerative change is noted between the dens and anterior arch of C1 as well as slight calcification within the posterior ligament posterior to the dens. Mild bilateral neural foraminal stenosis is noted at C3-4. Other neural foramina are patent. No bony central canal stenosis is seen. No acute fracture is appreciated. No abnormal subluxation is seen. Impression: 1. Mild diffuse degenerative change as noted above. 2. No acute fracture or subluxation is appreciated. Diagnostic code #2
--- NOTE | 2021-01-17 09:21 | CT ---
Head CT Technique: Multiple axial sections through the brain were obtained. Intravenous contrast was not utilized. Reconstructed coronal and sagittal images were obtained. Comparison: No prior intracranial imaging is available. Findings: Ventricles along with basal cisterns and sulci over the convexities are mildly prominent. Minimal diminished density is noted within the periventricular white matter. No other abnormal parenchymal densities are seen. No evidence of intracranial hemorrhage is seen. No midline shift or mass-effect is seen. Bone window settings were reviewed. Mild mucosal thickening is seen within both maxillary sinuses. No acute paranasal sinus findings are appreciated. Visualized mastoid sinuses are clear. No acute calvarial abnormality is appreciated. Impression: 1. Minimal sinus findings believed to be chronic. 2. Mild senescent change as noted above. 3. Nothing acute is appreciated on noncontrast head CT study. Diagnostic code #2
--- NOTE | 2021-01-17 09:29 | CT ---
CT lumbar spine Technique: Multiple axial sections were obtained from above the T11-12 disc inferiorly through the L5-S1 disc. Reconstructed coronal and sagittal images were obtained. Comparison: No prior lumbar spine imaging is available. Findings: T11-12: Disc space narrowing is noted with vacuum disc phenomena and anterior osteophytes. No central canal stenosis or neural foraminal stenosis is seen. T12-L1: Posterior disc space narrowing is seen. Posterior disc is preserved. No central canal stenosis or neural foraminal stenosis is seen. L1-2: Severe disc space narrowing is noted with endplate sclerosis. Posterior osteophytes are seen. Circumferential disc bulge is present. No central canal stenosis is noted. Mild narrowing of the right-sided neural foramen is seen. Left neural foramen is patent. L2-3: Moderate disc space narrowing is noted with vacuum disc phenomena. Circumferential disc bulge is seen. Mild degenerative apophyseal change is seen. Minimal retrolisthesis is seen. No central canal stenosis is noted. Moderate right-sided neural foraminal stenosis is seen. Left neural foramen is patent. L3-4: Posterior disc space narrowing is noted. Circumferential disc bulge is seen. Thickening of the ligamentum flavum is seen. Findings cause mild central canal stenosis. Neural foramina shows slight disc bulging touching the exiting nerve roots on both sides. L4-5: Mild posterior disc space narrowing is seen. Fairly severe degenerative apophyseal change is noted. Slight circumferential disc bulge is seen. No central canal stenosis or neural foraminal stenosis is seen. L5-S1: Posterior disc space narrowing is seen. Mild diffuse posterior disc bulge is seen. No central canal stenosis or neural foraminal stenosis is seen. Moderate degenerative apophyseal change is noted. No fracture is appreciated. No acute subluxation is seen. Diffuse vascular calcification is noted. Cyst is seen off the left kidney. Impression: 1. Diffuse degenerative change as noted above. Vascular calcification is also noted. Left renal cyst is also seen. 2. No acute fracture or acute subluxation is seen. Diagnostic code #3
--- NOTE | 2021-01-17 11:01 | CT ---
CT right hip Technique: Multiple axial sections through the right hip were obtained. Reconstructed coronal and sagittal images were obtained. Comparison: No prior right hip study is available. Findings: Minimal osteophytes are seen off the femoral head. Mild joint space narrowing is noted within the lower lumbar spine. Diffuse vascular calcification is noted. Mild degenerative vacuum phenomena is seen within the sacroiliac joints. No acute fracture or other bony abnormality is appreciated. Prostate gland is enlarged and contains calcifications. No acute soft tissue abnormality is definitely appreciated. Impression: 1. Findings as noted above. 2. No acute fracture is seen on CT study of the right hip. Diagnostic code #2 MTDD
== END 2021-01-17 10:41 | disposition home or self-care (01) ==
LOC: JD.ED 08:07
DX: M54.2 Cervicalgia (principal); M54.5 Low back pain; I25.10 Atherosclerotic heart disease of native coronary artery without angina pectoris; I11.0 Hypertensive heart disease with heart failure; I50.9 Heart failure, unspecified; I25.2 Old myocardial infarction; E78.00 Pure hypercholesterolemia, unspecified; J44.9 Chronic obstructive pulmonary disease, unspecified; K21.9 Gastro-esophageal reflux disease without esophagitis; Z87.891 Personal history of nicotine dependence; Z79.82 Long term (current) use of aspirin; Z79.02 Long term (current) use of antithrombotics/antiplatelets; Z79.899 Other long term (current) drug therapy; Z88.0 Allergy status to penicillin; Z88.1 Allergy status to other antibiotic agents; Z91.041 Radiographic dye allergy status; Z88.8 Allergy status to other drugs, medicaments and biological substances; W18.39XA Other fall on same level, initial encounter
CPT/HCPCS: 70450; 72125; 72131; 73700; 99283; A9270

== ENCOUNTER 2021-04-14 19:29 | Emergency (ER) | payer MEDICARE, OTHER ==
[2021-04-14 19:50] VITALS: BP 136/80
--- NOTE | 2021-04-14 19:56 | EDM.PDOC ---
ED HPI GENERAL MEDICAL PROBLEM - General Chief Complaint: General Stated Complaint: FELL AND INJURED LEFT RIBS Time Seen by Provider: 04/14/21 19:53 - History of Present Illness INITIAL COMMENTS - FREE TEXT/NARRATIVE: 75-year-old male presents the emergency room after having a pretty good fall earlier today. Patient was walking [place] and tripped over a speed bump. He got his hands out in front of him but he still landed his head on his hands fairly hard. Patient is on Plavix. He has a lot of discomfort in his ribs on the left side does not seem to have a lot of breathing difficulties however he can hurts all over he is abdominal pain after the fall and some neck discomfort as well. He denies any loss of consciousness does have a little bit of a headache. Left Thoracic Pain Score (Numeric/FACES): 4 - Related Data Allergies Allergy/AdvReac Type Severity Reaction Status Date / Time Iodinated Contrast Media Allergy Hives Verified 04/14/21 19:50 [Iodinated Contrast- Oral and IV Dye] lisinopril Allergy Cannot Verified 04/14/21 19:50 Remember ampicillin AdvReac Nausea and Verified 04/14/21 19:50 Vomiting atorvastatin calcium AdvReac Pain Verified 04/14/21 19:50 [From Lipitor] cefazolin AdvReac Nausea and Verified 04/14/21 19:50 Vomiting NSAIDS (Non-Steroidal AdvReac Contraindications Verified 04/14/21 19:50 Anti-Inflamma d/t taking Plavix rosuvastatin [From Crestor] AdvReac Muscle Verified 04/14/21 19:50 Aches Home Meds: Home Meds Carbidopa/Levodopa [Sinemet 25-100 mg Tablet] 1 tab PO DAILY 02/01/18 [History] Clopidogrel [Plavix] 75 mg PO DAILY 02/01/18 [History] Finasteride [Proscar] 5 mg PO DAILY 02/01/18 [History] Metoprolol Succinate 50 mg PO DAILY 02/01/18 [History] Nitroglycerin [Nitrostat] 0.4 mg BUCCAL ASDIRECTED PRN 02/01/18 [History] Oxybutynin [Oxybutynin ER] 5 mg PO DAILY 02/01/18 [History] Selegiline HCl 2.5 mg PO DAILY 07/13/18 [History] Tamsulosin [Flomax] 0.4 mg PO BID 02/01/18 [History] Acetaminophen [Tylenol Extra Strength] 1,000 mg PO Q4H PRN #0 02/04/18 [Rx] Pravastatin [Pravachol] 80 mg PO DAILY #60 tablet 12/07/18 [Rx] Aspirin 81 mg PO DAILY 06/11/20 [History] Melatonin 1 mg PO BEDTIME PRN 06/11/20 [History] Pantoprazole Sodium [Protonix] 20 mg PO DAILY 06/11/20 [History] Potassium Chloride 20 meq PO DAILY 06/11/20 [History] clonazePAM [Clonazepam] 1 mg PO BEDTIME 06/11/20 [History] hydroCHLOROthiazide [Hydrochlorothiazide] 25 mg PO DAILY 06/11/20 [History] Acetaminophen/oxyCODONE [Percocet 325-5 MG] 1 each PO ASDIRECTED PRN #15 tab 04/14/21 [Rx] Past Medical History HEENT History: Reports: Hard of Hearing, Impaired Vision Other HEENT History: wears eyeglasses, has dentures, has hearing aides Cardiovascular History: Reports: CAD, Heart Failure, High Cholesterol, Hyperte nsion, [place], PVD, Stents Other Cardiovascular History: 3 stents placed in about 2004. 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, 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) lower leg with skin graft Dermatologic History: Reports: None - Infectious Disease History Infectious Disease History: Reports: C-Difficile, Measles, Mumps - Past Surgical History Head Surgeries/Procedures: Reports: None HEENT Surgical History: Reports: Cataract Surgery, Eye Surgery Cardiovascular Surgical History: Reports: None Respiratory Surgical History: Reports: None GI Surgical History: Reports: Cholecystectomy, Colonoscopy, EGD Male Surgical History: Reports: Other (See Below) Endocrine Surgical History: Reports: None Neurological Surgical History: Reports: Laminectomy, Lumbar Spine Musculoskeletal Surgical History: Reports: Knee Replacement, Shoulder Surgery Oncologic Surgical History: Reports: None Dermatological Surgical History: Reports: None, Skin Graft Social & Family History - Family History Family Medical History: No Pertinent Family History - Caffeine Use Caffeine Use: Reports: Coffee, Soda - Living Situation & Occupation Living situation: Reports: Other ED ROS GENERAL - Review of Systems Review Of Systems: See Below Constitutional: Reports: No Symptoms HEENT: Reports: No Symptoms Respiratory: Reports: Other (Chest wall pain) Cardiovascular: Reports: No Symptoms Endocrine: Reports: No Symptoms GI/Abdominal: Reports: No Symptoms : Reports: No Symptoms Musculoskeletal: Reports: Other (Pain from the fall) Skin: Reports: No Symptoms Neurological: Reports: Headache Psychiatric: Reports: No Symptoms ED EXAM, GENERAL - Physical Exam Exam: See Below Exam Limited By: No Limitations General Appearance: Alert, No Apparent Distress Eye Exam: Bilateral Eye: Normal Inspection, PERRL Ears: Normal External Exam, Normal Canal, Hearing Grossly Normal, Normal TMs Nose: Normal Inspection, Normal Mucosa, No Blood Throat/Mouth: Normal Inspection, Normal Lips, Normal Gums, Normal Oropharynx, Normal Voice, No Airway Compromise Head: Atraumatic, Normocephalic Neck: Other (He has some vague tenderness with palpation). No: Tender Midline Respiratory/Chest: No Respiratory Distress, Lungs Clear, Normal Breath Sounds, Other (Left-sided chest wall discomfort with palpation) GI/Abdominal: Normal Bowel Sounds, Soft, Tender (Sided abdominal discomfort with palpation) Back Exam: Normal Inspection, Full Range of Motion Extremities: Normal Inspection, Normal Range of Motion Neurological: Alert, Oriented, Normal Cognition Course - Vital Signs Last Recorded V/S: Last Vital Signs Temp 36.3 C 04/14/21 19:48 Pulse 84 04/14/21 19:48 Resp 16 04/14/21 19:48 BP 136/80 04/14/21 19:48 Pulse Ox 94 L 04/14/21 19:48 - Orders/Labs/Meds Orders: Active Orders 24 hr Category Date Time Status Cervical Spine wo Cont [CT] Stat Exams 04/14/21 20:10 Taken Chest Abdomen Pelvis wo Cont [CT] Stat Exams 04/14/21 20:10 Taken Head wo Cont [CT] Stat Exams 04/14/21 20:10 Taken Sodium Chloride 0.9% [Normal Saline] 1,000 ml Med 04/14/21 20:15 Active IV ASDIRECTED Medication Orders Sodium Chloride (Normal Saline) 1,000 mls @ 100 mls/hr IV ASDIRECTED MORALES Last Admin: 04/14/21 21:47 Dose: 100 mls/hr Documented by: ANTONETTE Labs: Laboratory Tests 04/14/21 04/14/21 04/14/21 Range/Units 20:19 20:19 20:19 WBC 10.26 H (4.23-9.07) K/mm3 RBC 4.89 (4.63-6.08) M/mm3 Hgb 14.2 (13.7-17.5) gm/dl Hct 42.5 (40.1-51.0) % MCV 86.9 (79.0-92.2) fl MCH 29.0 (25.7-32.2) pg MCHC 33.4 (32.2-35.5) g/dl RDW Std Deviation 43.1 (35.1-43.9) fL Plt Count 229 (163-337) K/mm3 MPV 8.9 L (9.4-12.3) fl Neut % (Auto) 74.0 H (34.0-67.9) % Lymph % (Auto) 14.6 L (21.8-53.1) % Placer % (Auto) 9.4 (5.3-12.2) % Eos % (Auto) 1.4 (0.8-7.0) Baso % (Auto) 0.2 (0.1-1.2) % Neut # (Auto) 7.60 H (1.78-5.38) K/mm3 Lymph # (Auto) 1.50 (1.32-3.57) K/mm3 Placer # (Auto) 0.96 H (0.30-0.82) K/mm3 Eos # (Auto) 0.14 (0.04-0.54) K/mm3 Baso # (Auto) 0.02 (0.01-0.08) K/mm3 PT 10.9 (9.7-12.0) SECONDS INR 0.98 APTT 23.3 (21.7-31.4) SECONDS Sodium 140 (136-145) mEq/L Potassium 4.0 (3.5-5.1) mEq/L Chloride 102 (98-107) mEq/L Carbon Dioxide 32 (21-32) mEq/L Anion Gap 10.0 (5-15) BUN 28 H (7-18) mg/dL Creatinine 1.2 (0.7-1.3) mg/dL Est Cr Clr Drug Dosing 46.27 mL/min Estimated GFR (MDRD) 59 (>60) mL/min BUN/Creatinine Ratio 23.3 H (14-18) Glucose 116 H (70-99) mg/dL Calcium 9.3 (8.5-10.1) mg/dL Total Bilirubin 0.3 (0.2-1.0) mg/dL AST 19 (15-37) U/L ALT 23 (16-63) U/L Alkaline Phosphatase 70 (46-116) U/L Total Protein 7.2 (6.4-8.2) g/dl Albumin 3.9 (3.4-5.0) g/dl Globulin 3.3 gm/dL Albumin/Globulin Ratio 1.2 (1-2) Meds: Medications Generic Name Dose Route Start Last Admin Trade Name Maryann PRN Reason Stop Dose Admin Sodium Chloride 1,000 mls @ 100 mls/hr 04/14/21 20:15 04/14/21 21:47 Normal Saline IV 100 mls/hr ASDIRECTED MORALES Administration Discontinued Medications Generic Name Dose Route Start Last Admin Trade Name Maryann PRN Reason Stop Dose Admin Fentanyl 50 mcg 04/14/21 20:08 04/14/21 20:30 Fentanyl 100 Mcg/2 Ml Sdv IVPUSH 04/14/21 20:09 50 mcg ONETIME ONE Administration Fentanyl 50 mcg 04/14/21 22:03 04/14/21 22:09 Fentanyl 100 Mcg/2 Ml Sdv IVPUSH 04/14/21 22:04 50 mcg ONETIME ONE Administration Sodium Chloride 500 mls @ 999 mls/hr 04/14/21 20:07 04/14/21 20:30 Normal Saline IV 04/14/21 20:37 999 mls/hr .BOLUS ONE Administration Ondansetron HCl 4 mg 04/14/21 20:08 04/14/21 20:30 Ondansetron 4 Mg/2 Ml Sdv IVPUSH 04/14/21 20:09 4 mg ONETIME ONE Administration - Re-Assessments/Exams Free Text/Narrative Re-Assessment/Exam: 04/14/21 22:34 Patient is reasonably decent pain control. He like to go home at this point CTs of the head and C-spine were unremarkable. Because of his contrast allergy the patient had unenhanced CTs of the chest abdomen pelvis these were negative for acute changes. Patient is feeling much better at this time actually. And would like to go home. He has some Percocet at home he usually takes one half every 6-8 hours as needed he will continue with this. I will send a few more to [facility] by [place]. Departure - Departure Time of Disposition: 22:35 Disposition: Home, Self-Care 01 Clinical Impression: Head injury, Chest wall contusion, Contusion, abdominal wall - Discharge Information Referrals: Renee Monreal MD [Primary Care Provider] - Forms: ED Department Discharge Additional Instructions: Return to the emergency room with any questions problems or worsening symptoms. Use of Percocet 1/2-1 every 6-8 hours as needed for pain. Use a good stool softener with these as they can cause constipation. I have sent a prescription to [facility] by [place] pick these up in the morning use a good stool softener while taking this medication as it can cause constipation. Do not drive within 12 hours of using this medication or use potentially hazardous equipment. Follow-up with your regular physician or healthcare provider early this next week. Sepsis Event Note (ED) - Evaluation Sepsis Screening Result: No Definite Risk - Focused Exam Vital Signs: Vital Signs Temp Pulse Resp BP Pulse Ox 04/14/21 19:48 36.3 C 84 16 136/80 94 L - My Orders Last 24 Hours: My Active Orders 04/14/21 20:10 Cervical Spine wo Cont [CT] Stat Chest Abdomen Pelvis wo Cont [CT] Stat Head wo Cont [CT] Stat 04/14/21 20:15 Sodium Chloride 0.9% [Normal Saline] 1,000 ml IV ASDIRECTED - Assessment/Plan Last 24 Hours: My Active Orders 04/14/21 20:10 Cervical Spine wo Cont [CT] Stat Chest Abdomen Pelvis wo Cont [CT] Stat Head wo Cont [CT] Stat 04/14/21 20:15 Sodium Chloride 0.9% [Normal Saline] 1,000 ml IV ASDIRECTED
[2021-04-14] MEDS ORDERED: Sodium Chloride 0.9% 500 ML IV ONE (20:07)
[2021-04-14] MEDS ORDERED: fentaNYL 100 MCG/2 ML SDV IVPUSH ONE ×2 (20:08→22:03)
[2021-04-14] MEDS ORDERED: Ondansetron 4 MG/2 ML SDV IVPUSH ONE (20:08)
[2021-04-14] MEDS ORDERED: Sodium Chloride 0.9% 1,000 ML IV SCH (20:15)
[2021-04-14 23:08] VITALS: PULSE 82
--- NOTE | 2021-04-15 07:53 | CT ---
CT cervical spine Technique: Multiple axial sections were obtained from above C1 inferiorly to the posterior T2-3 disc. Reconstructed coronal and sagittal images were obtained. Comparison: Prior CT cervical spine study of 01/17/21. Findings: Severe disc space narrowing is noted at C3-4 and C6-7. Loss of disc space narrowing is seen within other portions of the spine. Posterior osteophytes are seen most prominent at C3-4 and C6-7. Mild bilateral neural foraminal stenosis is noted at C3-4. No bony central canal stenosis is seen. Mild scattered degenerative apophyseal change is noted. Degenerative change is also noted between the dens and anterior arch of C1. No acute fracture is seen. No abnormal subluxation is seen. Impression: 1. Degenerative change as noted above. No change from prior CT study is seen. 2. No acute fracture or subluxation is seen. Diagnostic code #2 I agree with preliminary report from [facility], finalized on 04/14/21, 10:50 PM CDT, code 1
--- NOTE | 2021-04-15 07:57 | CT ---
Head CT Technique: Multiple axial sections through the brain were obtained. Intravenous contrast was not utilized. Reconstructed coronal and sagittal images were obtained. Comparison: Prior head CT study of 01/17/21. Findings: Ventricles along with basal cisterns and sulci over the convexities are prominent. Minimal diminished density is noted within the periventricular white matter compatible with minimal small vessel ischemic demyelination change. No evidence of intracranial hemorrhage is seen. No midline shift or mass-effect is seen. Bone window settings were reviewed. Mucosal thickening or retention cyst is seen within the inferior left maxillary sinus measuring 1.9 cm. Other visualized sinuses show nothing acute. Visualized mastoid sinuses are intact. There is mild atherosclerotic calcification seen within the carotid siphon. No acute calvarial abnormality is appreciated. Impression: 1. Mild senescent change as noted above. 2. Chronic sinus findings. 3. No acute intracranial abnormality is appreciated. Diagnostic code #2 I agree with preliminary report from [facility], finalized on 04/14/21, 10:43 PM CDT, code 1
--- NOTE | 2021-04-15 07:57 | CT ---
CT chest Technique: Multiple axial sections were obtained through the chest. Intravenous contrast was not utilized. Reconstructed coronal and sagittal images were obtained. Comparison: No prior chest CT study is available, study is compared to prior chest x-ray of 02/04/17. Findings: Mediastinum shows atherosclerotic calcification within the thoracic aorta. Mediastinum shows no adenopathy. Coronary artery calcification is noted. No pericardial thickening is seen. No axillary adenopathy is seen. Lung window settings were reviewed which show no acute parenchymal change. No pleural effusions are pneumothorax are seen. Degenerative change is noted within the right shoulder which is severe. Mild degenerative change is scattered within the spine. Impression: 1. Nonacute findings as described above. Diagnostic code #2 I agree with preliminary report from [facility], finalized on 04/14/21, 10:44 PM CDT, code 1 CT abdomen and pelvis Technique: Multiple axial sections were obtained from above the dome of the diaphragm inferiorly through the pubic symphysis. Intravenous contrast and oral contrast were not utilized. Reconstructed coronal and sagittal images were obtained. Comparison: Prior CT abdomen and pelvis study of 08/30/14. Findings: Liver shows no focal abnormality. Spleen size is normal. Gallbladder contains a small calcified gallstone. Adrenal glands show no nodule. Pancreas is normal. Right kidney shows no hydronephrosis or mass. Cysts are seen within the left kidney. Largest cyst measures 7.4 cm. These findings are fairly stable from previous exam. Very small nonobstructing stone is noted within the inferior left kidney measuring around 2 mm. Abdominal aorta shows diffuse atherosclerotic calcification. Minimal ectasia is noted distally within the aorta measuring 2.3 cm. Atherosclerotic calcification continues into the iliac vessels. Prostate gland is slightly enlarged. No pelvic mass or adenopathy is seen. No free fluid is seen. Appendix is seen and is felt to be normal. Bone window settings were reviewed which show scattered degenerative change throughout the lumbar spine. No acute osseous abnormality is appreciated. Impression: 1. Chronic findings as described above. 2. Nothing acute is appreciated on noncontrast CT study of the abdomen and pelvis. Diagnostic code #2 I agree with preliminary report from [facility], finalized on 04/14/21, 10:44 PM CDT, code 1
== END 2021-04-14 23:08 | disposition home or self-care (01) ==
LOC: JD.ED 19:29
DX: S20.212A Contusion of left front wall of thorax, initial encounter (principal); S30.1XXA Contusion of abdominal wall, initial encounter; S09.90XA Unspecified injury of head, initial encounter; I25.10 Atherosclerotic heart disease of native coronary artery without angina pectoris; I11.0 Hypertensive heart disease with heart failure; I50.9 Heart failure, unspecified; E78.00 Pure hypercholesterolemia, unspecified; I25.2 Old myocardial infarction; J44.9 Chronic obstructive pulmonary disease, unspecified; N40.0 Benign prostatic hyperplasia without lower urinary tract symptoms; Z79.899 Other long term (current) drug therapy; Z79.82 Long term (current) use of aspirin; Z79.02 Long term (current) use of antithrombotics/antiplatelets; Z95.5 Presence of coronary angioplasty implant and graft; Z88.0 Allergy status to penicillin; Z91.041 Radiographic dye allergy status; Z88.8 Allergy status to other drugs, medicaments and biological substances; W01.0XXA Fall on same level from slipping, tripping and stumbling without subsequent striking against object, initial encounter
CPT/HCPCS: 36415; 70450; 71250; 72125; 74176; 80053; 85025; 85610; 85730; 96374; 96375; 96376; 99284; J2405; J3010; J7030

== ENCOUNTER 2021-12-12 13:41 | Emergency (ER) | payer MEDICARE, OTHER ==
[2021-12-12 13:48] VITALS: BP 147/125; PULSE 105
[2021-12-12] MEDS ORDERED: methylPREDNISolone Sodium Succinate 125 MG/2 ML SDV IVPUSH ONE (13:59)
[2021-12-12] MEDS ORDERED: Sodium Chloride 0.9% 10 ML Syringe FLUSH PRN (13:59)
[2021-12-12] MEDS ORDERED: Albuterol 0.083% 2.5 MG/3 ML Neb Soln NEB ONE (13:59)
[2021-12-12 15:15] LABS: CORONAVIRUS COVID-19 NAA NEGATIVE (NEGATIVE)
[2021-12-12] MEDS ORDERED: Albuterol/Ipratropium 3.0-0.5 MG/3 ML Neb Soln NEB ONE (15:22)
[2021-12-12] MEDS ORDERED: Doxycycline 100 MG Cap PO ONE (15:57)
== END 2021-12-12 16:10 | disposition home or self-care (01) ==
LOC: JD.ED 13:41
DX: J44.1 Chronic obstructive pulmonary disease with (acute) exacerbation (principal); I11.0 Hypertensive heart disease with heart failure; I50.9 Heart failure, unspecified; I25.10 Atherosclerotic heart disease of native coronary artery without angina pectoris; I25.2 Old myocardial infarction; Z90.49 Acquired absence of other specified parts of digestive tract; Z79.899 Other long term (current) drug therapy; Z79.82 Long term (current) use of aspirin; Z91.041 Radiographic dye allergy status; Z88.8 Allergy status to other drugs, medicaments and biological substances; Z88.0 Allergy status to penicillin; Z88.6 Allergy status to analgesic agent; Z20.822 Contact with and (suspected) exposure to COVID-19
CPT/HCPCS: 0240U; 36415; 36600; 71045; 80053; 81003; 82803; 83735; 83880; 84484; 85025; 85379; 86140; 93005; 94640; 96374; 99285; A9270; J2930; J3490; 87070; 87205; J7620-GY

== ENCOUNTER 2022-04-10 06:50 | Day surgery (SDC) | payer MEDICARE, OTHER ==
[~2022-04-10 06:50] MED LIST changes: +Acetaminophen 325 MG Tab PO SCH; -Lactated Ringers 1,000 ML IV SCH; +Lidocaine 1% 2 ML ONE; -Lidocaine 1%/Sod Bicarbonate in NS 8.4% 1 ML Syringe IDERM PRN; +Midazolam 1 MG/ML 2 ML SDV ONE; +Pregabalin 25 MG Cap PO SCH; +Propofol 200 MG/20 ML SDV ONE; +Rocuronium 50 MG/5 ML Vial ONE; +Ropivacaine 0.5% 5 MG/ML 30 ML SDV ONE; -Sodium Chloride 0.9% 10 ML Syringe FLUSH PRN; +VANCOmycin 1.5 GM/300 ML 1.5 GM in Premix Bag 1 BAG IV SCH; +fentaNYL 250 MCG/5 ML SDV ONE; +oxyCODONE ER 10 MG TAB.ER PO SCH
[2022-04-10] MEDS ORDERED: Vancomycin 1 GM SDV ONE (06:57)
[2022-04-10] MEDS ORDERED: Ondansetron 4 MG/2 ML SDV IVPUSH PRN (06:59)
[2022-04-10] MEDS ORDERED: HYDROmorphone 0.5 MG/0.5 ML Syringe IVPUSH PRN (06:59)
[2022-04-10] MEDS ORDERED: fentaNYL 100 MCG/2 ML SDV IVPUSH PRN (06:59)
[2022-04-10] MEDS ORDERED: Sodium Chloride 0.9% 10 ML Syringe FLUSH PRN (07:57)
[2022-04-10] MEDS ORDERED: Lidocaine 1%/Sod Bicarbonate in NS 8.4% 1 ML Syringe IDERM PRN (07:57)
[2022-04-10] MEDS ORDERED: Lactated Ringers 1,000 ML IV SCH (08:00)
[2022-04-10] MEDS ORDERED: ePHEDrine 50 MG/ML SDV ONE (08:15)
[2022-04-10] MEDS ORDERED: Sodium Chloride 0.9% 10 ML Syringe FLUSH SCH (09:00)
[2022-04-10] MEDS ORDERED: Sugammadex Sodium 200 MG/2 ML VIAL ONE (09:08)
[2022-04-10] MEDS ORDERED: Ondansetron 4 MG/2 ML SDV ONE (09:19)
[2022-04-10] MEDS ORDERED: oxyCODONE 5 MG Tab PO ONE (09:39)
[2022-04-10 12:32] VITALS: BP 101/76; PULSE 71
== END 2022-04-10 14:35 | disposition home or self-care (01) ==
LOC: JD.SDS 06:50 → EDSTATUS 07:30 → JD.SDS 14:35
PROVIDERS: ATTEND Orthopaedic Surgery
DX: M19.011 Primary osteoarthritis, right shoulder (principal); I10 Essential (primary) hypertension; R73.9 Hyperglycemia, unspecified; G47.33 Obstructive sleep apnea (adult) (pediatric); J44.9 Chronic obstructive pulmonary disease, unspecified; G20 Parkinson's disease; M85.89 Other specified disorders of bone density and structure, multiple sites; I25.10 Atherosclerotic heart disease of native coronary artery without angina pectoris; K21.9 Gastro-esophageal reflux disease without esophagitis; E78.2 Mixed hyperlipidemia; Z98.890 Other specified postprocedural states; Z88.1 Allergy status to other antibiotic agents; Z91.041 Radiographic dye allergy status; Z88.0 Allergy status to penicillin; Z88.8 Allergy status to other drugs, medicaments and biological substances; Z87.891 Personal history of nicotine dependence
CPT/HCPCS: 23472; 73020; 76000; 97166; 97530; 97535; A9270; C1713; C1769; C1776; J2250; J2405; J2704; J2795; J3010; J3370; J3490; J7120; 01638; 64415; 76942

== ENCOUNTER 2023-05-15 14:27 | Emergency (ER) | payer MEDICARE, OTHER ==
[2023-05-15 17:04] LABS: APPEARANCE,URINE CLEAR (Clear); BILIRUBIN,URINE NEGATIVE (Negative); COLOR,URINE YELLOW (Yellow); GLUCOSE,URINE NEGATIVE (Negative); KETONES,URINE NEGATIVE (Negative); LEUKOCYTE ESTERASE,URINE NEGATIVE (Negative); NITRITE,URINE NEGATIVE (Negative); OCCULT BLOOD,URINE NEGATIVE (Negative); PROTEIN,URINE NEGATIVE (Negative); UROBILINOGEN,URINE 0.2 (0.2-1.0)
[2023-05-15 17:11] LABS: BACTERIA,URINE FEW /hpf (FEW); MUCUS,URINE FEW /hpf (FEW); RBC,URINE 0-5 /hpf (0-5); SQUAMOUS EPITHELIAL CELLS,UR 0-5 /hpf (0-5); WBC,URINE 0-5 /hpf (0-5)
[2023-05-15] MEDS ORDERED: Sodium Chloride 0.9% 10 ML Syringe FLUSH PRN (17:45)
[2023-05-15 18:09] LABS: BASOPHILS PERCENT AUTO 0.2 % (0.0-1.0); HEMOGLOBIN 13.9 gm/dl (14.0-18.0); IMMATURE GRAN ABSOLUTE AUTO 0.02 K/mm3 (0.00-0.05); IMMATURE GRAN PERCENT AUTO 0.3 % (0.0-0.4); LYMPHOCYTES ABSOLUTE AUTO 0.6 K/mm3 (1.0-4.8); LYMPHOCYTES PERCENT AUTO 10.9 % (24.0-44.0); MEAN CORPUSCULAR HEMOGLOBIN 29.3 pg (28.0-32.0); MEAN CORPUSCULAR HGB CONC 33.1 g/dl (32.0-36.0); MEAN CORPUSCULAR VOLUME 88.6 fl (83.0-99.0); MEAN PLATELET VOLUME 8.7 fl (9.4-12.4); MONOCYTES ABSOLUTE AUTO 0.2 K/mm3 (0.0-0.8); MONOCYTES PERCENT AUTO 3.2 % (0.0-8.0); NEUTROPHILS PERCENT AUTO 85.4 % (41.0-71.0); PLATELET COUNT,PLT 233 K/mm3 (150-400); RED BLOOD CELL COUNT 4.74 M/mm3 (4.52-5.90); WHITE BLOOD CELL COUNT,WBC 5.89 K/mm3 (3.9-11.3)
[2023-05-15 18:41] LABS: A/G RATIO 1.1 (1-2); ALBUMIN 4.1 g/dl (3.4-5.0); ANION GAP 13.3 (5-15); BILIRUBIN TOTAL 0.4 mg/dL (0.2-1.0); EST CRCL DRUG DOSING (CG) 53.81 mL/min; POTASSIUM,K 4.3 mEq/L (3.5-5.1); PROTEIN TOTAL,TP 7.8 g/dl (6.4-8.2)
[2023-05-15] MEDS ORDERED: Iopamidol 612 MG/ML 100 ML Bottle IVPUSH ONE (19:00)
[2023-05-15] MEDS ORDERED: Trospium 20 MG Tab PO ONE (20:29)
[2023-05-15 20:37] VITALS: BP 136/70; PULSE 80
[2023-05-16] MEDS ORDERED: Trospium 20 MG Tab PO SCH (06:00)
== END 2023-05-15 20:36 | disposition home or self-care (01) ==
LOC: JD.ED 14:27
DX: N32.89 Other specified disorders of bladder (principal); J44.9 Chronic obstructive pulmonary disease, unspecified; I25.10 Atherosclerotic heart disease of native coronary artery without angina pectoris; I11.0 Hypertensive heart disease with heart failure; I50.9 Heart failure, unspecified; E78.00 Pure hypercholesterolemia, unspecified; I25.2 Old myocardial infarction; Z88.6 Allergy status to analgesic agent; Z88.8 Allergy status to other drugs, medicaments and biological substances; Z91.041 Radiographic dye allergy status; Z79.82 Long term (current) use of aspirin; Z79.899 Other long term (current) drug therapy
CPT/HCPCS: 36415; 51798; 74177; 80053; 81001; 85025; 99284; A9270; J3490; Q9967

== ENCOUNTER 2023-12-03 06:40 | Emergency (ER) | payer MEDICARE, OTHER ==
[2023-12-03 07:13] LABS: BASOPHILS ABSOLUTE AUTO 0.1 K/mm3 (0.0-0.2); BASOPHILS PERCENT AUTO 0.8 % (0.0-1.0); EOSINOPHILS ABSOLUTE AUTO 0.3 K/mm3 (0.0-0.4); HEMATOCRIT 45.2 % (42.0-52.0); HEMOGLOBIN 14.7 gm/dl (14.0-18.0); IMMATURE GRAN ABSOLUTE AUTO 0.06 K/mm3 (0.00-0.05); IMMATURE GRAN PERCENT AUTO 0.9 % (0.0-0.4); LYMPHOCYTES ABSOLUTE AUTO 2.1 K/mm3 (1.0-4.8); LYMPHOCYTES PERCENT AUTO 32.2 % (24.0-44.0); MEAN CORPUSCULAR HEMOGLOBIN 28.5 pg (28.0-32.0); MEAN CORPUSCULAR HGB CONC 32.5 g/dl (32.0-36.0); MEAN CORPUSCULAR VOLUME 87.6 fl (83.0-99.0); MEAN PLATELET VOLUME 8.9 fl (9.4-12.4); MONOCYTES ABSOLUTE AUTO 0.6 K/mm3 (0.0-0.8); MONOCYTES PERCENT AUTO 9.1 % (0.0-8.0); NEUTROPHILS ABSOLUTE AUTO 3.4 K/mm3 (1.8-7.7); PLATELET COUNT,PLT 191 K/mm3 (150-400); RED BLOOD CELL COUNT 5.16 M/mm3 (4.52-5.90); WHITE BLOOD CELL COUNT,WBC 6.58 K/mm3 (3.9-11.3)
[2023-12-03 07:17] LABS: A/G RATIO 1.1 (1-2); ALANINE AMINOTRANSFERASE,ALT 26 U/L (16-63); ALKALINE PHOSPHATASE 65 U/L (46-116); ASPARTATE AMNIOTRANSFERASE,AST 15 U/L (15-37); BILIRUBIN TOTAL 0.7 mg/dL (0.2-1.0); BLOOD UREA NITROGEN,BUN 23 mg/dL (7-18); BUN/CREATININE RATIO 20.9 (14-18); CALCIUM 9.5 mg/dL (8.5-10.1); CARBON DIOXIDE,CO2 31 mEq/L (21-32); CHLORIDE,CL 100 mEq/L (98-107); CREATININE 1.1 mg/dL (0.7-1.3); EST CRCL DRUG DOSING (CG) 49.94 mL/min; ESTIMATED GFR 69 mL/min (>60); GLUCOSE RANDOM 124 mg/dL (70-99); LIPASE 21 U/L (16-77); PROTEIN TOTAL,TP 7.5 g/dl (6.4-8.2); SODIUM,NA 138 mEq/L (136-145)
[2023-12-03] MEDS: Acetaminophen 325 MG Tab PO ONE (07:24)
[2023-12-03 07:26] LABS: TROPONIN I HIGH SENSITIVITY < 4 pg/mL (<=76)
[2023-12-03 09:21] VITALS: BP 142/80; PULSE 85
== END 2023-12-03 09:21 | disposition home or self-care (01) ==
LOC: JD.ED 06:40
DX: M25.551 Pain in right hip (principal); M25.552 Pain in left hip; R51.9 Headache, unspecified; I25.10 Atherosclerotic heart disease of native coronary artery without angina pectoris; I11.0 Hypertensive heart disease with heart failure; I50.9 Heart failure, unspecified; E78.00 Pure hypercholesterolemia, unspecified; J44.9 Chronic obstructive pulmonary disease, unspecified; Z79.899 Other long term (current) drug therapy; Z79.01 Long term (current) use of anticoagulants; Z79.82 Long term (current) use of aspirin; Z88.6 Allergy status to analgesic agent; Z88.5 Allergy status to narcotic agent; Z88.8 Allergy status to other drugs, medicaments and biological substances; Z91.041 Radiographic dye allergy status; Z88.0 Allergy status to penicillin; W01.198A Fall on same level from slipping, tripping and stumbling with subsequent striking against other object, initial encounter
CPT/HCPCS: 36415; 70450; 71045; 72125; 72170; 80053; 83690; 83880; 84484; 85025; 93005; 99284; A9270; 93010; 99282